=== PATIENT | female | born 1955 | race Caucasian/White ===

== ENCOUNTER → 2017-08-07 | Outpatient (CLI) | payer MEDICARE, SELFPAY | PROVIDERS: Visit Provider Nurse Practitioner Family | DX: J18.9 Pneumonia, unspecified organism (principal) | CPT/HCPCS: 36415; 71020; 80048; 85025; 86738 ==

== ENCOUNTER → 2017-09-15 10:37 | Outpatient (CLI) | payer MEDICARE, SELFPAY ==
--- NOTE | 2017-09-15 10:44 | MM_ITS ---
MM Dig screening mamm BI w/CAD CAD Screening ORDERING PHYSICIAN : Ezra Leyva MD PATIENT AGE: 61 years GENDER: Female COMPARISON: : Previous studies 123 27 August [address] 1-year-old. No hormones no new complaints. Previous aspiration breast. Previous breast reduction. TECHNIQUE: Standard CC and MLO images were obtained. R2 CAD reviewed. Additional MLO and CC nipple profile views bilaterally were performed FINDINGS: Low-density breast bilaterally with no dominant mass nor suspicious calcifications either breast. . no significant interval change in either breast . RIGHT BREAST:Stable right breast. Follow-up in one year. LEFT BREAST:No significant new findings follow up one year IMPRESSION: Stable bilateral mammogram. Low-density breast. No significant new findings. Follow-up one year recommended BI-RADS Category: 1 Negative RECOMMENDED FOLLOW-UP: 1YR - 1 YEAR FOLLOW-UP (A letter has been sent to the patient regarding results of the study.)
== END ==
PROVIDERS: PCP Internal Medicine Adolescent Medicine; Visit Provider Internal Medicine Adolescent Medicine
DX: Z12.31 Encounter for screening mammogram for malignant neoplasm of breast (principal)
CPT/HCPCS: 77067

== ENCOUNTER → 2018-10-02 08:10 | Outpatient (CLI) | payer MEDICARE, SELFPAY ==
--- NOTE | 2018-10-02 08:18 | MM_ITS ---
MM Dig screening mamm BI w/CAD CAD Screening COMPARISON: Digital mammograms with CAD 09/15/2017 and 09/02/2016 INDICATION: There is no personal or family history of breast cancer. The patient had breast reduction surgery 40 years ago TECHNIQUE: Standard CC and MLO images were obtained. R2 CAD reviewed. FINDINGS: The breasts are composed primarily of fat with minimal scattered fibroglandular densities in each breast. There is no new or suspicious lesion in either breast and there are no suspicious microcalcifications. There is no significant post surgical scarring in either breast. IMPRESSION: Fatty type breast parenchyma with no suspicious lesion seen BI-RADS Category: 2 Benign Finding(s) RECOMMENDED FOLLOW-UP: 1YR - 1 YEAR FOLLOW-UP (A letter has been sent to the patient regarding results of the study.)
== END ==
PROVIDERS: PCP Internal Medicine Adolescent Medicine; Visit Provider Internal Medicine Adolescent Medicine
DX: Z12.31 Encounter for screening mammogram for malignant neoplasm of breast (principal)
CPT/HCPCS: 77067

== ENCOUNTER 2018-12-10 16:02 | Observation (INO) ==
[2018-12-10 18:38] LABS: Basophils # 0.1 K/mm3 (0-0.2); Basophils % 0.9 % (0.1-2.0); Eosinophils # 0.5 K/mm3 (0.0-0.4); Eosinophils % 3.9 % (0.1-12.0); Hematocrit 34.4 % (37.0-47.0); Lymphocytes # 3.8 K/mm3 (0.7-4.5); Lymphocytes % 32.9 % (10-50); Mean Corpuscular HGB Conc 29.1 g/dL (31.8-35.4); Mean Corpuscular Hemoglobin 19.2 pg (27.0-31.2); Mean Corpuscular Volume 65.9 fl (81-99); Mean Platelet Volume 7.9 fl (7.4-10.4); Monocytes # 0.5 K/mm3 (0.1-1.0); Monocytes % 4.5 % (1.7-9.3); Neutrophils # 6.7 K/mm3 (1.8-7.8); Neutrophils % 57.8 % (37.0-80.0); Platelet Count 373 K/mm3 (142-424); Red Blood Count 5.21 M/mm3 (4.20-5.40); Red Cell Distribution Width 18.2 % (11.5-17.5); White Blood Count 11.6 K/mm3 (4.8-10.8)
[2018-12-10 19:06] LABS: Albumin Level 3.3 gm/dL (3.4-5.0); Albumin/Globulin Ratio 0.8 (1.1-1.8); Anion Gap 12.7 mEq/L (5-15); Bilirubin,Total 0.4 mg/dL (0.2-1.0); Calcium 9.1 mg/dL (8.5-10.1); Globulin 4.4 gm/dl (1.3-3.2); Potassium 3.7 mmoL/L (3.5-5.1); Total Protein,Serum 7.7 gm/dL (6.4-8.2)
--- NOTE | 2018-12-10 19:42 | History & Physical Report ---
*Admission Date: 12/10/18 *Chief complaint: Hypoxemia, dry cough *History of present illness: Ms. Byrd is a 63-year-old female well-known to our practice with history of reflux, diabetes, hypothyroidism. She additionally has complex medical history with severe thoracic kyphosis. She came to the office today for concern of recurrent pneumonia. Treated within the past 2 to 3 weeks as an outpatient for concern for pneumonia. Finished antibiotics but has had persistent cough. She states her cough is been present for 5 to 6 weeks. Is dry nonproductive. Was found to be hypoxemic in clinic with O2 sat of 86% after walking from the waiting room to the exam room. Additionally patient appeared pale and dyspneic. Sent by private vehicle to [facility] for admission and further assessment. Initial lab work noted to have anemia with severe microcytosis. This is a new finding after review of her outpatient lab work showing normal hemoglobin levels with normal MCV. Strong suspicion the patient has worsening restrictive lung disease due to her body habitus. Denies fevers, nausea vomiting, chest pain. Does report intermittent black stools that self resolved and of gone on for many months. [facility] History I have reviewed the patient's past medical history: Yes Medical History: Reports:: Diabetes Mellitus Type 2, Gastroesophageal Reflux Disease(GERD), Hyperlipidemia, Hypertension Denies:: Asthma, Chronic Obstructive Pulmonary Disease (COPD), Diabetes Mellitus Type 1, Myocardial Infarction, Renal Disease, Renal Insufficiency *Have you ever received a pneumonia vaccine?: No *Have you received a flu vaccine this season?: No Other Medical History: Reports: Arthritis, Liver Disease, Thyroid Disease (THYROIDECTOMY) Other Surgeries: Yes: Appendectomy, Cholecystectomy, Colonoscopy, Dilation and Curettage, Hysterectomy-Total, Thyroidectomy Amputation: No Fractures: No - *Social History Educational Level: Attended College Smoking Status: Never smoker Alcohol Intake: never Alcohol Intake Frequency:: other *Occupational Status:: disabled Housing: house Household Members: spouse *Travel in the last 8 weeks: None - Psychiatric History Expresses thoughts of harming self/others: None Suicide Plan Description: No Plan Family Hx:: Cancer, Heart Attack, Diabetes Review of Systems - Review of Systems Review of systems:: pertinent systems reviewed and negative unless documented below Meds Home Medications Medication Instructions Recorded Confirmed Type aspirin 325 mg tablet 2 tab PO ONCE tab 10/23/17 12/10/18 History calcium carbonate-vitamin D3 600 1 cap PO DAILY 10/23/17 12/10/18 History mg calcium-200 unit capsule cyanocobalamin (vit B-12) 1,000 1,000 mcg PO ONCE 10/23/17 12/10/18 History mcg tablet docusate sodium 100 mg capsule 4 tab PO QHS 10/23/17 12/10/18 History gabapentin 300 mg capsule 300 mg PO BID 90 Days cap 10/23/17 12/10/18 History insulin human U-100 NPH-regulr 14 unit SUB-Q QAM 10/23/17 12/10/18 History 70-30 mix 100 unit/mL subcutaneous susp levothyroxine 50 mcg tablet 50 mcg PO DAILY 90 Days tab 10/23/17 12/10/18 History losartan 50 mg tablet 50 mg PO DAILY 90 Days tab 10/23/17 12/10/18 History metformin 500 mg tablet 2 tab PO BID 90 Days tab 10/23/17 12/10/18 History omeprazole 40 mg capsule,delayed 40 mg PO ONCE 10/23/17 12/10/18 History release pyridoxine (vitamin B6) 100 mg 100 mg PO HS 10/23/17 12/10/18 History tablet rosuvastatin 10 mg tablet 10 mg PO HS 90 Days tab 08/20/18 12/10/18 History Insulin Detemir [Levemir 15 unit SQ HS 12/10/18 12/10/18 History 100units/mL 3mL flexpen] Loratadine/Pseudoephedrine 1 each PO HS 12/10/18 12/10/18 History [Claritin-D 24 Hour Tablet] Potassium 99 mg PO HS 12/10/18 12/10/18 History Pumpkin Seed Extract/Soy Germ [Azo 300 mg PO BID 12/10/18 12/10/18 History Bladder Control Capsule] Allergies Allergy/AdvReac Type Severity Reaction Status Date / Time clonazepam Allergy Severe I-HIVES Verified 10/22/18 10:00 diazepam Allergy Severe I-HIVES Verified 10/22/18 10:00 meperidine Allergy Severe HEMORRHAGE\ Verified 10/22/18 10:00 Penicillins Allergy Severe COMA Verified 10/22/18 10:00 tegaserod [From Zelnorm] Allergy Intermediate I-HIVES Verified 10/22/18 10:00 promethazine Allergy Mild HIVES,NAUSE Verified 10/22/18 10:00 A tramadol Allergy Mild I-HIVES Verified 10/22/18 10:00 canagliflozin [From Invokana] Allergy Unknown Verified 10/22/18 10:00 capsaicin [From Capzasin] Allergy Unknown Blister Verified 12/10/18 17:22 duloxetine [From Cymbalta] Allergy Unknown Verified 10/22/18 10:00 menthol [From Capzasin] Allergy Unknown Blister Verified 12/10/18 17:22 metformin [From Janumet] Allergy Unknown Verified 10/22/18 10:00 sitagliptin [From Janumet] Allergy Unknown Verified 10/22/18 10:00 empagliflozin Allergy Hives Verified 12/10/18 17:22 [From Jardiance] lisinopril AdvReac Cough Verified 12/10/18 17:22 CRANBERRIES Allergy Unknown I-HIVES Uncoded 08/20/18 08:51 Exam Vital signs and Labs for Last 24 Hours: Temp Pulse Resp BP Pulse Ox 98.0 F 82 16 155/78 H 98 12/10/18 17:48 12/10/18 17:48 12/10/18 17:48 12/10/18 17:48 12/10/18 17:48 Laboratory Results - last 24 hr 12/10/18 18:21: WBC 11.6 H, RBC 5.21, Hgb 10.0 L, Hct 34.4 L, MCV 65.9 L, MCH 19.2 L, MCHC 29.1 L, RDW 18.2 H, Plt Count 373, MPV 7.9, Neut % (Auto) 57.8, Lymph % (Auto) 32.9, [place] % (Auto) 4.5, Eos % (Auto) 3.9, Baso % (Auto) 0.9, Neut # (Auto) 6.7, Lymph # (Auto) 3.8, [place] # (Auto) 0.5, Eos # (Auto) 0.5 H, Baso # (Auto) 0.1 12/10/18 18:21: Sodium 138, Potassium 3.7, Chloride 103, Carbon Dioxide 26, Anion Gap 12.7, BUN 13, Creatinine 0.67, Estimated Creat Clear 94, Estimated GFR 89, Est GFR ( Amer) 107, Glucose 99, Calcium 9.1, Magnesium 1.7, Total Bilirubin 0.4, AST 42 H, ALT 40, Alkaline Phosphatase 89, Total Protein 7.7, Albumin 3.3 L, Globulin 4.4 H, Albumin/Globulin Ratio 0.8 L I & O for Last 24 hours: Intake & Output 12/07/18 12/08/18 12/09/18 12/10/18 23:59 23:59 23:59 23:59 Weight 104.355 kg - Constitutional mild distress, obese, chronically ill appearing - *Routine HEENT Exam Head: Present: normocephalic, atraumatic Eye: Present: EOMI, PERRL ENT: Present: mucous membranes moist - *Routine Neck Exam Present: supple, full ROM. Absent: JVD - Routine Chest/Breast/Axilla Exam Chest wall: Absent: tenderness - *Routine Respiratory Exam Present: CTA bilaterally, diminished air movement. Absent: wheezes, crackles - *Routine Cardiovascular Exam Present: RRR, Normal S1, Normal S2. Absent: murmur - *Routine Abdominal Exam Present: soft, normoactive bowel sounds. Absent: tenderness - *Routine Rectal Exam Patient deferred: visual exam - *Routine Exam Patient deferred: external exam - *Routine Extremities Exam Present: edema. Absent: cyanosis, clubbing - Routine Back/Spine/Pelvis Exam Back/Spine: Present: paraspinal tenderness (90 degree kyphotic deformity of thoracic spine) - *Routine Skin Exam Present: intact, pallor. Absent: cyanosis, erythema - *Routine Neurological Exam Present: alert, oriented X3. Absent: altered mental status Assessment and Plan (1) Hypothyroidism Current visit: Yes Status: Chronic Qualifiers: Hypothyroidism type: acquired Qualified Code(s): E03.9 - Hypothyroidism, unspecified Category: Medical Code(s): E03.9 - Hypothyroidism, unspecified Continue levothyroxine (2) Acute hypoxemic respiratory failure Current visit: Yes Status: Acute Category: Medical Code(s): J96.01 - Acute respiratory failure with hypoxia Suspect due to patient's kyphoscoliosis and poor air movement. We will trial BiPAP overnight. Oxygen as needed for goal sats greater than 88 while asleep, greater than 92 while awake. Would benefit from pulmonary consult, will pursue in the outpatient setting. Discussed possibility of physical therapy or orthopedics to pursue alternative therapies for kyphoscoliosis, patient declined at this time as she states these have been pursued before and she is nonoperative and has no interest in seeing physical therapy. Wore a brace previously for a year and found it to be excruciatingly uncomfortable and refuses to even consider doing that again. (3) Restrictive lung disease due to kyphoscoliosis Current visit: Yes Status: Chronic Category: Medical Code(s): J98.4 - Other disorders of lung; M41.9 - Scoliosis, unspecified (4) Diabetes mellitus with diabetic polyneuropathy Current visit: No Status: Chronic Qualifiers: Diabetes mellitus type: type 2 Category: Medical Code(s): E11.42 - Type 2 diabetes mellitus with diabetic polyneuropathy Continue home insulin regimen. (5) Microcytic anemia Current visit: Yes Status: Acute Category: Medical Code(s): D50.9 - Iron deficiency anemia, unspecified Review of previous lab work shows normal hemoglobin levels and normal MCV. Change is acute within the past 2-3 months. IN setting of reported occasional melenic stools, initiate Protonix. Occult stool pending. Will pursue surgical consult to discuss EGD/C-scope. Last colonoscopy performed 2005, cologard Jul 2017. No EGD, takes ASA 325 2 tabs twice daily. Previously TID.
[2018-12-11 07:35] LABS: Basophils # 0.1 K/mm3 (0-0.2); Basophils % 0.8 % (0.1-2.0); Eosinophils # 0.4 K/mm3 (0.0-0.4); Eosinophils % 3.8 % (0.1-12.0); Hemoglobin 9.6 g/dL (12.2-16.2); Lymphocytes % 28.3 % (10-50); Mean Corpuscular HGB Conc 29.9 g/dL (31.8-35.4); Mean Corpuscular Hemoglobin 19.7 pg (27.0-31.2); Mean Corpuscular Volume 65.9 fl (81-99); Mean Platelet Volume 7.8 fl (7.4-10.4); Monocytes # 0.5 K/mm3 (0.1-1.0); Monocytes % 5.1 % (1.7-9.3); Neutrophils # 6.6 K/mm3 (1.8-7.8); Platelet Count 335 K/mm3 (142-424); Red Blood Count 4.85 M/mm3 (4.20-5.40); Red Cell Distribution Width 18.2 % (11.5-17.5); White Blood Count 10.6 K/mm3 (4.8-10.8)
--- NOTE | 2018-12-11 07:38 | Pharmacy Consult Notes ---
[facility] Pharmacy VTE Monitoring - Patient Demographics Admission date: 12/11/18 Report Date: 12/11/18 Time: 07:26 Allergies/Adverse Reactions: Patient Allergies clonazepam Allergy (Severe, Verified 10/22/18 10:00) I-HIVES diazepam Allergy (Severe, Verified 10/22/18 10:00) I-HIVES meperidine Allergy (Severe, Verified 10/22/18 10:00) HEMORRHAGE\ Penicillins Allergy (Severe, Verified 10/22/18 10:00) COMA tegaserod [From Zelnorm] Allergy (Intermediate, Verified 10/22/18 10:00) I-HIVES promethazine Allergy (Mild, Verified 10/22/18 10:00) HIVES,NAUSEA tramadol Allergy (Mild, Verified 10/22/18 10:00) I-HIVES canagliflozin [From Invokana] Allergy (Unknown, Verified 10/22/18 10:00) capsaicin [From Capzasin] Allergy (Unknown, Verified 12/10/18 17:22) Blister duloxetine [From Cymbalta] Allergy (Unknown, Verified 10/22/18 10:00) menthol [From Capzasin] Allergy (Unknown, Verified 12/10/18 17:22) Blister metformin [From Janumet] Allergy (Unknown, Verified 10/22/18 10:00) sitagliptin [From Janumet] Allergy (Unknown, Verified 10/22/18 10:00) empagliflozin [From Jardiance] Allergy (Verified 12/10/18 17:22) Hives lisinopril Adverse Reaction (Verified 12/10/18 17:22) Cough CRANBERRIES Allergy (Unknown, Uncoded 08/20/18 08:51) I-HIVES Height: 1.68 m Weight: 103.504 kg Patient Problems: Current Active Problems (Updated 12/10/18 @ 23:09 by Esteban Villeda MD) Hypothyroidism (Chronic) Acute hypoxemic respiratory failure (Acute) Restrictive lung disease due to kyphoscoliosis (Chronic) Microcytic anemia (Acute) - VTE Risk Labs: VTE Related Lab Results Hgb 10.0 g/dL (12.2-16.2) L 12/10/18 18:21 Hct 34.4 % (37.0-47.0) L 12/10/18 18:21 Plt Count 373 K/mm3 (142-424) 12/10/18 18:21 BUN 13 mg/dL (7-18) 12/10/18 18:21 Creatinine 0.67 mg/dL (0.55-1.02) 12/10/18 18:21 Estimated Creat Clear 94 mL/min (50-200) 12/10/18 18:21 Was VTE Risk Assessment Performed: Yes VTE Score: 7 VTE Risk Level: Moderate Risk Clinical Trial Participant: No - Prophylaxis Types of VTE Prophylaxis: TEDS Knee High
[2018-12-11 07:45] LABS: Anion Gap 12.1 mEq/L (5-15); Calcium 8.8 mg/dL (8.5-10.1); Potassium 4.1 mmoL/L (3.5-5.1)
--- NOTE | 2018-12-11 08:25 | Consult Report ---
*Admission Date: 12/11/18 *Chief complaint: Cough, Shortness of Air *History of present illness: Patient is a 63-year-old white female with chronic lung disease and significant kyphosis with resultant chronic pain for which she has been taking aspirin 325 mg 3 times a day. She has recently been treated for pneumonia as an outpatient. She presented to her primary care provider's office yesterday with concerns for recurrent pneumonia due to cough and shortness of air. She was admitted and found to have microcytic anemia. Patient does admit to some self-limited melanic stools. Surgical consultation was obtained for possible endoscopy. Review of Systems - Review of Systems Review of systems:: pertinent systems reviewed and negative unless documented below [facility] History Medical History: Reports:: Diabetes Mellitus Type 2, Gastroesophageal Reflux Disease(GERD), Hyperlipidemia, Hypertension Denies:: Asthma, Chronic Obstructive Pulmonary Disease (COPD), Diabetes Mellitus Type 1, Myocardial Infarction, Renal Disease, Renal Insufficiency *Have you ever received a pneumonia vaccine?: No *Have you received a flu vaccine this season?: No Other Medical History: Reports: Arthritis, Liver Disease, Thyroid Disease (THYROIDECTOMY) Other Surgeries: Yes: Appendectomy, Cholecystectomy, Colonoscopy, Dilation and Curettage, Hysterectomy-Total, Thyroidectomy Amputation: No Fractures: No - *Social History Educational Level: Attended College Smoking Status: Never smoker Alcohol Intake: never Alcohol Intake Frequency:: other *Occupational Status:: disabled Housing: house Household Members: spouse *Travel in the last 8 weeks: None - Psychiatric History Expresses thoughts of harming self/others: None Suicide Plan Description: No Plan Family Hx:: Cancer, Heart Attack, Diabetes Meds Home Medications Medication Instructions Recorded Confirmed Type aspirin 325 mg tablet 2 tab PO ONCE tab 10/23/17 12/10/18 History calcium carbonate-vitamin D3 600 1 cap PO DAILY 10/23/17 12/10/18 History mg calcium-200 unit capsule cyanocobalamin (vit B-12) 1,000 1,000 mcg PO ONCE 10/23/17 12/10/18 History mcg tablet docusate sodium 100 mg capsule 4 tab PO QHS 10/23/17 12/10/18 History gabapentin 300 mg capsule 300 mg PO BID 90 Days cap 10/23/17 12/10/18 History insulin human U-100 NPH-regulr 14 unit SUB-Q QAM 10/23/17 12/10/18 History 70-30 mix 100 unit/mL subcutaneous susp levothyroxine 50 mcg tablet 50 mcg PO DAILY 90 Days tab 10/23/17 12/10/18 History losartan 50 mg tablet 50 mg PO DAILY 90 Days tab 10/23/17 12/10/18 History metformin 500 mg tablet 2 tab PO BID 90 Days tab 10/23/17 12/10/18 History omeprazole 40 mg capsule,delayed 40 mg PO ONCE 10/23/17 12/10/18 History release pyridoxine (vitamin B6) 100 mg 100 mg PO HS 10/23/17 12/10/18 History tablet rosuvastatin 10 mg tablet 10 mg PO HS 90 Days tab 08/20/18 12/10/18 History Insulin Detemir [Levemir 15 unit SQ HS 12/10/18 12/10/18 History 100units/mL 3mL flexpen] Loratadine/Pseudoephedrine 1 each PO HS 12/10/18 12/10/18 History [Claritin-D 24 Hour Tablet] Potassium 99 mg PO HS 12/10/18 12/10/18 History Pumpkin Seed Extract/Soy Germ [Azo 300 mg PO BID 12/10/18 12/10/18 History Bladder Control Capsule] Allergies Allergy/AdvReac Type Severity Reaction Status Date / Time clonazepam Allergy Severe I-HIVES Verified 10/22/18 10:00 diazepam Allergy Severe I-HIVES Verified 10/22/18 10:00 meperidine Allergy Severe HEMORRHAGE\ Verified 10/22/18 10:00 Penicillins Allergy Severe COMA Verified 10/22/18 10:00 tegaserod [From Zelnorm] Allergy Intermediate I-HIVES Verified 10/22/18 10:00 promethazine Allergy Mild HIVES,NAUSE Verified 10/22/18 10:00 A tramadol Allergy Mild I-HIVES Verified 10/22/18 10:00 canagliflozin [From Invokana] Allergy Unknown Verified 10/22/18 10:00 capsaicin [From Capzasin] Allergy Unknown Blister Verified 12/10/18 17:22 duloxetine [From Cymbalta] Allergy Unknown Verified 10/22/18 10:00 menthol [From Capzasin] Allergy Unknown Blister Verified 12/10/18 17:22 metformin [From Janumet] Allergy Unknown Verified 10/22/18 10:00 sitagliptin [From Janumet] Allergy Unknown Verified 10/22/18 10:00 empagliflozin Allergy Hives Verified 12/10/18 17:22 [From Jardiance] lisinopril AdvReac Cough Verified 12/10/18 17:22 CRANBERRIES Allergy Unknown I-HIVES Uncoded 08/20/18 08:51 Exam Vital signs and Labs for Last 24 Hours: Temp Pulse Resp BP Pulse Ox 98.1 F 77 16 149/61 H 97 12/11/18 04:00 12/11/18 04:00 12/11/18 04:00 12/11/18 04:00 12/11/18 04:00 Laboratory Results - last 24 hr 12/10/18 18:21: WBC 11.6 H, RBC 5.21, Hgb 10.0 L, Hct 34.4 L, MCV 65.9 L, MCH 19.2 L, MCHC 29.1 L, RDW 18.2 H, Plt Count 373, MPV 7.9, Neut % (Auto) 57.8, Lymph % (Auto) 32.9, [place] % (Auto) 4.5, Eos % (Auto) 3.9, Baso % (Auto) 0.9, Neut # (Auto) 6.7, Lymph # (Auto) 3.8, [place] # (Auto) 0.5, Eos # (Auto) 0.5 H, Baso # (Auto) 0.1 12/10/18 18:21: Sodium 138, Potassium 3.7, Chloride 103, Carbon Dioxide 26, Anion Gap 12.7, BUN 13, Creatinine 0.67, Estimated Creat Clear 94, Estimated GFR 89, Est GFR ( Amer) 107, Glucose 99, Calcium 9.1, Magnesium 1.7, Total Bilirubin 0.4, AST 42 H, ALT 40, Alkaline Phosphatase 89, Total Protein 7.7, Al bumin 3.3 L, Globulin 4.4 H, Albumin/Globulin Ratio 0.8 L 12/10/18 18:25: Hemoglobin A1c 8.6 H 12/10/18 18:25: Ferritin 4 L 12/10/18 21:53: POC Glucose 201 H 12/11/18 07:25: WBC 10.6, RBC 4.85, Hgb 9.6 L, Hct 32.0 L, MCV 65.9 L, MCH 19.7 L, MCHC 29.9 L, RDW 18.2 H, Plt Count 335, MPV 7.8, Neut % (Auto) 62.0, Lymph % (Auto) 28.3, [place] % (Auto) 5.1, Eos % (Auto) 3.8, Baso % (Auto) 0.8, Neut # (Auto) 6.6, Lymph # (Auto) 3.0, [place] # (Auto) 0.5, Eos # (Auto) 0.4, Baso # (Auto) 0.1 12/11/18 07:25: Sodium 139, Potassium 4.1, Chloride 104, Carbon Dioxide 27, Anion Gap 12.1, BUN 11, Creatinine 0.72, Estimated Creat Clear 93, Estimated GFR 82, Est GFR ( Amer) 99, Glucose 163 H D, Calcium 8.8 I & O for Last 24 hours: Intake & Output 12/08/18 12/09/18 12/10/18 12/11/18 11:59 11:59 11:59 11:59 Intake Total 753 / 753 Balance 753 / 753 Weight 228 lb 3 oz - *Routine HEENT Exam Head: Present: normocephalic Eye: Present: EOMI, PERRL ENT: Present: mucous membranes moist - *Routine Neck Exam Present: supple. Absent: lymphadenopathy - *Routine Respiratory Exam Present: decreased breath sounds, CTA bilaterally - *Routine Cardiovascular Exam Present: RRR - *Routine Abdominal Exam Present: soft. Absent: tenderness - *Routine Extremities Exam Absent: cyanosis, clubbing, edema - *Routine Skin Exam Present: pallor. Absent: rash - *Routine Neurological Exam Present: alert, oriented X3 - Detailed Eye Exam Eyelids: Left normal inspection Results - Labs 12/11/18 07:25 12/11/18 07:25 Laboratory Results - last 24 hr 12/10/18 18:21: WBC 11.6 H, RBC 5.21, Hgb 10.0 L, Hct 34.4 L, MCV 65.9 L, MCH 19.2 L, MCHC 29.1 L, RDW 18.2 H, Plt Count 373, MPV 7.9, Neut % (Auto) 57.8, Lymph % (Auto) 32.9, [place] % (Auto) 4.5, Eos % (Auto) 3.9, Baso % (Auto) 0.9, Neut # (Auto) 6.7, Lymph # (Auto) 3.8, [place] # (Auto) 0.5, Eos # (Auto) 0.5 H, Baso # (Auto) 0.1 12/10/18 18:21: Sodium 138, Potassium 3.7, Chloride 103, Carbon Dioxide 26, Anion Gap 12.7, BUN 13, Creatinine 0.67, Estimated Creat Clear 94, Estimated GFR 89, Est GFR ( Amer) 107, Glucose 99, Calcium 9.1, Magnesium 1.7, Total Bilirubin 0.4, AST 42 H, ALT 40, Alkaline Phosphatase 89, Total Protein 7.7, Albumin 3.3 L, Globulin 4.4 H, Albumin/Globulin Ratio 0.8 L 12/10/18 18:25: Hemoglobin A1c 8.6 H 12/10/18 18:25: Ferritin 4 L 12/10/18 21:53: POC Glucose 201 H 12/11/18 07:25: WBC 10.6, RBC 4.85, Hgb 9.6 L, Hct 32.0 L, MCV 65.9 L, MCH 19.7 L, MCHC 29.9 L, RDW 18.2 H, Plt Count 335, MPV 7.8, Neut % (Auto) 62.0, Lymph % (Auto) 28.3, [place] % (Auto) 5.1, Eos % (Auto) 3.8, Baso % (Auto) 0.8, Neut # (Auto) 6.6, Lymph # (Auto) 3.0, [place] # (Auto) 0.5, Eos # (Auto) 0.4, Baso # (Auto) 0.1 12/11/18 07:25: Sodium 139, Potassium 4.1, Chloride 104, Carbon Dioxide 27, Anion Gap 12.1, BUN 11, Creatinine 0.72, Estimated Creat Clear 93, Estimated GFR 82, Est GFR ( Amer) 99, Glucose 163 H D, Calcium 8.8 Assessment and Plan (1) Hypothyroidism Current visit: Yes Status: Chronic Qualifiers: Hypothyroidism type: acquired Qualified Code(s): E03.9 - Hypothyroidism, unspecified Category: Medical Code(s): E03.9 - Hypothyroidism, unspecified (2) Acute hypoxemic respiratory failure Current visit: Yes Status: Acute Category: Medical Code(s): J96.01 - Acute respiratory failure with hypoxia (3) Restrictive lung disease due to kyphoscoliosis Current visit: Yes Status: Chronic Category: Medical Code(s): J98.4 - Other disorders of lung; M41.9 - Scoliosis, unspecified (4) Diabetes mellitus with diabetic polyneuropathy Current visit: No Status: Chronic Qualifiers: Diabetes mellitus type: type 2 Category: Medical Code(s): E11.42 - Type 2 diabetes mellitus with diabetic polyneuropathy (5) Microcytic anemia Current visit: Yes Status: Acute Category: Medical Code(s): D50.9 - Iron deficiency anemia, unspecified Due to her iron deficiency microcytic anemia plan for upper endoscopy to evaluate for significant gastritis versus ulcer disease.
--- NOTE | 2018-12-11 11:18 | Discharge Summary ---
General - General Admission date:: 12/10/18 Discharge date: 12/11/18 HPI HPI: Ms. Byrd is a 63-year-old female well-known to our practice with history of reflux, diabetes, hypothyroidism. She additionally has complex medical history with severe thoracic kyphosis. She came to the office today for concern of recurrent pneumonia. Treated within the past 2 to 3 weeks as an outpatient for concern for pneumonia. Finished antibiotics but has had persistent cough. She states her cough is been present for 5 to 6 weeks. Is dry nonproductive. Was found to be hypoxemic in clinic with O2 sat of 86% after walking from the waiting room to the exam room. Additionally patient appeared pale and dyspneic. Sent by private vehicle to [facility] for admission and further assessment. Initial lab work noted to have anemia with severe microcytosis. This is a new finding after review of her outpatient lab work showing normal hemoglobin levels with normal MCV. Strong suspicion the patient has worsening restrictive lung disease due to her body habitus. Denies fevers, nausea vomiting, chest pain. Does report intermittent black stools that self resolved and of gone on for many months. Hospital Course Hospital Course: Ms. Byrd is a 63-year-old female with severe kyphoscoliosis who was admitted from clinic due to hypoxemic respiratory failure. Symptoms improved during hospitalization and with treatment. Attempted BiPAP overnight to assist with oxygenation and ventilation given patient's body habitus and poor expansion of her lungs, she was intolerant of this however due to claustrophobia. Recommended continued oxygen use at time of discharge. Additionally patient was noted to have severe microcytic anemia of unknown etiology that has been a new finding in just the past 3 months. Was taken for endoscopy and found to not have any active source of bleeding. Surgery will follow up with patient in the outpatient setting to pursue possible colonoscopy. Recommended oral iron supplementation at time of discharge. Medically stable on baseline oxygen requirement. Denies chest pain, shortness of breath, nausea vomiting, melenic stools. Discharged home for further outpatient management of her conditions. Objective Vital signs: Temp Pulse Resp BP Pulse Ox 98.1 F 77 18 151/61 H 95 12/11/18 08:00 12/11/18 08:00 12/11/18 08:00 12/11/18 08:00 12/11/18 08:00 Narrative: - Constitutional mild distress, obese, chronically ill appearing - *Routine HEENT Exam Head: Present: normocephalic, atraumatic Eye: Present: EOMI, PERRL ENT: Present: mucous membranes moist - *Routine Neck Exam Present: supple, full ROM. Absent: JVD - Routine Chest/Breast/Axilla Exam Chest wall: Absent: tenderness - *Routine Respiratory Exam Present: CTA bilaterally, diminished air movement. Absent: wheezes, crackles - *Routine Cardiovascular Exam Present: RRR, Normal S1, Normal S2. Absent: murmur - *Routine Abdominal Exam Present: soft, normoactive bowel sounds. Absent: tenderness - *Routine Extremities Exam Present: edema. Absent: cyanosis, clubbing - Routine Back/Spine/Pelvis Exam Back/Spine: Present: paraspinal tenderness (90 degree kyphotic deformity of thoracic spine) - *Routine Skin Exam Present: intact, pallor. Absent: cyanosis, erythema - *Routine Neurological Exam Present: alert, oriented X3. Absent: altered mental status Results Labs on day of discharge: Labs from last 24 hours 12/11/18 12/11/18 12/10/18 07:25 07:25 21:53 WBC 10.6 RBC 4.85 Hgb 9.6 L Hct 32.0 L MCV 65.9 L MCH 19.7 L MCHC 29.9 L RDW 18.2 H Plt Count 335 MPV 7.8 Neut % (Auto) 62.0 Lymph % (Auto) 28.3 [place] % (Auto) 5.1 Eos % (Auto) 3.8 Baso % (Auto) 0.8 Neut # (Auto) 6.6 Lymph # (Auto) 3.0 [place] # (Auto) 0.5 Eos # (Auto) 0.4 Baso # (Auto) 0.1 Sodium 139 Potassium 4.1 Chloride 104 Carbon Dioxide 27 Anion Gap 12.1 BUN 11 Creatinine 0.72 Estimated Creat Clear 93 Estimated GFR 82 Est GFR ( Amer) 99 Glucose 163 H D POC Glucose 201 H Hemoglobin A1c Calcium 8.8 Magnesium Ferritin Total Bilirubin AST ALT Alkaline Phosphatase Total Protein Albumin Globulin Albumin/Globulin Ratio 12/10/18 12/10/18 12/10/18 18:25 18:25 18:21 WBC RBC Hgb Hct MCV MCH MCHC RDW Plt Count MPV Neut % (Auto) Lymph % (Auto) [place] % (Auto) Eos % (Auto) Baso % (Auto) Neut # (Auto) Lymph # (Auto) [place] # (Auto) Eos # (Auto) Baso # (Auto) Sodium 138 Potassium 3.7 Chloride 103 Carbon Dioxide 26 Anion Gap 12.7 BUN 13 Creatinine 0.67 Estimated Creat Clear 94 Estimated GFR 89 Est GFR ( Amer) 107 Glucose 99 POC Glucose Hemoglobin A1c 8.6 H Calcium 9.1 Magnesium 1.7 Ferritin 4 L Total Bilirubin 0.4 AST 42 H ALT 40 Alkaline Phosphatase 89 Total Protein 7.7 Albumin 3.3 L Globulin 4.4 H Albumin/Globulin Ratio 0.8 L 12/10/18 18:21 WBC 11.6 H RBC 5.21 Hgb 10.0 L Hct 34.4 L MCV 65.9 L MCH 19.2 L MCHC 29.1 L RDW 18.2 H Plt Count 373 MPV 7.9 Neut % (Auto) 57.8 Lymph % (Auto) 32.9 [place] % (Auto) 4.5 Eos % (Auto) 3.9 Baso % (Auto) 0.9 Neut # (Auto) 6.7 Lymph # (Auto) 3.8 [place] # (Auto) 0.5 Eos # (Auto) 0.5 H Baso # (Auto) 0.1 Sodium Potassium Chloride Carbon Dioxide Anion Gap BUN Creatinine Estimated Creat Clear Estimated GFR Est GFR ( Amer) Glucose POC Glucose Hemoglobin A1c Calcium Magnesium Ferritin Total Bilirubin AST ALT Alkaline Phosphatase Total Protein Albumin Globulin Albumin/Globulin Ratio DS: Diagnosis - Discharge Diagnosis (1) Hypothyroidism Status: Chronic (2) Acute hypoxemic respiratory failure Status: Acute (3) Restrictive lung disease due to kyphoscoliosis Status: Chronic (4) Diabetes mellitus with diabetic polyneuropathy Status: Chronic (5) Microcytic anemia Status: Acute Discharge Plan - Patient Discharge Instructions ACTIVITY: Continue current activity DIET: low fat, low cholesterol Patient Instructions: DI for Respiratory Failure, DI for Hypoxia - Follow up Plan Follow up with: Jake Enrique MD [Staff Physician] - 1 week (needs Out patient C-scope as well.) Ezra Leyva MD [Staff Physician] - 1 week (May follow with Ronal or Aut[facility].) Disposition: Home, Self-[facility] Medications: Home Medications Medication Instructions Recorded Confirmed Type calcium carbonate-vitamin D3 600 1 cap PO DAILY 10/23/17 12/18/18 History mg calcium-200 unit capsule cyanocobalamin (vit B-12) 1,000 1,000 mcg PO DAILY 10/23/17 12/18/18 History mcg tablet docusate sodium 100 mg capsule 300 mg PO QHS 10/23/17 12/18/18 History gabapentin 300 mg capsule 300 mg PO BID 90 Days cap 10/23/17 12/18/18 History insulin human U-100 NPH-regulr 14 unit SUB-Q QAM 10/23/17 12/18/18 History 70-30 mix 100 unit/mL subcutaneous susp levothyroxine 50 mcg tablet 50 mcg PO DAILY 90 Days tab 10/23/17 12/18/18 History losartan 50 mg tablet 50 mg PO DAILY 90 Days tab 10/23/17 12/18/18 History metformin 500 mg tablet 1,000 mg PO BID 90 Days tab 10/23/17 12/18/18 History pyridoxine (vitamin B6) 100 mg 100 mg PO HS 10/23/17 12/18/18 History tablet rosuvastatin 10 mg tablet 10 mg PO HS 90 Days tab 08/20/18 12/18/18 History Insulin Detemir [Levemir 15 unit SQ HS 12/10/18 12/18/18 History 100units/mL 3mL flexpen] Loratadine/Pseudoephedrine 1 each PO HS 12/10/18 12/18/18 History [Claritin-D 24 Hour Tablet] Potassium 99 mg PO HS 12/10/18 12/18/18 History Pumpkin Seed Extract/Soy Germ [Azo 300 mg PO BID 12/10/18 12/18/18 History Bladder Control Capsule] Ferrous Sulfate [Ferrous Sulfate 325 mg PO DAILY 30 Days #30 tab 12/11/18 12/18/18 Rx 325mg Tablet] Pantoprazole Sodium [Protonix 40mg 40 mg PO BID 30 Days #60 tablet. 12/11/18 12/18/18 Rx tablet] Prescriptions/Medication Reconciliation: New Pantoprazole Sodium [Protonix 40mg tablet] 40 mg PO BID 30 Days #60 tablet. Ferrous Sulfate [Ferrous Sulfate 325mg Tablet] 325 mg PO DAILY 30 Days #30 tab Continued levothyroxine 50 mcg tablet 50 mcg PO DAILY 90 Days tab metformin 500 mg tablet 1,000 mg PO BID 90 Days tab losartan 50 mg tablet 50 mg PO DAILY 90 Days tab insulin human U-100 NPH-regulr 70-30 mix 100 unit/mL subcutaneous susp 14 unit SUB-Q QAM gabapentin 300 mg capsule 300 mg PO BID 90 Days cap calcium carbonate-vitamin D3 600 mg calcium-200 unit capsule 1 cap PO DAILY pyridoxine (vitamin B6) 100 mg tablet 100 mg PO HS cyanocobalamin (vit B-12) 1,000 mcg tablet 1,000 mcg PO DAILY docusate sodium 100 mg capsule 300 mg PO QHS rosuvastatin 10 mg tablet 10 mg PO HS 90 Days tab Potassium 99 mg PO HS Loratadine/Pseudoephedrine [Claritin-D 24 Hour Tablet] 1 each PO HS Insulin Detemir [Levemir 100units/mL 3mL flexpen] 15 unit SQ HS Pumpkin Seed Extract/Soy Germ [Azo Bladder Control Capsule] 300 mg PO BID Discontinued omeprazole 40 mg capsule,delayed release 40 mg PO DAILY aspirin 325 mg tablet 2 tab PO ONCE tab
--- NOTE | 2018-12-11 12:12 | Progress Note ---
[facility] Anesthesia Checklist - Structural Data Admitted From: Inpatient Planned Operative Procedure/s: egd Consent for Planned Operative Procedure(s) Verified: Yes - Airway Assessment C-Spine Mobility Assessed: Yes TMJ Mobility Assessed: Yes Dentition: Good Dentition - Neurological Assessment Level of Consciousness: Awake, Alert, Appropriate - Anesthesia Plan Anesthesia Risk discussed: Yes Anesthesia Plan: Verified ASA Class: II Anesthesia Type: MAC [facility] History I have reviewed the patient's past medical history: Yes Medical History: Reports:: Diabetes Mellitus Type 2, Gastroesophageal Reflux Disease(GERD), Hyperlipidemia, Hypertension Denies:: Asthma, Chronic Obstructive Pulmonary Disease (COPD), Diabetes Mellitus Type 1, Myocardial Infarction, Renal Disease, Renal Insufficiency *Have you ever received a pneumonia vaccine?: No *Have you received a flu vaccine this season?: No Other Medical History: Reports: Arthritis, Liver Disease, Thyroid Disease (THYROIDECTOMY) Other Surgeries: Yes: Appendectomy, Cholecystectomy, Colonoscopy, Dilation and Curettage, Hysterectomy-Total, Thyroidectomy Amputation: No Fractures: No - *Social History Educational Level: Attended College Smoking Status: Never smoker Alcohol Intake: never Alcohol Intake Frequency:: other *Occupational Status:: disabled Housing: house Household Members: spouse *Travel in the last 8 weeks: None - Psychiatric History Expresses thoughts of harming self/others: None Suicide Plan Description: No Plan Family Hx:: Cancer, Heart Attack, Diabetes
--- NOTE | 2018-12-11 12:58 | Procedure Note ---
- Procedure: Date: 12/11/18 Procedure Performed:: Esophagogastroduodenoscopy Indications:: Patient is a 63-year-old white female with chronic respiratory issues and significant kyphosis with chronic pain for which she has been taking 3-6 aspirin daily until recently. She had presented to her primary care provider's office yesterday with concerns for pneumonia due to shortness of air and cough. She was found to have mild microcytic anemia and was admitted for inpatient management and surgical consultation to evaluate for possible GI blood loss source. Performing Provider:: Jake Enrique MD Referring Provider:: Esteban Villeda MD Sedation:: Propofol Procedure:: Consent was obtained and patient was taken to endoscopy procedure room. Adequate intravenous sedation was achieved. Olympus endoscope was inserted via the oropharynx and advanced through the esophagus. Esophagus overall appeared normal. The gastroesophageal junction was encountered approximately 37 cm from the incisors. Stomach was cannulated and insufflated. Retroflexion revealed a very small hiatal hernia. There were 1 or 2 small fundic gland polyps. In the antrum there was some linear nonerosive gastritis. Pylorus was traversed. Duodenal bulb and duodenal sweep appeared unremarkable. The endoscope was advanced generous distance into the duodenum with careful surveillance. There is no evidence of any ulcers or stigmata of recent bleeding. The stomach was desufflated and the endoscope was withdrawn. Findings:: Small hiatal hernia Recommendations:: No source of active or recent bleeding on upper endoscopy. It may be reasonable to pursue a colonoscopy which could be done as an outpatient. Her anemia may also be secondary to non-GI blood loss etiology. Complications:: None Estimated blood obtained (mL): 0
== END 2018-12-11 03:30 | disposition home or self-care (01) ==
LOC: 2ND
PROVIDERS: ADMIT Internal Medicine Adolescent Medicine; ATTEND Internal Medicine Adolescent Medicine
CPT/HCPCS: 36415; 71020; 71046; 80048; 80053; 82272; 82728; 82962; 83036; 83540; 83550; 83735; 85025; 94761; G0328; G0378

== ENCOUNTER → 2018-12-21 11:28 | Outpatient (CLI) | payer MEDICARE, SELFPAY ==
[2018-12-21 11:39] LABS: Basophils # 0.1 K/mm3 (0-0.2); Basophils % 0.7 % (0.1-2.0); Eosinophils # 0.4 K/mm3 (0.0-0.4); Eosinophils % 2.9 % (0.1-12.0); Hematocrit 36.9 % (37.0-47.0); Hemoglobin 10.5 g/dL (12.2-16.2); Lymphocytes # 3.3 K/mm3 (0.7-4.5); Lymphocytes % 25.7 % (10-50); Mean Corpuscular HGB Conc 28.3 g/dL (31.8-35.4); Mean Corpuscular Hemoglobin 19.7 pg (27.0-31.2); Mean Corpuscular Volume 69.4 fl (81-99); Mean Platelet Volume 7.2 fl (7.4-10.4); Monocytes # 0.6 K/mm3 (0.1-1.0); Monocytes % 4.8 % (1.7-9.3); Neutrophils # 8.4 K/mm3 (1.8-7.8); Platelet Count 358 K/mm3 (142-424); Red Blood Count 5.31 M/mm3 (4.20-5.40); Red Cell Distribution Width 20.6 % (11.5-17.5); White Blood Count 12.7 K/mm3 (4.8-10.8)
[2018-12-21 13:21] LABS: Alanine Aminotransferase 48 U/L (12-78); Albumin Level 3.4 gm/dL (3.4-5.0); Albumin/Globulin Ratio 0.8 (1.1-1.8); Alkaline Phosphatase 107 U/L (46-116); Anion Gap 14.4 mEq/L (5-15); Aspartate Amino Transferase 49 U/L (15-37); Bilirubin,Total 0.5 mg/dL (0.2-1.0); Blood Urea Nitrogen 13 mg/dL (7-18); Calcium 9.1 mg/dL (8.5-10.1); Carbon Dioxide 27 mmol/L (21.0-32.0); Chloride 101 mmol/L (98-107); Creatinine,Serum 0.83 mg/dL (0.55-1.02); Estimated Glomerular Filt Rate 69 ml/min (>60); Ferritin 6 ng/mL (8-388); GFR (African American) 84 ML/MIN (>60); Globulin 4.1 gm/dl (1.3-3.2); Glucose 258 mg/dL (74-106); Iron 21 ug/dl (28-170); Potassium 4.4 mmoL/L (3.5-5.1); Sodium 138 mmol/L (136-145); Total Protein,Serum 7.5 gm/dL (6.4-8.2)
== END ==
PROVIDERS: Visit Provider Internal Medicine Adolescent Medicine
DX: D50.9 Iron deficiency anemia, unspecified (principal); I10 Essential (primary) hypertension
CPT/HCPCS: 36415; 80053; 82728; 83540; 85025

== ENCOUNTER → 2019-09-06 14:53 | Outpatient (CLI) | payer MEDICARE, SELFPAY ==
--- NOTE | 2019-09-06 14:59 | XR_ITS ---
PROCEDURE: XR CHEST 2V CLINICAL HISTORY: ANKYLOSING SPONDYLITIS , FATIGUE COMPARISON: CXR CHEST(2 VIEWS-NOT PORTABLE) from 08/07/2017 CXR2V XR chest 2V from 12/10/2018 FINDINGS: The cardiomediastinal silhouette and pulmonary vascularity are within normal limits. There is a 1 cm nodule in the right upper lobe unchanged There is kyphosis of the thoracic spine with ankylosis not significantly changed. No acute fracture. IMPRESSION: No change no acute finding. Ankylosis of the thoracic spine. Dictated by: Dennys Maldonado MD 09/06/2019 16:04 Electronically signed by Dennys Maldonado MD in [place] 09/06/2019 16:04
== END ==
PROVIDERS: PCP Internal Medicine Adolescent Medicine; Visit Provider Internal Medicine
DX: M45.9 Ankylosing spondylitis of unspecified sites in spine (principal); R53.83 Other fatigue
CPT/HCPCS: 71046

== ENCOUNTER → 2019-10-13 16:44 | Outpatient (CLI) | payer MEDICARE, SELFPAY ==
--- NOTE | 2019-10-13 16:50 | MM_ITS ---
PROCEDURE: MM DIG SCREENING MAMM BI W/CAD Digital Breast Tomosynthesis Included CLINICAL INDICATION: SCREENING There is no personal or family history of breast cancer. COMPARISON: [facility] DIG MAMM-SCREEN MARIA A W/CAD from 09/02/2016 [facility] MM Dig screening mamm BI w/CAD from 09/15/2017 [facility] MM Dig screening mamm BI w/CAD from 10/02/2018 TECHNIQUE: Standard CC and MLO images and 3D Tomosynthesis was obtained. R2 CAD reviewed. FINDINGS: The breasts are composed almost entirely of fat with very minimal scattered fibroglandular densities noted. Atif images were reviewed. There is no suspicious lesion in either breast and no suspicious microcalcifications. IMPRESSION: Fatty type breast parenchyma with no suspicious lesions seen BI-RAD Category: 1 Negative FOLLOW-UP: 1YR 1 Year Follow-up (A letter has been sent to the patient regarding results of the study.) Dictated by: Dr. Caio Mata MD 10/15/2019 11:[address] Caio Mata MD in [place] 10/15/2019 11:21
== END ==
PROVIDERS: PCP Internal Medicine Adolescent Medicine; Visit Provider Internal Medicine Adolescent Medicine
DX: Z12.31 Encounter for screening mammogram for malignant neoplasm of breast (principal)
CPT/HCPCS: 77063; 77067

== ENCOUNTER → 2020-10-25 09:16 | Outpatient (CLI) | payer MEDICARE, SELFPAY ==
--- NOTE | 2020-10-25 09:19 | MM_ITS ---
PROCEDURE: MM DIG SCREENING MAMM BI W/CAD Digital Breast Tomosynthesis Included CLINICAL INDICATION: SCREENING There is no personal or family history of breast cancer. There have been previous cyst aspirations on each breast with benign findings. COMPARISON: MG [facility] MM Dig screening mamm BI w/CAD from 09/15/2017 MG [facility] MM Dig screening mamm BI w/CAD from 10/02/2018 MG MM DIG SCREENING MAMM BI W/CAD from 10/13/2019 TECHNIQUE: Standard CC and MLO images and 3D Tomosynthesis was obtained. R2 CAD reviewed. FINDINGS: The breasts are composed almost entirely of fat with very minimal scattered fibroglandular densities in each breast. There is a small nodular density right breast which has been seen previously but may have shown a slight interval increase in size from previous studies. Recommend the patient return for spot compression views and ultrasound for additional evaluation. There are no suspicious microcalcifications. IMPRESSION: Fatty type breast parenchyma with possible change in density right breast BI-RAD Category: 0 Need Additional Imaging Evaluation FOLLOW-UP: IMM Immediate Follow-up Recommended (A letter has been sent to the patient regarding results of the study.) Dictated by: Dr. Caio Mata MD 10/29/2020 09:36 Dr. Caio Mata MD in [place] 10/29/2020 09:36
== END ==
PROVIDERS: PCP Internal Medicine Adolescent Medicine; Visit Provider Internal Medicine Adolescent Medicine
DX: Z12.31 Encounter for screening mammogram for malignant neoplasm of breast (principal)
CPT/HCPCS: 77063; 77067

== ENCOUNTER → 2020-11-17 13:42 | Outpatient (CLI) | payer MEDICARE, SELFPAY ==
--- NOTE | 2020-11-17 13:53 | US_ITS ---
PROCEDURE: MM DIG MAMM DX UNILAT RT CAD Digital Breast Tomosynthesis Included CLINICAL INDICATION: ABN MAMM COMPARISON: MG [facility] DIG MAMM-SCREEN MARIA A from 08/30/2015 MG [facility] MM Dig screening mamm BI w/CAD from 09/15/2017 MG [facility] MM Dig screening mamm BI w/CAD from 10/02/2018 MG MM DIG SCREENING MAMM BI W/CAD from 10/13/2019 MG MM DIG SCREENING MAMM BI W/CAD from 10/25/2020 US US BREAST RT COMPLETE from 11/17/2020 TECHNIQUE: Spot compression views and rolled views of the right breast along with right breast ultrasound FINDINGS: There is an asymmetric nodular density involving the medial aspect of the right breast in the subcutaneous area on the medial rolled view. There is some minimal calcification noted within the nodule on mL view. This has been present dating back to 09/15/2017. The nodule measures approximately 7 by 7 mm probably benign. Due to the minimal calcification and slight increased prominence from the previous study would recommend six-month follow-up. Right breast ultrasound: No sonographic abnormalities are apparent. Specifically, no nodular lesions located within the medial aspect of the right breast. IMPRESSION: Probably benign nodule medial right breast. Recommend six-month mammographic follow-up BI-RAD Category: 3 Probably Benign Finding Short Term Follow-up FOLLOW-UP: 6M 6Month Follow-up (A letter has been sent to the patient regarding results of the study.) Dictated by: Dennys Maldonado MD 11/24/2020 12:43 Dennys Maldonado MD in [place] 11/24/2020 12:43
== END ==
PROVIDERS: PCP Internal Medicine Adolescent Medicine; Visit Provider Internal Medicine Adolescent Medicine
DX: R92.8 Other abnormal and inconclusive findings on diagnostic imaging of breast (principal)
CPT/HCPCS: 76641; 77061; 77065; G0279

== ENCOUNTER → 2021-05-15 13:23 | Outpatient (CLI) | payer MEDICARE, SELFPAY ==
--- NOTE | 2021-05-15 13:27 | MM_ITS ---
PROCEDURE: MM DIG MAMM DX UNILAT RT CAD Digital Breast Tomosynthesis Included U/S minute CLINICAL INDICATION: 6 MONTH FOLLOW UP COMPARISON: MG [facility] MM Dig screening mamm BI w/CAD from 09/15/2017 MG MM DIG SCREENING MAMM BI W/CAD from 10/13/2019 MG MM DIG SCREENING MAMM BI W/CAD from 10/25/2020 MG MM DIG MAMM DX UNILAT RT CAD from 11/17/2020 US US BREAST RT COMPLETE from 11/17/2020 US US BREAST RT COMPLETE from 05/15/2021 TECHNIQUE: Standard CC and MLO images and 3D Tomosynthesis was obtained. R2 CAD reviewed. FINDINGS: The breasts are almost entirely fatty. There is a persistent asymmetric density in the medial aspect of the right breast which may actually represent a skin lesion or subcutaneous lesion. This is not significantly changed. There is scattered small fibroglandular elements noted. An additional nodule is now noted in the lower outer aspect of the right breast at the 8 o'clock region containing a few microcalcifications. This nodule measures approximately 5 by 4 mm and is ill-defined. Stereotactic biopsy suggested. This nodule is approximately 5 cm deep and 3 cm lateral to the nipple at the 8 o'clock region. Right breast ultrasound: 3 mm cyst at 3 o'clock. Small lipoma at 2 o'clock at 9 by 4 mm. IMPRESSION: Suspicious ill-defined nodule at 8 o'clock at 5 x 4 mm containing microcalcifications. Stereotactic biopsy suggested. The medial nodule is unchanged and felt to be benign. BI-RAD Category: 4 Suspicious Abnormality-Biopsy Considered FOLLOW-UP: BIO Biopsy Recommended (A letter has been sent to the patient regarding results of the study.) Dictated by: Dennys Maldonado MD 05/21/2021 10:13 Dennys Maldonado MD in [place] 05/21/2021 10:13
== END ==
PROVIDERS: PCP Internal Medicine Adolescent Medicine; Visit Provider Internal Medicine Adolescent Medicine
DX: R92.8 Other abnormal and inconclusive findings on diagnostic imaging of breast (principal)
CPT/HCPCS: 76641; 77061; 77065; G0279

== ENCOUNTER → 2021-05-22 12:09 | Outpatient (CLI) | payer MEDICARE, SELFPAY ==
[2021-05-22 12:33] LABS: Basophils # 0.1 K/mm3 (0-0.2); Basophils % 1.2 % (0.1-2.0); Eosinophils # 0.7 K/mm3 (0.0-0.4); Eosinophils % 5.9 % (0.1-12.0); Hematocrit 47.8 % (37.0-47.0); Hemoglobin 15.7 g/dL (12.2-16.2); Lymphocytes # 4.2 K/mm3 (0.7-4.5); Lymphocytes % 36.5 % (10-50); Mean Corpuscular HGB Conc 32.8 g/dL (31.8-35.4); Mean Corpuscular Hemoglobin 30.2 pg (27.0-31.2); Mean Corpuscular Volume 91.9 fl (81-99); Monocytes # 0.5 K/mm3 (0.1-1.0); Neutrophils % 52.4 % (37.0-80.0); Platelet Count 283 K/mm3 (142-424); Red Blood Count 5.21 M/mm3 (4.20-5.40); Red Cell Distribution Width 14.6 % (11.5-17.5); White Blood Count 11.4 K/mm3 (4.8-10.8)
[2021-05-22 14:25] LABS: Alanine Aminotransferase 43 U/L (12-78); Albumin Level 4.1 g/dl (3.5-5.0); Albumin/Globulin Ratio 1.2 (1.1-1.8); Alkaline Phosphatase 113 U/L (38-126); Anion Gap 12.8 mEq/L (5-15); Aspartate Amino Transferase 55 U/L (14-36); Bilirubin,Total 0.7 mg/dl (0.2-1.3); Blood Urea Nitrogen 10 mg/dl (7-17); Calcium 9.7 mg/dl (8.4-10.2); Carbon Dioxide 26 mmol/L (22.0-30.0); Chloride 103 mmol/L (98-107); Chol/HDL Ratio 2.9 (1-3.5); Cholesterol 112 mg/dl (140-200); Estimated Glomerular Filt Rate 123 ml/min (>60); GFR (African American) 149 ML/MIN (>60); Globulin 3.4 g/dL (1.3-3.2); Glucose 289 mg/dl (74-100); HDL Cholesterol 39 mg/dl (40-60); Potassium 4.8 mmoL/L (3.5-5.1); Sodium 137 mmol/L (136-145); Total Protein,Serum 7.5 g/dl (6.3-8.2); Triglycerides 111 mg/dl (30-150); VLDL Cholesterol 22 mg/dL (0-40)
[2021-05-22 14:36] LABS: Direct LDL Cholesterol 53.46 mg/dL (100-129)
[2021-05-22 14:59] LABS: Thyroid Stimulating Hormone 2.28 uIU/mL (0.465-4.68)
[2021-05-22 22:09] LABS: Hemoglobin A1C 11.2 % (4.0-6.0)
== END ==
PROVIDERS: Visit Provider Internal Medicine Adolescent Medicine
DX: E11.9 Type 2 diabetes mellitus without complications (principal); E03.9 Hypothyroidism, unspecified; Z79.4 Long term (current) use of insulin
CPT/HCPCS: 36415; 80053; 80061; 83036; 84443; 85025

== ENCOUNTER → 2021-06-12 09:26 | Outpatient (CLI) | payer MEDICARE, SELFPAY ==
--- NOTE | 2021-06-12 09:29 | MM_ITS ---
PROCEDURE: MM STEREOTACTIC LOC RT Mm clip placement Mm surgical specimen CLINICAL INDICATION: BREAST LUMP OR MASS Suspicious nodule at 8 o'clock. TECHNIQUE: Time-out procedure was performed and informed consent obtained The patient was given 1 mg of Xanax, Lortab 5 mg, and analgesia and minor sedation. The patient was placed on the stereotactic table and the abnormality was localized in the most appropriate projection. The breast was prepped in the routine manner, with sterile prep and the overlying skin anesthetized. A 3 to 4 mm skin incision was performed and the 9 gauge sorus vacuum-assisted core biopsy needle was advanced to the region of the calcification. Pre- and post fire images were obtained. After adequate positioning relative to the calcifications was ensured, multiple biopsies were obtained in the region of the calcifications specifically. The nodule of concern contains at least 2 small calcifications which were targeted for the biopsy. The core biopsies obtained were sent for specimen mammography. After the calcifications were indeed identified on the specimen mammogram, the procedure was terminated. A tiny titanium nonferromagnetic MicroMark was positioned through the mammotome needle into the biopsy site. PATHOLOGY: Proliferative fibrocystic change including florid epithelial hyperplasia, sclerosing adenosis, apron metaplasia, benign sclerosing lesion. Microcalcifications. Negative for DCIS and malignancy IMPRESSION: 1. Successful stereotactic vacuum-assisted core biopsy of the breast calcifications showing benign findings. 2. Successful placement of a titanium metal MicroMark. 3. No noted complications. SPECIMEN RADIOGRAPH: The mammographically evident calcifications from the prior study are currently evident within the Magda dish and within the specimens obtained during mammotome procedure. This is considered an adequate specimen and the procedure was terminated. IMPRESSION: Successful removal of described breast calcifications. BREAST MAMMOGRAM: Compared to the prior study, the previously noted calcification have been removed. A small MicroMark clip was inserted into the region of the calcifications at 8 o'clock region the. The clip may be slightly more medial than the nodule location.. There is evidence of soft tissue changes in the region of the biopsy was soft tissue gas and edema. 4. The clip may be slightly more medial than the original nodule however this is difficult to ascertain due to slight breast rotation. The calcifications and nodule appear to been removed. 5. Postbiopsy changes within the breast. 6. Recommend right mammogram in 6 months per routine protocol Dictated by: Dennys Maldonado MD 06/21/2021 18:15 Dennys Maldonado MD in [place] 06/21/2021 18:15
== END ==
PROVIDERS: PCP Internal Medicine Adolescent Medicine; Visit Provider Internal Medicine Adolescent Medicine
DX: R92.8 Other abnormal and inconclusive findings on diagnostic imaging of breast (principal); N63.10 Unspecified lump in the right breast, unspecified quadrant
CPT/HCPCS: 19081; 76098; 77065; 88305

== ENCOUNTER 2021-07-12 09:04 | Outpatient (CLI) | payer MEDICARE, SELFPAY ==
[2021-07-12] VITALS (7 sets, daily range): BP systolic 108–143; BP diastolic 54–70; PULSE 73–76; RESP 16; TEMP 36.8–37; O2SAT 95–98
--- NOTE | 2021-07-12 11:29 | PC.NURSE ---
Dr. Leyva requested this patient be done prophylactically.
== END 2021-07-12 11:35 | disposition home or self-care (01) ==
PROVIDERS: PCP Internal Medicine Adolescent Medicine; Visit Provider Internal Medicine Adolescent Medicine
DX: U07.1 COVID-19 (principal); Z23 Encounter for immunization
CPT/HCPCS: 96365

== ENCOUNTER → 2021-07-25 09:23 | Outpatient (CLI) | payer MEDICARE, SELFPAY ==
[2021-07-25 10:21] LABS: Basophils # 0.1 K/mm3 (0-0.2); Eosinophils # 0.6 K/mm3 (0.0-0.4); Eosinophils % 6.1 % (0.1-12.0); Hematocrit 44.1 % (37.0-47.0); Hemoglobin 14.9 g/dL (12.2-16.2); Lymphocytes # 3.4 K/mm3 (0.7-4.5); Lymphocytes % 35.7 % (10-50); Mean Corpuscular HGB Conc 33.9 g/dL (31.8-35.4); Mean Corpuscular Hemoglobin 29.5 pg (27.0-31.2); Mean Corpuscular Volume 87.3 fl (81-99); Mean Platelet Volume 8.8 fl (7.4-10.4); Monocytes # 0.5 K/mm3 (0.1-1.0); Monocytes % 5.5 % (1.7-9.3); Neutrophils # 4.9 K/mm3 (1.8-7.8); Neutrophils % 51.6 % (37.0-80.0); Platelet Count 384 K/mm3 (142-424); Red Blood Count 5.05 M/mm3 (4.20-5.40); Red Cell Distribution Width 15.3 % (11.5-17.5); White Blood Count 9.4 K/mm3 (4.8-10.8)
[2021-07-25 10:46] LABS: Chloride 105 mmol/L (98-107); Potassium 4.6 mmoL/L (3.5-5.1); Sodium 141 mmol/L (136-145)
[2021-07-25 10:48] LABS: Alanine Aminotransferase 42 U/L (12-78); Alkaline Phosphatase 92 U/L (38-126); Anion Gap 14.6 mEq/L (5-15); Aspartate Amino Transferase 54 U/L (14-36); Bilirubin,Total 0.8 mg/dl (0.2-1.3); Blood Urea Nitrogen 12 mg/dl (7-17); Carbon Dioxide 26 mmol/L (22.0-30.0); Estimated Glomerular Filt Rate 100 ml/min (>60); GFR (African American) 121 ML/MIN (>60)
[2021-07-25 10:49] LABS: Albumin/Globulin Ratio 1.3 (1.1-1.8); Calcium 9.4 mg/dl (8.4-10.2); Globulin 3.1 g/dL (1.3-3.2); Glucose 208 mg/dl (74-100); Total Protein,Serum 7.1 g/dl (6.3-8.2)
[2021-07-25 13:24] LABS: Erythrocyte Sedimentation Rate 32 mm/hr (0-30)
== END ==
PROVIDERS: Visit Provider Internal Medicine
DX: D89.9 Disorder involving the immune mechanism, unspecified (principal); M15.9 Polyosteoarthritis, unspecified; M45.9 Ankylosing spondylitis of unspecified sites in spine; M79.7 Fibromyalgia
CPT/HCPCS: 36415; 80053; 85025; 85651; 86140

== ENCOUNTER → 2021-10-31 11:22 | Outpatient (CLI) | payer MEDICARE, SELFPAY ==
--- NOTE | 2021-10-31 11:29 | XR_ITS ---
FINAL REPORT CLINICAL HISTORY: ULCER OF LT FOOT FINDINGS: 3 views of the right foot were obtained. There is no acute fracture or dislocation. The joint spaces are intact. There is a moderate plantar spur. There is an os perineum. The soft tissues are unremarkable. IMPRESSION: No acute process. Reviewed, Interpreted and Dictated by Carlos Craven MD Transcribed by Josse Diallo Authenticated by Carlos Craven MD on 10/31/2021 02:03:56 PM [facility]
== END ==
PROVIDERS: PCP Internal Medicine Adolescent Medicine; Visit Provider Internal Medicine Adolescent Medicine
DX: L97.522 Non-pressure chronic ulcer of other part of left foot with fat layer exposed (principal); L97.512 Non-pressure chronic ulcer of other part of right foot with fat layer exposed
CPT/HCPCS: 73630

== ENCOUNTER → 2021-11-05 09:26 | Outpatient (CLI) | payer MEDICARE, SELFPAY ==
[2021-11-05 09:55] LABS: Basophils # 0.1 K/mm3 (0-0.2); Basophils % 1.5 % (0.1-2.0); Eosinophils % 10.1 % (0.1-12.0); Hematocrit 44.2 % (37.0-47.0); Hemoglobin 14.4 g/dL (12.2-16.2); Lymphocytes # 3.1 K/mm3 (0.7-4.5); Lymphocytes % 32.8 % (10-50); Mean Corpuscular HGB Conc 32.7 g/dL (31.8-35.4); Mean Corpuscular Hemoglobin 30.2 pg (27.0-31.2); Mean Corpuscular Volume 92.3 fl (81-99); Monocytes # 0.4 K/mm3 (0.1-1.0); Monocytes % 4.3 % (1.7-9.3); Neutrophils # 4.9 K/mm3 (1.8-7.8); Neutrophils % 51.3 % (37.0-80.0); Platelet Count 274 K/mm3 (142-424); Red Blood Count 4.79 M/mm3 (4.20-5.40); Red Cell Distribution Width 15.2 % (11.5-17.5); White Blood Count 9.5 K/mm3 (4.8-10.8)
[2021-11-05 10:20] LABS: Erythrocyte Sedimentation Rate 25 mm/hr (0-30)
[2021-11-05 21:51] LABS: Chloride 106 mmol/L (98-107); Potassium 4.5 mmoL/L (3.5-5.1); Sodium 137 mmol/L (136-145)
[2021-11-05 21:54] LABS: Alanine Aminotransferase 40 U/L (12-78); Albumin Level 3.8 g/dl (3.5-5.0); Albumin/Globulin Ratio 1.3 (1.1-1.8); Alkaline Phosphatase 85 U/L (38-126); Anion Gap 11.5 mEq/L (5-15); Aspartate Amino Transferase 54 U/L (14-36); Bilirubin,Total 0.6 mg/dl (0.2-1.3); Blood Urea Nitrogen 12 mg/dl (7-17); Calcium 8.6 mg/dl (8.4-10.2); Carbon Dioxide 24 mmol/L (22.0-30.0); Estimated Glomerular Filt Rate 100 ml/min (>60); GFR (African American) 121 ML/MIN (>60); Glucose 245 mg/dl (74-100); Total Protein,Serum 6.8 g/dl (6.3-8.2)
[2021-11-05 22:00] LABS: C-Reactive Protein 4.1 mg/L (0-4)
== END ==
PROVIDERS: Visit Provider Nurse Practitioner Family
DX: E03.9 Hypothyroidism, unspecified (principal); Z51.89 Encounter for other specified aftercare
CPT/HCPCS: 80053; 85025; 85651; 86140

== ENCOUNTER → 2021-12-06 15:02 | Outpatient (CLI) | payer MEDICARE, SELFPAY ==
--- NOTE | 2021-12-06 15:05 | MM_ITS ---
PROCEDURE INFORMATION: Exam: MG Bilateral Screening 3D Mammography Exam date and time: 12/06/2021 3:07 PM Age: 66 years old Clinical indication: Screening examination TECHNIQUE: Imaging protocol: Bilateral Screening tomosynthesis and 2D mammography including computer-aided detection (CAD) when performed. COMPARISON: 1. MG MM CLIP PLACEMENT RT 06/12/2021 11:36 AM 2. MG MM SURGICAL SPECIMEN RT 06/12/2021 11:09 AM FINDINGS: MAMMOGRAPHY: Breast composition: There are scattered areas of fibroglandular density. Mass: None. Architectural distortion: None. Calcifications: No suspicious calcifications. Asymmetric density: None. Skin thickening: None. Axillary adenopathy: None. IMPRESSION: No mammographic evidence of malignancy. Annual screening is recommended unless otherwise clinically indicated. ASSESSMENT: BI-RADS Category 1: Negative
== END ==
PROVIDERS: PCP Internal Medicine Adolescent Medicine; Visit Provider Internal Medicine Adolescent Medicine
DX: Z12.31 Encounter for screening mammogram for malignant neoplasm of breast (principal)
CPT/HCPCS: 77063; 77067

== ENCOUNTER → 2021-12-18 12:58 | Outpatient (CLI) | payer MEDICARE, SELFPAY ==
[2021-12-18 14:19] LABS: Basophils # 0.1 K/mm3 (0-0.2); Basophils % 1.5 % (0.1-2.0); Eosinophils # 0.8 K/mm3 (0.0-0.4); Eosinophils % 9.2 % (0.1-12.0); Hemoglobin 14.4 g/dL (12.2-16.2); Lymphocytes # 3.2 K/mm3 (0.7-4.5); Lymphocytes % 38.3 % (10-50); Mean Corpuscular HGB Conc 33.5 g/dL (31.8-35.4); Mean Corpuscular Hemoglobin 30.9 pg (27.0-31.2); Mean Corpuscular Volume 92.3 fl (81-99); Mean Platelet Volume 8.6 fl (7.4-10.4); Monocytes # 0.4 K/mm3 (0.1-1.0); Monocytes % 4.9 % (1.7-9.3); Neutrophils # 3.9 K/mm3 (1.8-7.8); Platelet Count 243 K/mm3 (142-424); Red Blood Count 4.65 M/mm3 (4.20-5.40); Red Cell Distribution Width 15.4 % (11.5-17.5); White Blood Count 8.4 K/mm3 (4.8-10.8)
[2021-12-18 14:22] LABS: Chloride 104 mmol/L (98-107); Potassium 4.4 mmoL/L (3.5-5.1); Sodium 138 mmol/L (136-145)
[2021-12-18 14:25] LABS: Albumin Level 3.5 g/dl (3.5-5.0); Albumin/Globulin Ratio 1.2 (1.1-1.8); Globulin 2.9 g/dL (1.3-3.2); Total Protein,Serum 6.4 g/dl (6.3-8.2)
[2021-12-18 14:28] LABS: Alanine Aminotransferase 41 U/L (12-78); Alkaline Phosphatase 97 U/L (38-126); Anion Gap 11.4 mEq/L (5-15); Aspartate Amino Transferase 51 U/L (14-36); Bilirubin,Total 0.9 mg/dl (0.2-1.3); Blood Urea Nitrogen 10 mg/dl (7-17); Calcium 9.4 mg/dl (8.4-10.2); Carbon Dioxide 27 mmol/L (22.0-30.0); Estimated Glomerular Filt Rate 123 ml/min (>60); GFR (African American) 149 ML/MIN (>60); Glucose 201 mg/dl (74-100)
[2021-12-18 14:31] LABS: C-Reactive Protein 3.6 mg/L (0-4)
[2021-12-18 15:37] LABS: Erythrocyte Sedimentation Rate 22 mm/hr (0-30)
[2021-12-20 20:10] LABS: QuantiFERON-TB Gold Plus Negative (Negative)
[2022-01-05 17:45] LABS: Hep A Ab, IgM NEGATIVE; Hepatitis B Core Antibody IgM NEGATIVE; Hepatitis B Surface Antigen NEGATIVE; Hepatitis C Antibody 0.1
== END ==
PROVIDERS: Nurse Practitioner Family; PCP Internal Medicine Adolescent Medicine; Visit Provider Internal Medicine
DX: D89.9 Disorder involving the immune mechanism, unspecified (principal); M45.9 Ankylosing spondylitis of unspecified sites in spine; R53.83 Other fatigue
CPT/HCPCS: 36415; 80053; 80074; 85025; 85651; 86140; 86480

== ENCOUNTER → 2022-02-13 09:53 | Outpatient (CLI) | payer MEDICARE, SELFPAY ==
[2022-02-13 10:27] LABS: Basophils # 0.3 K/mm3 (0-0.2); Basophils % 2.4 % (0.1-2.0); Eosinophils # 0.7 K/mm3 (0.0-0.4); Eosinophils % 6.6 % (0.1-12.0); Hematocrit 44.9 % (37.0-47.0); Hemoglobin 13.8 g/dL (12.2-16.2); Lymphocytes # 2.9 K/mm3 (0.7-4.5); Lymphocytes % 29.4 % (10-50); Mean Corpuscular HGB Conc 30.7 g/dL (31.8-35.4); Mean Corpuscular Hemoglobin 28.9 pg (27.0-31.2); Mean Corpuscular Volume 94.2 fl (81-99); Mean Platelet Volume 8.8 fl (7.4-10.4); Monocytes # 0.6 K/mm3 (0.1-1.0); Monocytes % 6.3 % (1.7-9.3); Neutrophils # 5.5 K/mm3 (1.8-7.8); Neutrophils % 55.3 % (37.0-80.0); Platelet Count 263 K/mm3 (142-424); Red Blood Count 4.76 M/mm3 (4.20-5.40); Red Cell Distribution Width 15.3 % (11.5-17.5)
[2022-02-13 11:04] LABS: Alanine Aminotransferase 40 U/L (12-78); Albumin Level 3.8 g/dl (3.5-5.0); Albumin/Globulin Ratio 1.2 (1.1-1.8); Alkaline Phosphatase 92 U/L (38-126); Anion Gap 10.5 mEq/L (5-15); Aspartate Amino Transferase 56 U/L (14-36); Bilirubin,Total 0.5 mg/dl (0.2-1.3); Blood Urea Nitrogen 14 mg/dl (7-17); Calcium 9.4 mg/dl (8.4-10.2); Carbon Dioxide 29 mmol/L (22.0-30.0); Chloride 103 mmol/L (98-107); Estimated Glomerular Filt Rate 83 ml/min (>60); GFR (African American) 101 ML/MIN (>60); Globulin 3.1 g/dL (1.3-3.2); Glucose 235 mg/dl (74-100); Potassium 4.5 mmoL/L (3.5-5.1); Sodium 138 mmol/L (136-145); Total Protein,Serum 6.9 g/dl (6.3-8.2)
[2022-02-13 11:32] LABS: Thyroid Stimulating Hormone 2.05 uIU/mL (0.465-4.68)
[2022-02-13 12:08] LABS: Hemoglobin A1C 7.8 % (4.0-6.0)
== END ==
PROVIDERS: PCP Internal Medicine Adolescent Medicine; Visit Provider Nurse Practitioner Family
DX: E11.42 Type 2 diabetes mellitus with diabetic polyneuropathy (principal); R21 Rash and other nonspecific skin eruption; E03.9 Hypothyroidism, unspecified; Z79.4 Long term (current) use of insulin
CPT/HCPCS: 36415; 80053; 83036; 84443; 85025

== ENCOUNTER → 2022-05-30 13:53 | Outpatient (CLI) | payer MEDICARE, SELFPAY ==
[2022-05-30 15:50] LABS: Basophils # 0.1 K/mm3 (0-0.2); Basophils % 1.3 % (0.1-2.0); Eosinophils # 0.5 K/mm3 (0.0-0.4); Eosinophils % 5.7 % (0.1-12.0); Hematocrit 42.6 % (37.0-47.0); Hemoglobin 13.6 g/dL (12.2-16.2); Lymphocytes # 3.3 K/mm3 (0.7-4.5); Lymphocytes % 35.7 % (10-50); Mean Corpuscular HGB Conc 31.9 g/dL (31.8-35.4); Mean Corpuscular Hemoglobin 29.2 pg (27.0-31.2); Mean Corpuscular Volume 91.7 fl (81-99); Mean Platelet Volume 9.8 fl (7.4-10.4); Monocytes # 0.5 K/mm3 (0.1-1.0); Monocytes % 5.4 % (1.7-9.3); Neutrophils # 4.8 K/mm3 (1.8-7.8); Platelet Count 286 K/mm3 (142-424); Red Blood Count 4.65 M/mm3 (4.20-5.40); Red Cell Distribution Width 15.1 % (11.5-17.5); White Blood Count 9.3 K/mm3 (4.8-10.8)
[2022-05-30 16:16] LABS: Hemoglobin A1C 7.3 % (4.0-6.0)
[2022-05-30 16:59] LABS: Alanine Aminotransferase 45 U/L (12-78); Albumin Level 3.8 g/dl (3.5-5.0); Albumin/Globulin Ratio 1.3 (1.1-1.8); Alkaline Phosphatase 113 U/L (38-126); Anion Gap 18.6 mEq/L (5-15); Aspartate Amino Transferase 68 U/L (14-36); Bilirubin,Total 0.7 mg/dl (0.2-1.3); Blood Urea Nitrogen 14 mg/dl (7-17); Calcium 8.9 mg/dl (8.4-10.2); Carbon Dioxide 26 mmol/L (22.0-30.0); Chloride 101 mmol/L (98-107); Cholesterol 90 mg/dl (140-200); Estimated Glomerular Filt Rate 100 ml/min (>60); GFR (African American) 121 ML/MIN (>60); Glucose 199 mg/dl (74-100); HDL Cholesterol 30 mg/dl (40-60); Potassium 4.6 mmoL/L (3.5-5.1); Sodium 141 mmol/L (136-145); Total Protein,Serum 6.8 g/dl (6.3-8.2); Triglycerides 90 mg/dl (30-150); VLDL Cholesterol 18 mg/dL (0-40)
[2022-05-30 17:11] LABS: Direct LDL Cholesterol 44.82 mg/dL (100-129)
[2022-05-30 17:17] LABS: 25-OH Vitamin D, Total 47.1 ng/mL (30-100)
[2022-05-30 17:30] LABS: Thyroid Stimulating Hormone 1.37 uIU/mL (0.465-4.68)
[2022-05-30 18:07] LABS: Vitamin B12 > 1000 pg/mL (239-931)
== END ==
PROVIDERS: PCP Internal Medicine Adolescent Medicine; Visit Provider Internal Medicine Adolescent Medicine
DX: E11.42 Type 2 diabetes mellitus with diabetic polyneuropathy (principal); E03.9 Hypothyroidism, unspecified; M85.88 Other specified disorders of bone density and structure, other site
CPT/HCPCS: 36415; 80053; 80061; 82306; 82607; 83036; 84443; 85025

== ENCOUNTER → 2022-06-14 13:18 | Outpatient (CLI) | payer MEDICARE, SELFPAY ==
[2022-06-14 15:03] LABS: Basophils # 0.1 K/mm3 (0-0.2); Eosinophils # 0.4 K/mm3 (0.0-0.4); Eosinophils % 5.1 % (0.1-12.0); Hematocrit 46.3 % (37.0-47.0); Hemoglobin 14.5 g/dL (12.2-16.2); Lymphocytes # 2.8 K/mm3 (0.7-4.5); Lymphocytes % 34.8 % (10-50); Mean Corpuscular HGB Conc 31.2 g/dL (31.8-35.4); Mean Corpuscular Hemoglobin 29.5 pg (27.0-31.2); Mean Corpuscular Volume 94.4 fl (81-99); Mean Platelet Volume 9.6 fl (7.4-10.4); Monocytes # 0.4 K/mm3 (0.1-1.0); Neutrophils # 4.3 K/mm3 (1.8-7.8); Platelet Count 257 K/mm3 (142-424); Red Blood Count 4.91 M/mm3 (4.20-5.40); Red Cell Distribution Width 15.2 % (11.5-17.5); White Blood Count 7.9 K/mm3 (4.8-10.8)
[2022-06-14 15:26] LABS: Alanine Aminotransferase 35 U/L (12-78); Albumin Level 3.9 g/dl (3.5-5.0); Albumin/Globulin Ratio 1.3 (1.1-1.8); Alkaline Phosphatase 107 U/L (38-126); Anion Gap 15.8 mEq/L (5-15); Aspartate Amino Transferase 45 U/L (14-36); Bilirubin,Total 0.7 mg/dl (0.2-1.3); Blood Urea Nitrogen 10 mg/dl (7-17); Calcium 9.7 mg/dl (8.4-10.2); Carbon Dioxide 31 mmol/L (22.0-30.0); Chloride 99 mmol/L (98-107); Estimated Glomerular Filt Rate 100 ml/min (>60); GFR (African American) 121 ML/MIN (>60); Globulin 2.9 g/dL (1.3-3.2); Glucose 155 mg/dl (74-100); Potassium 4.8 mmoL/L (3.5-5.1); Sodium 141 mmol/L (136-145); Total Protein,Serum 6.8 g/dl (6.3-8.2)
[2022-06-14 15:32] LABS: C-Reactive Protein 7.2 mg/L (0-4)
[2022-06-14 19:19] LABS: Erythrocyte Sedimentation Rate 17 mm/hr (0-30)
== END ==
PROVIDERS: PCP Internal Medicine Adolescent Medicine; Visit Provider Nurse Practitioner Family
DX: D89.9 Disorder involving the immune mechanism, unspecified (principal); M45.9 Ankylosing spondylitis of unspecified sites in spine
CPT/HCPCS: 36415; 80053; 85025; 85651; 86140

== ENCOUNTER 2022-08-16 08:20 | Day surgery (SDC) | payer MEDICARE, SELFPAY ==
[2022-08-09 11:57] VITALS: BMI 45.7
[2022-08-16 09:14] VITALS: BP 159/76; PULSE 87; RESP 18; TEMP 36.8; O2SAT 98
[2022-08-16 09:34] LABS: POC Glucose,Bedside 160 (70-110)
[2022-08-16 10:00] VITALS: O2SAT 98
--- NOTE | 2022-08-16 10:02 | P.PN_ITS ---
[facility] Disclaimer: The information contained in this section may have been updated after the patient was seen, as this information can be updated by other users. Medical History Chronic kidney disease Diabetes mellitus, type 2 Endometriosis Fibromyalgia History of anemia History of COVID-19 History of diverticulitis History of gastroesophageal reflux (GERD) History of stroke Hyperlipidemia Hypertension Hypothyroid Irritable bowel syndrome (IBS) Kidney stone Osteoarthritis Pelvic inflammatory disease (PID) Pneumonia Urinary tract infection Surgical History H/O colonoscopy H/O shoulder surgery H/O thyroidectomy History of cholecystectomy History of hysterectomy History of tonsillectomy Family History Father Throat cancer Family history of abdominal aortic aneurysm Mother Pancreatic cancer Family history of diabetes mellitus type II Family history of stroke Grandfather Family history of myocardial infarction Social History Smoking Status: Never smoker alcohol intake: never substance use type: denies use current occupational status: disabled Travel in the last 8 weeks: None household members: spouse housing: house caffeine: Yes (daily) [facility] Anesthesia Checklist Patient Identification Patient Identification: Verbal (Name & ) Structural Data Admitted From: Home Planned Operative Procedure/s: colonoscopy Consent for Planned Operative Procedure(s) Verified: Yes Additional verifications Anesthesia Reactions: No Airway Assessment C-Spine Mobility Assessed: Yes TMJ Mobility Assessed: Yes Dentition: Good Dentition Neurological Assessment Level of Consciousness: Awake, Alert and Appropriate Anesthesia Plan Anesthesia Risk discussed: Yes Anesthesia Plan: Verified ASA Class: III Anesthesia Type: MAC
[2022-08-16 10:49] VITALS: BP 128/65; PULSE 83; RESP 16; TEMP 36.1; O2SAT 92
--- NOTE | 2022-08-16 10:49 | HMH.SCOPE ---
Procedure: Date: 08/16/22 Patient Date of :: 1955 Procedure Performed:: Total colonoscopy to terminal ileum Indications:: Patient is a 66-year-old female with multiple medical problems, numerous drug allergies whom I had performed upper endoscopy on in December 2018 to evaluate for microcytic anemia. She did have a colonoscopy following that which revealed rare diverticuli and 4 tubular adenomas. Recommendation was for repeat colonoscopy in 3 years. She has had previous colonoscopies by Dr. Edmond in 1996, 2004, and 2005. Performing Provider:: Jake Enrique MD Referring Provider:: Ezra Leyva Sedation:: MAC sedation Procedure:: Patient history was obtained and appropriate physical examination was performed. Patient's medications and allergies were reviewed. Informed consent was obtained after explaining the benefits, alternatives, and risks of the procedure including, but not limited to, bleeding, perforation, missed lesions, and adverse reaction to anesthesia medications. Patient was transported to endoscopy procedure room. Patient was connected to monitoring devices. Throughout the procedure the patient's blood pressure, pulse, and oxygen saturations were monitored continuously. Patient identification and planned procedure were verified by the staff. Patient was positioned in lateral decubitus position. Digital anorectal exam was performed. Variable stiffness Olympus colonoscope was inserted and advanced under direct visualization to the cecum. Adequacy of the colonic preparation was noted. The colonoscope was advanced a short distance into the terminal ileum. The colonoscope was then slowly withdrawn while carefully examining the color, texture, anatomy, and integrity of the mucosoa circumferentially. Within the rectum retroflexion was performed. Colonoscope was then withdrawn. Findings:: Colonic preparation was fair at best. There was thick mucousy stool which was unable to be fully cleared despite thorough irrigation and suctioning. There were no obvious large polyps or masses. Recommendations:: Recommend repeat colonoscopy in 2 to 3 years with multi day maximum prep Complications:: None immediately apparent Estimated blood obtained (mL): 0
[2022-08-16 10:59] VITALS: BP 139/76; PULSE 77; RESP 16; TEMP 36.1; O2SAT 99
[2022-08-16 11:09] VITALS: BP 167/66; PULSE 73; RESP 18; TEMP 36.1; O2SAT 98
[2022-08-16 11:22] VITALS: BP 135/63; PULSE 63; RESP 18; TEMP 36.1; O2SAT 98
== END 2022-08-16 11:22 | disposition home or self-care (01) ==
PROVIDERS: PCP Internal Medicine Adolescent Medicine; Visit Provider Surgery
PROC: 0DJD8ZZ Inspection of Lower Intestinal Tract, Via Natural or Artificial Opening Endoscopic (ICD-10-PCS; principal; 2022-08-16 09:30)
DX: Z12.11 Encounter for screening for malignant neoplasm of colon (principal); Z86.010 Personal history of colon polyps; Z79.899 Other long term (current) drug therapy; E11.9 Type 2 diabetes mellitus without complications
CPT/HCPCS: G0105; 82962

== ENCOUNTER → 2022-12-04 08:53 | Outpatient (CLI) | payer MEDICARE, SELFPAY ==
[2022-12-04 09:30] LABS: Basophils # 0.1 K/mm3 (0-0.2); Basophils % 0.8 % (0.1-2.0); Eosinophils # 0.5 K/mm3 (0.0-0.4); Eosinophils % 5.8 % (0.1-12.0); Hemoglobin 15.1 g/dL (12.2-16.2); Lymphocytes # 3.9 K/mm3 (0.7-4.5); Lymphocytes % 41.5 % (10-50); Mean Corpuscular HGB Conc 32.8 g/dL (31.8-35.4); Mean Corpuscular Hemoglobin 30.3 pg (27.0-31.2); Mean Corpuscular Volume 92.4 fl (81-99); Mean Platelet Volume 9.4 fl (7.4-10.4); Monocytes # 0.5 K/mm3 (0.1-1.0); Monocytes % 5.3 % (1.7-9.3); Neutrophils # 4.4 K/mm3 (1.8-7.8); Neutrophils % 46.6 % (37.0-80.0); Platelet Count 239 K/mm3 (142-424); Red Blood Count 4.98 M/mm3 (4.20-5.40); White Blood Count 9.4 K/mm3 (4.8-10.8)
[2022-12-04 09:39] LABS: Chloride 103 mmol/L (98-107); Potassium 4.1 mmoL/L (3.5-5.1); Sodium 139 mmol/L (136-145)
[2022-12-04 09:41] LABS: Blood Urea Nitrogen 13 mg/dl (7-17); Estimated Glomerular Filt Rate 99 ml/min (>60); GFR (African American) 120 ML/MIN (>60)
[2022-12-04 09:42] LABS: Alanine Aminotransferase 45 U/L (12-78); Albumin Level 3.9 g/dl (3.5-5.0); Albumin/Globulin Ratio 1.3 (1.1-1.8); Alkaline Phosphatase 81 U/L (38-126); Anion Gap 14.1 mEq/L (5-15); Aspartate Amino Transferase 53 U/L (14-36); Bilirubin,Total 0.7 mg/dl (0.2-1.3); Calcium 9.2 mg/dl (8.4-10.2); Carbon Dioxide 26 mmol/L (22.0-30.0); Chol/HDL Ratio 2.9 (1-3.5); Cholesterol 99 mg/dl (140-200); Globulin 3.1 g/dL (1.3-3.2); Glucose 165 mg/dl (74-100); HDL Cholesterol 34 mg/dl (40-60); Triglycerides 100 mg/dl (30-150); VLDL Cholesterol 20 mg/dL (0-40)
[2022-12-04 09:54] LABS: Direct LDL Cholesterol 53.18 mg/dL (100-129)
[2022-12-04 10:16] LABS: Thyroid Stimulating Hormone 2.71 uIU/mL (0.465-4.68)
[2022-12-04 11:34] LABS: Hemoglobin A1C 7.5 % (4.0-6.0)
[2022-12-04 13:20] LABS: 25-OH Vitamin D, Total 48.2 ng/mL (30-100)
[2022-12-04 13:50] LABS: Vitamin B12 712 pg/mL (239-931)
== END ==
PROVIDERS: PCP Internal Medicine Adolescent Medicine; Visit Provider Internal Medicine Adolescent Medicine
DX: E11.42 Type 2 diabetes mellitus with diabetic polyneuropathy (principal); I10 Essential (primary) hypertension; E66.9 Obesity, unspecified; Z68.41 Body mass index [BMI] 40.0-44.9, adult; Z79.4 Long term (current) use of insulin
CPT/HCPCS: 36415; 80053; 80061; 82306; 82607; 83036; 84443; 85025

== ENCOUNTER → 2022-12-10 16:11 | Outpatient (CLI) | payer MEDICARE, SELFPAY ==
--- NOTE | 2022-12-10 16:15 | MM_ITS ---
PROCEDURE INFORMATION: Exam: MG Bilateral Screening 3D Mammography Exam date and time: 12/10/2022 4:08 PM Age: 67 years old Clinical indication: Screening examination TECHNIQUE: Imaging protocol: Bilateral Screening tomosynthesis and 2D mammography including computer-aided detection (CAD) when performed. COMPARISON: 1. MG MM DIG SCREENING MAMM BI W/CAD 12/06/2021 3:07 PM 2. MG MM CLIP PLACEMENT RT 06/12/2021 11:36 AM FINDINGS: MAMMOGRAPHY: Breast composition: There are scattered areas of fibroglandular density. Mass: None. Architectural distortion: None. Calcifications: No suspicious calcifications. Asymmetric density: None. Skin thickening: None. Axillary adenopathy: None. IMPRESSION: No mammographic evidence of malignancy. Annual screening is recommended unless otherwise clinically indicated. ASSESSMENT: BI-RADS Category 1: Negative
== END ==
PROVIDERS: PCP Internal Medicine Adolescent Medicine; Visit Provider Internal Medicine Adolescent Medicine
DX: Z12.31 Encounter for screening mammogram for malignant neoplasm of breast (principal)
CPT/HCPCS: 77063; 77067

== ENCOUNTER → 2022-12-11 12:30 | Outpatient (CLI) | payer MEDICARE, SELFPAY ==
[2022-12-11 14:04] LABS: Chloride 98 mmol/L (98-107); Potassium 4.5 mmoL/L (3.5-5.1); Sodium 138 mmol/L (136-145)
[2022-12-11 14:06] LABS: Blood Urea Nitrogen 15 mg/dl (7-17)
[2022-12-11 14:07] LABS: Alanine Aminotransferase 46 U/L (12-78); Albumin Level 3.8 g/dl (3.5-5.0); Albumin/Globulin Ratio 1.3 (1.1-1.8); Alkaline Phosphatase 81 U/L (38-126); Anion Gap 17.5 mEq/L (5-15); Aspartate Amino Transferase 63 U/L (14-36); Bilirubin,Total 0.7 mg/dl (0.2-1.3); Carbon Dioxide 27 mmol/L (22.0-30.0); Estimated Glomerular Filt Rate 99 ml/min (>60); GFR (African American) 120 ML/MIN (>60); Globulin 2.9 g/dL (1.3-3.2); Glucose 189 mg/dl (74-100); Total Protein,Serum 6.7 g/dl (6.3-8.2)
[2022-12-11 14:13] LABS: C-Reactive Protein 6.5 mg/L (0-4)
[2022-12-11 14:59] LABS: Basophils # 0.1 K/mm3 (0-0.2); Basophils % 0.9 % (0.1-2.0); Eosinophils # 0.4 K/mm3 (0.0-0.4); Eosinophils % 4.8 % (0.1-12.0); Hematocrit 44.5 % (37.0-47.0); Hemoglobin 14.2 g/dL (12.2-16.2); Lymphocytes # 2.8 K/mm3 (0.7-4.5); Lymphocytes % 35.5 % (10-50); Mean Corpuscular HGB Conc 31.9 g/dL (31.8-35.4); Mean Corpuscular Hemoglobin 30.2 pg (27.0-31.2); Mean Corpuscular Volume 94.5 fl (81-99); Mean Platelet Volume 8.9 fl (7.4-10.4); Monocytes # 0.5 K/mm3 (0.1-1.0); Monocytes % 6.1 % (1.7-9.3); Neutrophils # 4.2 K/mm3 (1.8-7.8); Neutrophils % 52.7 % (37.0-80.0); Platelet Count 240 K/mm3 (142-424); Red Blood Count 4.71 M/mm3 (4.20-5.40); Red Cell Distribution Width 14.6 % (11.5-17.5); White Blood Count 7.9 K/mm3 (4.8-10.8)
[2022-12-11 15:38] LABS: Erythrocyte Sedimentation Rate 15 mm/hr (0-30)
== END ==
PROVIDERS: PCP Internal Medicine Adolescent Medicine; Visit Provider Internal Medicine
DX: D89.9 Disorder involving the immune mechanism, unspecified (principal); M15.9 Polyosteoarthritis, unspecified; M45.9 Ankylosing spondylitis of unspecified sites in spine; M79.7 Fibromyalgia
CPT/HCPCS: 36415; 80053; 85025; 85651; 86140

== ENCOUNTER → 2023-03-14 08:49 | Outpatient (CLI) | payer MEDICARE, SELFPAY ==
[2023-03-14 10:11] LABS: Chloride 105 mmol/L (98-107); Sodium 141 mmol/L (136-145)
[2023-03-14 10:14] LABS: Blood Urea Nitrogen 9 mg/dl (7-17); Estimated Glomerular Filt Rate 123 ml/min (>60); GFR (African American) 148 ML/MIN (>60)
[2023-03-14 10:15] LABS: Calcium 9.2 mg/dl (8.4-10.2); Carbon Dioxide 26 mmol/L (22.0-30.0); Glucose 206 mg/dl (74-100)
== END ==
PROVIDERS: PCP Internal Medicine Adolescent Medicine; Visit Provider Internal Medicine Adolescent Medicine
DX: E11.9 Type 2 diabetes mellitus without complications (principal); Z79.4 Long term (current) use of insulin
CPT/HCPCS: 36415; 80048; 83036

== ENCOUNTER → 2023-06-17 09:50 | Outpatient (CLI) | payer MEDICARE, SELFPAY ==
[2023-06-17 10:57] LABS: Basophils # 0.1 K/mm3 (0-0.2); Eosinophils # 0.6 K/mm3 (0.0-0.4); Eosinophils % 5.7 % (0.1-12.0); Hematocrit 43.6 % (37.0-47.0); Hemoglobin 14.7 g/dL (12.2-16.2); Lymphocytes # 2.8 K/mm3 (0.7-4.5); Lymphocytes % 26.9 % (10-50); Mean Corpuscular HGB Conc 33.7 g/dL (31.8-35.4); Mean Corpuscular Hemoglobin 32.3 pg (27.0-31.2); Mean Corpuscular Volume 95.8 fl (81-99); Mean Platelet Volume 9.2 fl (7.4-10.4); Monocytes # 0.5 K/mm3 (0.1-1.0); Monocytes % 5.3 % (1.7-9.3); Neutrophils # 6.3 K/mm3 (1.8-7.8); Neutrophils % 61.1 % (37.0-80.0); Platelet Count 201 K/mm3 (142-424); Red Blood Count 4.55 M/mm3 (4.20-5.40); Red Cell Distribution Width 14.8 % (11.5-17.5); White Blood Count 10.3 K/mm3 (4.8-10.8)
[2023-06-17 11:16] LABS: Erythrocyte Sedimentation Rate 19 mm/hr (0-30)
[2023-06-17 12:04] LABS: Alanine Aminotransferase 50 U/L (12-78); Albumin/Globulin Ratio 1.3 (1.1-1.8); Alkaline Phosphatase 102 U/L (38-126); Anion Gap 18.6 mEq/L (5-15); Aspartate Amino Transferase 68 U/L (14-36); Bilirubin,Total 0.8 mg/dl (0.2-1.3); Blood Urea Nitrogen 13 mg/dl (7-17); Calcium 9.4 mg/dl (8.4-10.2); Carbon Dioxide 21 mmol/L (22.0-30.0); Chloride 104 mmol/L (98-107); Chol/HDL Ratio 3.2 (1-3.5); Cholesterol 108 mg/dl (140-200); Estimated Glomerular Filt Rate 99 ml/min (>60); GFR (African American) 120 ML/MIN (>60); Glucose 240 mg/dl (74-100); HDL Cholesterol 34 mg/dl (40-60); Potassium 4.6 mmoL/L (3.5-5.1); Sodium 139 mmol/L (136-145); Triglycerides 99 mg/dl (30-150); VLDL Cholesterol 20 mg/dL (0-40)
[2023-06-17 12:12] LABS: C-Reactive Protein 2.1 mg/L (0-4)
[2023-06-17 12:15] LABS: Direct LDL Cholesterol 63.65 mg/dL (100-129)
[2023-06-17 12:17] LABS: 25-OH Vitamin D, Total 50.9 ng/mL (30-100)
[2023-06-17 12:34] LABS: Thyroid Stimulating Hormone 1.84 uIU/mL (0.465-4.68)
[2023-06-17 12:52] LABS: Vitamin B12 839 pg/mL (239-931)
[2023-06-17 13:00] LABS: Hemoglobin A1C 7.6 % (4.0-6.0)
== END ==
PROVIDERS: PCP Internal Medicine Adolescent Medicine; Visit Provider Nurse Practitioner Family
DX: E11.42 Type 2 diabetes mellitus with diabetic polyneuropathy (principal); I10 Essential (primary) hypertension; E78.5 Hyperlipidemia, unspecified; D50.9 Iron deficiency anemia, unspecified; D84.821 Immunodeficiency due to drugs; M15.9 Polyosteoarthritis, unspecified; M45.9 Ankylosing spondylitis of unspecified sites in spine; M79.7 Fibromyalgia; R53.83 Other fatigue; E66.9 Obesity, unspecified; Z68.41 Body mass index [BMI] 40.0-44.9, adult; Z79.4 Long term (current) use of insulin; Z79.899 Other long term (current) drug therapy
CPT/HCPCS: 36415; 80053; 80061; 82306; 82607; 83036; 84443; 85025; 85651; 86140; 86480

== ENCOUNTER 2023-10-22 13:11 | Emergency (ER) | payer MEDICARE, SELFPAY ==
[2023-10-22 13:12] VITALS: BP 132/50; PULSE 76; RESP 20; TEMP 36.7; O2SAT 98; BMI 37.1
--- NOTE | 2023-10-22 14:04 | ED_ITS ---
Discharge Plan Disposition Patient Disposition: Home, Self-Care Condition: Fair Prescriptions Prescriptions: New hydrocodone-acetaminophen 5-325 mg tablet 1 tab PO Q6H PRN (Reason: pain) 3 Days Qty: 12 0RF No Action levothyroxine 50 mcg tablet 50 mcg PO DAILY 90 Days Patient Comments: metformin 500 mg tablet 1,000 mg PO BID 90 Days Patient Comments: Rx Instructions: 1000 mg 2 tablets losartan 50 mg tablet 50 mg PO DAILY 90 Days Patient Comments: insulin NPH and regular human [Novolin 70/30 U-100 Insulin] 100 unit/mL (70- 30) suspension 14 unit SUB-Q QAM gabapentin 300 mg capsule 300 mg PO BID 90 Days Patient Comments: calcium carbonate-vitamin D3 [Calcium 600 + D(3)] 600 mg calcium- 200 unit capsule 1 cap PO DAILY pyridoxine (vitamin B6) [Vitamin B-6] 100 mg tablet 100 mg PO HS cyanocobalamin (vitamin B-12) [Vitamin B-12] 1,000 mcg tablet 1,000 mcg PO DAILY docusate sodium [Dulcolax Stool Softener (dss)] 100 mg capsule 300 mg PO QHS rosuvastatin 10 mg tablet 10 mg PO HS 90 Days mupirocin 2 % ointment 1 ea TOPICAL DAILY pantoprazole 40 MG tablet,delayed release (DR/EC) 40 mg PO BID ferrous sulfate 325 MG tablet 325 mg PO DAILY loratadine-pseudoephedrine 1 EACH tablet extended release 24 hr 1 each PO HS insulin detemir U-100 100 UNIT/ML insulin pen 15 unit SQ HS potassium 99 MG tablet 99 mg PO HS multivitamin Tablet 1 tab PO DAILY albuterol sulfate 2.5 mg /3 mL (0.083 %) Solution For Nebulization 2.5 mg INHALATION QID PRN (Reason: asthma) clobetasol 0.05 % Cream 1 applic TOPICAL HS baclofen 10 mg Tablet 10 mg PO DAILY Azo Bladder Control 300 mg Capsule 1 cap PO DAILY Rybelsus 7 mg Tablet 7 mg PO DAILY Cognitive Health 500 mg Capsule 1 mg PO DAILY aspirin 325 mg Capsule 325 mg PO DAILY peg 3350-electrolytes [Golytely] 236-22.74-6.74 -5.86 gram recon soln 240 ml PO Q10M Rx Instructions: until fecal effluent is clear Referrals Follow up/Referrals: Franco Kelley DO [Staff Physician] - See instructions Ezra Leyva MD [Primary Care Provider] - See instructions Activity Restrictions/Add. Instructions Additional Instructions/Restrictions: Please wear sling and swath. Please call in the morning to make an appointment with Dr. Kelley of orthopedics. We have sent in a prescription for pain medicine to your pharmacy. Return to the ER or your PCP for any change in symptoms signs or condition. Clinical Impressions Clinical Impression: Fracture, humerus closed Qualifiers: Encounter type: initial encounter Humerus Location: proximal Fracture morphology: unspecified fracture morphology Laterality: left Qualified Code(s): S42.202A - Unspecified fracture of upper end of left humerus, initial encounter for closed fracture Fall Qualifiers: Encounter type: initial encounter Qualified Code(s): W19.XXXA - Unspecified fall, initial encounter Discharge ED Provider: Olayinka Mata General Adult HPI <FUENTES Young - Last Filed: 10/22/23 17:55> General Chief complaint: Fall Stated complaint: AO Pain on entire L side of body Time Seen by Provider: 10/22/23 13:30 History of Present Illness HPI narrative: Patient had an accidental fall in her home landing left shoulder first. Patient did not suffer loss of loss of consciousness however patient was unable to arise from a seated position and required significant amount of help due to the pain in her left shoulder. Patient also reports pain in her left hip but was able to bear weight and walk on it once she was upright. She denies cardiac chest pain shortness of breath fever chills hemoptysis hematochezia melena nausea diarrhea. Related Data Home Medications Medication Instructions Recorded Confirmed calcium carbonate 600 mg-vitamin 1 cap PO DAILY Supplement 10/23/17 08/16/22 D3 5 mcg (200 unit) capsule (Calcium 600 + D(3)) cyanocobalamin (vitamin B-12) 1,000 mcg PO DAILY Supplement 10/23/17 08/16/22 1,000 mcg tablet (Vitamin B-12) docusate sodium 100 mg capsule 300 mg PO QHS constipation 10/23/17 08/16/22 (Dulcolax Stool Softener (docusate)) gabapentin 300 mg capsule 300 mg PO BID Pain 90 days 10/23/17 08/16/22 insulin human U-100 NPH-regulr 14 unit SUB-Q QAM dm 10/23/17 08/16/22 70-30 mix 100 unit/mL subcutaneous susp (Novolin 70/30 U-100 Insulin) levothyroxine 50 mcg tablet 50 mcg PO DAILY thyroid 90 days 10/23/17 08/16/22 losartan 50 mg tablet 50 mg PO DAILY bp 90 days 10/23/17 08/16/22 metformin 500 mg tablet 1,000 mg PO BID Diabetes 90 days 10/23/17 08/16/22 pyridoxine (vitamin B6) 100 mg 100 mg PO HS Supplement 10/23/17 08/16/22 tablet (Vitamin B-6) rosuvastatin 10 mg tablet 10 mg PO HS Cholesterol 90 days 08/20/18 08/16/22 insulin detemir U-100 100 unit/mL 15 unit SQ HS dm 12/10/18 08/16/22 (3 mL) subcutaneous pen loratadine-pseudoephedrine ER 10 1 each PO HS allergies 12/10/18 08/16/22 mg-240 mg tablet,extended [id number] potassium 99 mg tablet 99 mg PO HS Supplement 12/10/18 08/16/22 ferrous sulfate 325 mg (65 mg 325 mg PO DAILY Supplement 01/25/19 08/16/22 iron) tablet pantoprazole 40 mg tablet,delayed 40 mg PO BID GERD 01/25/19 08/16/22 release mupirocin 2 % topical ointment 1 ea topical DAILY . 11/05/21 08/16/22 albuterol sulfate 2.5 mg/3 mL 2.5 mg inhalation QID PRN asthma 08/16/22 08/16/22 (0.083 %) solution for nebulization aspirin 325 mg capsule 325 mg PO DAILY Blood thinner 08/16/22 08/16/22 baclofen 10 mg tablet 10 mg PO DAILY Pain 08/16/22 08/16/22 citicoline 500 mg capsule 1 mg PO DAILY . 08/16/22 08/16/22 (Cognitive Health) clobetasol 0.05 % topical cream 1 applic topical HS . 08/16/22 08/16/22 multivitamin 1 tab PO DAILY Supplement 08/16/22 08/16/22 peg 3350-electrolytes 236 240 ml PO Q10M prep 08/16/22 08/16/22 gram-22.74 gram-6.74 gram-5.86 gram solution (Golytely) pumpkin seed extract-soy germ 300 1 cap PO DAILY Supplement 08/16/22 08/16/22 mg capsule (Azo Bladder Control) semaglutide 7 mg tablet (Rybelsus) 7 mg PO DAILY . 08/16/22 08/16/22 Previous Rx's Medication Instructions Recorded hydrocodone 5 mg-acetaminophen 325 1 tab PO Q6H PRN pain 3 days #12 10/22/23 mg tablet tabs Allergies Allergy/AdvReac Type Severity Reaction Status Date / Time clonazepam Allergy Severe I-HIVES Verified 01/24/22 14:27 diazepam Allergy Severe I-HIVES Verified 01/24/22 14:27 meperidine Allergy Severe HEMORRHAGE\ Verified 01/24/22 14:27 Penicillins Allergy Severe COMA Verified 01/24/22 14:27 tegaserod [From Zelnorm] Allergy Intermediate I-HIVES Verified 01/24/22 14:27 promethazine Allergy Mild HIVES,NAUSE Verified 01/24/22 14:27 A tramadol Allergy Mild I-HIVES Verified 01/24/22 14:27 canagliflozin [From Invokana] Allergy Unknown Verified 01/24/22 14:27 capsaicin [From Capzasin] Allergy Unknown Blister Verified 01/24/22 14:27 duloxetine [From Cymbalta] Allergy Unknown Verified 01/24/22 14:27 menthol [From Capzasin] Allergy Unknown Blister Verified 01/24/22 14:27 metformin [From Janumet] Allergy Unknown Verified 01/24/22 14:27 sitagliptin [From Janumet] Allergy Unknown Verified 01/24/22 14:27 empagliflozin Allergy Hives Verified 01/24/22 14:27 [From Jardiance] lisinopril AdvReac Cough Verified 01/24/22 14:27 CRANBERRIES Allergy Unknown I-HIVES Uncoded 11/19/21 09:17 [facility] <FUENTES Young - Last Filed: 10/22/23 17:55> [facility] Disclaimer: The information contained in this section may have been updated after the patient was seen, as this information can be updated by other users. Medical History (Updated 10/22/23 @ 16:23 by FUENTES Young) Kidney stone Chronic kidney disease Urinary tract infection Pneumonia History of COVID-19 Endometriosis Pelvic inflammatory disease (PID) History of stroke Osteoarthritis Fibromyalgia History of diverticulitis Irritable bowel syndrome (IBS) History of gastroesophageal reflux (GERD) Hypothyroid Diabetes mellitus, type 2 Hyperlipidemia Hypertension History of anemia Surgical History H/O thyroidectomy H/O colonoscopy H/O shoulder surgery History of hysterectomy History of tonsillectomy History of cholecystectomy Family History Father Throat cancer Family history of abdominal aortic aneurysm Mother Pancreatic cancer Family history of diabetes mellitus type II Family history of stroke Grandfather Family history of myocardial infarction Social History (Updated 08/16/22 @ 10:03 by Javier Andrews CRNA) Smoking Status: Never smoker alcohol intake: never substance use type: denies use current occupational status: disabled Travel in the last 8 weeks: None household members: spouse housing: house caffeine: Yes (daily) <FUENTES Young - Last Filed: 10/22/23 17:55> ROS Obtained: Yes Systems reviewed as appropriate & no additional complaints except as documented Physical Exam <FUENTES Young - Last Filed: 10/22/23 17:55> General General appearance: alert, in no apparent distress and in distress (From pain in the left shoulder) Head Head exam: atraumatic and normal inspection Eye Eye exam: Present normal appearance, PERRL and EOMI ENT ENT exam: Present normal exam, normal oropharynx and mucous membranes moist Neck Neck exam: Present normal inspection, full ROM and trachea midline; Absent tenderness or lymphadenopathy Chest Chest inspection: Present normal inspection and symmetric chest wall rise; Absent tenderness (Of the chest wall or ribs) Respiratory Respiratory exam: Present normal lung sounds bilaterally; Absent respiratory distress, wheezes or accessory muscle use Cardiovascular Cardiovascular exam: Present regular rate, normal rhythm, normal heart sounds, +S1 and +S2 Abdominal Exam Abdominal exam: Present soft (Obese) and normal bowel sounds; Absent tenderness, guarding or rebound Back Exam Back exam: Present normal inspection and full ROM; Absent tenderness Neurological Exam Neurological exam: Present alert, oriented X3 and CN II-XII intact Psychiatric Psychiatric exam: Present normal affect and normal mood Skin Skin exam: Present warm, dry and normal color Other Other exam information: The right-sided extremities are intact grossly to exam with full range of motion no tenderness to palpation no deformity. Left upper extremity appears to be deformed at the shoulder and is exquisitely tender to palpation. Clavicle is intact to palpation. Patient has strong radial and ulnar pulses good cap [id number] . However patient has paresthesia and feels sensation as burning and tingling. Patient describes her own sensation is that her hand is numb . There is some ecchymosis in the axillary crease. Pelvic compression causes pain in the left hip however the left lower extremity is grossly intact to palpation and neurovascular intact distally. Medical Decision Making <FUENTES Young - Last Filed: 10/22/23 17:55> Medical Records Medical records reviewed: Yes I reviewed the patient's medical records. Manjit Inquiry Pt receiving controlled substance: No Vital Signs: 10/22/23 13:12 10/22/23 14:44 10/22/23 15:01 Temperature 98.0 F Temperature Source Oral Pulse Rate 72 73 Pulse Rate [Radial] 76 Respiratory Rate 20 Blood Pressure 146/76 H 142/48 H Blood Pressure [Right Arm] 132/50 L Blood Pressure Mean 99 79 Blood Pressure Mean [Right Arm] 77 Blood Pressure Source Blood Pressure Source [Right Arm] Automatic Cuff Blood Pressure Position Blood Pressure Position [Right Arm] Sitting 02 Sat by Pulse Oximetry 98 99 97 Oxygen Delivery Method Room Air 10/22/23 16:58 Temperature 98.1 F Temperature Source Oral Pulse Rate 71 Pulse Rate [Radial] Respiratory Rate 14 Blood Pressure 137/54 L Blood Pressure [Right Arm] Blood Pressure Mean Blood Pressure Mean [Right Arm] Blood Pressure Source Automatic Cuff Blood Pressure Source [Right Arm] Blood Pressure Position Sitting Blood Pressure Position [Right Arm] 02 Sat by Pulse Oximetry Oxygen Delivery Method Room Air Lab Data Lab results reviewed: Yes I reviewed the patient's lab results. Lab Results 10/22/23 14:37: WBC 18.9 H, RBC 4.74, Hgb 15.0, Hct 45.5, MCV 95.9, MCH 31.6 H, MCHC 33.0, RDW 14.5, Plt Count 304, MPV 9.7, Neut % (Auto) 85.4 H, Lymph % (Auto) 10.2, [place] % (Auto) 3.0, Eos % (Auto) 0.8, Baso % (Auto) 0.6, Neut # (Auto) 16.1 H, Lymph # (Auto) 1.9, [place] # (Auto) 0.6, Eos # (Auto) 0.2, Baso # (Auto) 0.1, Total Counted 100, Neutrophils % (Manual) 73, Band Neutrophils % 4.0, Lymphocytes % (Manual) 17, Monocytes % (Manual) 4, Eosinophils % (Manual) 2, Platelet Estimate Normal, Hypochromasia 1+, Macrocytosis 1+, PT 11.5, INR 1.07, Sodium 139, Potassium 4.0, Chloride 105, Carbon Dioxide 26, Anion Gap 12.0, BUN 15, Creatinine 0.80, Estimated Creat Clear 87, Estimated GFR 71, Est GFR ( Amer) 86, Glucose 133 H, Calcium 9.3 10/22/23 14:37 10/22/23 14:37 Orders (Tests/Meds): ED MEDICATIONS Discontinued Medications Generic Name Dose Route Start Last Admin Trade Name Freq PRN Reason Stop Dose Admin Acetaminophen 1,000 mg 10/22/23 14:11 10/22/23 14:39 Acetaminophen 1,000mg/100ml Vial IV 10/22/23 14:12 1,000 mg ONCE ONE Administration Ketorolac Tromethamine 15 mg 10/22/23 14:11 10/22/23 14:38 Ketorolac 30mg/Ml Vial IV 10/22/23 14:12 15 mg ONCE ONE Administration Sodium Chloride 10 ml 10/22/23 14:44 Sodium Chloride 0.9% 10ml Flush Syringe IV 11/21/23 14:43 NEEDED PRN Maintain IV Site ORDERS Category Date Time Status CT shoulder LT wo con Stat Cat Scan 10/22/23 15:27 Completed Shoulder XR left minimum 2 views [XR shoulder LT min 2V Exams 10/22/23 14:11 Completed ] Stat XR hip LT 2-3V w/pelvis Stat Exams 10/22/23 14:11 Completed BMP [Basic Metabolic Panel] Stat Lab 10/22/23 14:37 Completed CBC w/Auto Diff [Complete Blood Count Auto Diff] Stat Lab 10/22/23 14:37 Completed INR [Prothrombin Time INR] Stat Lab 10/22/23 14:37 Completed Medical Decision Narrative: In summary patient is a 68-year-old female who presents to the emergency department for evaluation of of a fall with left hip pain and left shoulder pain. Patient is hemodynamically stable upon arrival, afebrile. Physical exam is remarkable for deformity at the left shoulder and tenderness to palpation at the left hip with paresthesias on exam however left upper extremity is vascularly intact as well as the left lower extremity. Differential diagnosis includes fractures humerus fracture humerus dislocation pelvic fracture femur fracture contusions etc. Initial workup will be conducted with hematologic labs plain film x-ray and CT scan left shoulder. Initial interventions include Toradol Tylenol. Initial workup reviewed by me shows via my informal interpretation a comminuted humeral head fracture and the remainder of her studies show no acute fractures or processes.. Upon repeat evaluation patient has had modest improvement in her pain. Given this I discussed with Dr. Kelley patient management. Per our discussion patient will place in a sling and swath with a follow-up with Dr. Kelley in his office. Patient has a prescription for opiates sent to her pharmacy for severe pain. Patient instructed to take Tylenol Motrin alternating every 4 hours as needed as well. <Olayinka Mata MD - Last Filed: 10/23/23 09:01> Vital Signs: 10/22/23 13:12 10/22/23 14:44 10/22/23 15:01 Temperature 98.0 F Temperature Source Oral Pulse Rate 72 73 Pulse Rate [Radial] 76 Respiratory Rate 20 Blood Pressure 146/76 H 142/48 H Blood Pressure [Right Arm] 132/50 L Blood Pressure Mean 99 79 Blood Pressure Mean [Right Arm] 77 Blood Pressure Source Blood Pressure Source [Right Arm] Automatic Cuff Blood Pressure Position Blood Pressure Position [Right Arm] Sitting 02 Sat by Pulse Oximetry 98 99 97 Oxygen Delivery Method Room Air 10/22/23 16:58 Temperature 98.1 F Temperature Source Oral Pulse Rate 71 Pulse Rate [Radial] Respiratory Rate 14 Blood Pressure 137/54 L Blood Pressure [Right Arm] Blood Pressure Mean Blood Pressure Mean [Right Arm] Blood Pressure Source Automatic Cuff Blood Pressure Source [Right Arm] Blood Pressure Position Sitting Blood Pressure Position [Right Arm] 02 Sat by Pulse Oximetry Oxygen Delivery Method Room Air Lab Data Lab Results 10/22/23 14:37: WBC 18.9 H, RBC 4.74, Hgb 15.0, Hct 45.5, MCV 95.9, MCH 31.6 H, MCHC 33.0, RDW 14.5, Plt Count 304, MPV 9.7, Neut % (Auto) 85.4 H, Lymph % (Auto) 10.2, [place] % (Auto) 3.0, Eos % (Auto) 0.8, Baso % (Auto) 0.6, Neut # (Auto) 16.1 H, Lymph # (Auto) 1.9, [place] # (Auto) 0.6, Eos # (Auto) 0.2, Baso # (Auto) 0.1, Total Counted 100, Neutrophils % (Manual) 73, Band Neutrophils % 4.0, Lymphocytes % (Manual) 17, Monocytes % (Manual) 4, Eosinophils % (Manual) 2, Platelet Estimate Normal, Hypochromasia 1+, Macrocytosis 1+, PT 11.5, INR 1.07, Sodium 139, Potassium 4.0, Chloride 105, Carbon Dioxide 26, Anion Gap 12.0, BUN 15, Creatinine 0.80, Estimated Creat Clear 87, Estimated GFR 71, Est GFR ( Amer) 86, Glucose 133 H, Calcium 9.3 Orders (Tests/Meds): ED MEDICATIONS Discontinued Medications Generic Name Dose Route Start Last Admin Trade Name Krissy PRN Reason Stop Dose Admin Acetaminophen 1,000 mg 10/22/23 14:11 10/22/23 14:39 Acetaminophen 1,000mg/100ml Vial IV 10/22/23 14:12 1,000 mg ONCE ONE Administration Ketorolac Tromethamine 15 mg 10/22/23 14:11 10/22/23 14:38 Ketorolac 30mg/Ml Vial IV 10/22/23 14:12 15 mg ONCE ONE Administration Sodium Chloride 10 ml 10/22/23 14:44 Sodium Chloride 0.9% 10ml Flush Syringe IV 11/21/23 14:43 NEEDED PRN Maintain IV Site ORDERS Category Date Time Status CT shoulder LT wo con Stat Cat Scan 10/22/23 15:27 Completed Shoulder XR left minimum 2 views [XR shoulder LT min 2V Exams 10/22/23 14:11 Completed ] Stat XR hip LT 2-3V w/pelvis Stat Exams 10/22/23 14:11 Completed BMP [Basic Metabolic Panel] Stat Lab 10/22/23 14:37 Completed CBC w/Auto Diff [Complete Blood Count Auto Diff] Stat Lab 10/22/23 14:37 Completed INR [Prothrombin Time INR] Stat Lab 10/22/23 14:37 Completed Medical Decision Narrative: In summary patient is a 68-year-old female who presents to the emergency department for evaluation of of a fall with left hip pain and left shoulder pain. Patient is hemodynamically stable upon arrival, afebrile. Physical exam is remarkable for deformity at the left shoulder and tenderness to palpation at the left hip with paresthesias on exam however left upper extremity is vascularly intact as well as the left lower extremity. Differential diagnosis includes fractures humerus fracture humerus dislocation pelvic fracture femur fracture contusions etc. Initial workup will be conducted with hematologic labs plain film x-ray and CT scan left shoulder. Initial interventions include Toradol Tylenol. Initial workup reviewed by me shows via my informal interpretation a comminuted humeral head fracture and the remainder of her studies show no acute fractures or processes.. Upon repeat evaluation patient has had modest improvement in her pain. Given this I discussed with Dr. Kelley patient management. Per our discussion patient will place in a sling and swath with a follow-up with Dr. Kelley in his office. Patient has a prescription for opiates sent to her pharmacy for severe pain. Patient instructed to take Tylenol Motrin alternating every 4 hours as needed as well. I was consulted by the JESUSITA, and we discussed the complexity of the problems being addressed. I approved the treatment and management plan for this patient?s care in the Emergency Department, thus performing a substantive portion of the medical decision making. Olayinka Mata MD Critical Care <FUENTES Young - Last Filed: 10/22/23 17:55> Critical Care Time Critical Care Time: No
--- NOTE | 2023-10-22 14:11 | XR_ITS ---
FINAL REPORT CLINICAL HISTORY: fall, left hip pain COMPARISON: None FINDINGS: LEFT HIP: 3 views of the left hip including an AP view of the pelvis demonstrate no acute fracture or dislocation. There is moderate degenerative change. The visualized bony structures are well aligned. No soft tissue abnormality is seen. IMPRESSION: No acute bony abnormality. Reviewed, Interpreted and Dictated by Jake Mcgregor III, MD Transcribed by Conchita Rivas Authenticated and [facility]
--- NOTE | 2023-10-22 14:11 | XR_ITS ---
FINAL REPORT CLINICAL HISTORY: fall, left shoulder pain FINDINGS: LEFT SHOULDER 4 views were obtained. There is suboptimal positioning. There are multiple views of the humerus in internal rotation and the Y view is suboptimal. There is deformity of the humeral head and neck of uncertain age. There are degenerative changes. Acute injury cannot be excluded. No soft tissue abnormality is seen. IMPRESSION: Acute injury cannot be excluded on the suboptimal exam. CT could further evaluate. Reviewed, Interpreted and Dictated by Jake Mcgregor III, MD Transcribed by Conchita Rivas Authenticated and [facility]
[2023-10-22] MEDS: KETOROLAC 30MG/ML VIAL 15 MG IV (14:38)
[2023-10-22] MEDS: ACETAMINOPHEN 1,000MG/100ML VIAL 1000 MG IV (14:39)
[2023-10-22 14:44] VITALS: BP 146/76; PULSE 72; O2SAT 99
[2023-10-22 14:57] LABS: Chloride 105 mmol/L (98-107); Sodium 139 mmol/L (136-145)
[2023-10-22 14:58] LABS: Basophils # 0.1 K/mm3 (0-0.2); Basophils % 0.6 % (0.1-2.0); Eosinophils # 0.2 K/mm3 (0.0-0.4); Eosinophils % 0.8 % (0.1-12.0); Hematocrit 45.5 % (37.0-47.0); Lymphocytes # 1.9 K/mm3 (0.7-4.5); Lymphocytes % 10.2 % (10-50); Mean Corpuscular Hemoglobin 31.6 pg (27.0-31.2); Mean Corpuscular Volume 95.9 fl (81-99); Mean Platelet Volume 9.7 fl (7.4-10.4); Monocytes # 0.6 K/mm3 (0.1-1.0); Neutrophils # 16.1 K/mm3 (1.8-7.8); Neutrophils % 85.4 % (37.0-80.0); Platelet Count 304 K/mm3 (142-424); Red Blood Count 4.74 M/mm3 (4.20-5.40); Red Cell Distribution Width 14.5 % (11.5-17.5); White Blood Count 18.9 K/mm3 (4.8-10.8)
[2023-10-22 15:00] LABS: Blood Urea Nitrogen 15 mg/dl (7-17); Creatinine Clearance Estimated 87 mL/min (50-200); Estimated Glomerular Filt Rate 71 ml/min (>60); GFR (African American) 86 ML/MIN (>60)
[2023-10-22 15:01] VITALS: BP 142/48; PULSE 73; O2SAT 97
[2023-10-22 15:01] LABS: Calcium 9.3 mg/dl (8.4-10.2); Carbon Dioxide 26 mmol/L (22.0-30.0); Glucose 133 mg/dl (74-100)
[2023-10-22 15:03] LABS: INR 1.07 (0.9-1.1); Prothrombin Time 11.5 seconds (10.1-12.5)
[2023-10-22 15:22] LABS: MANUAL DIFFERENTIAL MANUAL DIFFERENTIAL (MANUAL DIFF)
--- NOTE | 2023-10-22 15:27 | CT_ITS ---
TECHNIQUE: Axial images through the upper extremity was performed by computed tomography. Sagittal and coronal reformatted images were obtained and reviewed. This study was performed with techniques to keep radiation doses as low as reasonably achievable (ALARA). Individualized dose reduction techniques using automated exposure control or adjustment of mA and/or kV according to the patient's size were employed. CLINICAL HISTORY: Fall, trauma FINDINGS: There is a comminuted fracture of the humeral head and surgical neck. There is 13 mm of medial subluxation of the distal fracture fragment and 19 mm of anterior displacement of the distal fracture fragment. There is posterior rotation of the humeral head. No dislocation is identified. There is mild AC joint degenerative change. Note is made of deformity of the medial clavicle with fusion to the anterior left 1st rib, may be posttraumatic or possibly congenital. IMPRESSION: Comminuted fracture as above. Reviewed, Interpreted and Dictated by Balbir MCKNIGHT MD, Charles M., Transcribed by Jaja Sierra Signed by Balbir MCKNIGHT MD, Charles M. on 10/23/2023 8:38:43 AM, Eastern Time [facility]
--- NOTE | 2023-10-22 16:16 | PC.NURSE ---
Erwin Montalvo PA-C s/w Dr. Kelley
[2023-10-22 16:46] LABS: Eosinophils % 2 % (0-3); Lymphocytes % 17 % (10-50); Monocytes % 4 % (2-9); Neutrophils % 73 % (42-76); Total Cells Counted 100
--- NOTE | 2023-10-22 16:56 | PC.NURSE ---
TRN placed a swing and swath on pt left arm. Patient tolerated procedure well.
[2023-10-22 16:58] VITALS: BP 137/54; PULSE 71; RESP 14; TEMP 36.7; O2SAT 97
[2023-10-22 17:04] LABS: Hypochromasia 1+; Macrocytosis 1+; Platelet Estimate Normal
== END 2023-10-22 17:02 | disposition home or self-care (01) ==
PROVIDERS: Physician Assistant; Emergency Provider Emergency Medicine; PCP Internal Medicine Adolescent Medicine
DX: S42.202A Unspecified fracture of upper end of left humerus, initial encounter for closed fracture (principal); M25.552 Pain in left hip; W19.XXXA Unspecified fall, initial encounter; I12.9 Hypertensive chronic kidney disease with stage 1 through stage 4 chronic kidney disease, or unspecified chronic kidney disease; N18.9 Chronic kidney disease, unspecified; E11.22 Type 2 diabetes mellitus with diabetic chronic kidney disease; Z86.73 Personal history of transient ischemic attack (TIA), and cerebral infarction without residual deficits; E78.5 Hyperlipidemia, unspecified; E03.9 Hypothyroidism, unspecified
CPT/HCPCS: 73030; 73200; 73502; 80048; 85007; 85025; 85610; 96374; 96375; 99285; J0131

== ENCOUNTER 2023-11-06 10:17 | Outpatient (CLI) | payer MEDICARE, SELFPAY ==
--- NOTE | 2023-11-06 10:23 | XR_ITS ---
FINAL REPORT CLINICAL HISTORY: Lt Shoulder pain COMPARISON: 10/22/2023 FINDINGS: Left shoulder Three views were obtained. There is a displaced fracture through the surgical neck of the humerus. Fracture fragments appear more displaced than previous approximately 1/3 shaft width medial displacement of the fracture fragment. IMPRESSION: Progressive displacement of fracture through the surgical neck of the humerus. Reviewed, Interpreted and Dictated by Carlos Craven MD Transcribed by Jaja Sierra Authenticated and [facility]
== END 2023-11-06 23:59 ==
PROVIDERS: PCP Internal Medicine Adolescent Medicine; Visit Provider Orthopaedic Surgery
DX: S42.202A Unspecified fracture of upper end of left humerus, initial encounter for closed fracture (principal)
CPT/HCPCS: 73030

== ENCOUNTER 2023-12-04 12:06 | Outpatient (CLI) | payer MEDICARE, SELFPAY ==
--- OUTSIDE RECORDS SUMMARY | 2023-12-04 12:10 | XMS_ITS | Continuity of Care Document ---
Author Name Unknown Organization [facility] Address [address] [address] Phone Care Team Providers Care Garnetter Name Role Phone Alvin Li DO Unavailable Unavailable Allergies, Adverse Reactions, Alerts Substance Reaction Status Criticality DULOXETINE HCL Active No Informatio n SITAGLIPTIN PHOSPHATE Active No Inf ormation METFORMIN HCL Active No Information diazepam Active No Information canagliflozin Active No Information cranberry Active No Information empagliflozin Active No Information DULOXETINE HCL Active No Informatio n menthol Active No Information capsaicin Active No Information PROMETHAZINE HCL Active No Informat ion lisinopril Active No Information clonazepam Active No Information tramadol Active No Information Penicillins Active No Information PRESERVATIVE FREE Active No Informa tion MEPERIDINE HCL Active No Informatio n Medications Medication Instructions Dosage Effective Dates (start - stop) Status Comments Humira(CF) Pen 40 mg/0.4 mL subcutaneous kit inject 0.4 milliliter by subcutaneous route every 2 weeks in the abdomen or thigh (rotate sites) 40 MG - Active PA approved thru 08/10/2022 - Gets thru [employer] - approved thru 08/10/2022 baclofen 10 mg tablet take 1 tablet by oral route 3 times every day PRN - Active ropinirole 0.25 mg tablet take 1 tablet by oral route 2 times every day 0.25 MG - Active gabapentin 300 mg capsule take 1 capsule by oral route 4 times every day 300 MG - Active Millie-Strang Heartburn 1,650 mg-1,000 mg effervescent tablet - Active levothyroxine 50 mcg capsule take 1 capsule by oral route every day 50 MCG - Active Calcium 600 + D(3) 600 mg-5 mcg (200 unit) capsule - Active Neuriva Original 100 mg-100 mg capsule - Active Collagen Skin Renewal 30 mg-833.3 mg tablet once daily - Active clobetasol 0.05 % topical cream apply by topical route 2 times every day a thin layer to the affected area(s) 0.00 - Active Rybelsus 7 mg tablet take 1 tablet by oral route every day in the morning 30 min before any food, drink or medication with no more than 4 oz plain water 7 MG - Active Vitamin B-6 100 mg tablet once daily - Active Vitamin B-12 1,000 mcg tablet take 1 tablet by oral route every day 1 tablet - Active Vitamin D3 25 mcg (1,000 unit) capsule take 1 capsule by oral route every day 1 capsule - Active APPLE CIDER VINEGAR (unknown strength) one daily Not Available - Active albuterol sulfate concentrate 5 mg/mL(0.5 %) solution for nebulization inhale 0.5 milliliter by inhalation route 3- 4 times every day via nebulizer as needed 2.5 MG - Active losartan 50 mg tablet take 1 tablet by oral route every day 50 MG - Active Tirosint 50 mcg capsule take 1 capsule by oral route every day 50 MCG - Active rosuvastatin 10 mg tablet take 1 tablet by oral route every day 10 MG - Active metformin 500 mg tablet take 2 tablet by oral route 2 times every day with morning and evening meals 1000 MG - Active Levemir U-100 Insulin 100 unit/mL subcutaneous solution inject 20 units once daily by subcutaneous route per prescriber's instructions. Insulin dosing requires individualization . - Active ferrous sulfate 325 mg (65 mg iron) tablet take 1 tablet by oral route every day 325 MG - Active Dulcolax Stool Softener (docusate) 100 mg capsule take 3 capsule by oral route every day at bedtime as needed 300 MG - Active Claritin-D 24 Hour 10 mg-240 mg tablet,extended release take 1 tablet by oral route every day 1.00 tablet - Active Azo Bladder Control 300 mg capsule 1 in the am and 1 in the pm - Active aspirin 325 mg tablet take 2 tablet by oral route every day 650 MG - Active pantoprazole 40 mg tablet,delayed release take 1 tablet by oral route every day 40 MG - Active Relion Confirm kit Injects 14 units once daily - Active NATROL 5-HTP (unknown strength) Takes Cognium Brain Supplement BID Not Available - Active Procedures Procedure Date Office Visit Level IV Office Visit Level IV Office Visit Level IV Office Visit Level IV Office Visit Level II Office Visit Level IV Office Visit Level IV Office Visit Level IV Office Visit Level III Office Visit Level I New Office Visit Level IV Advance Directives Directive Yes / No Effective Date File Name No Information Encounters Encounter Description Practice Location Reason(s) For Visit Diagnoses Date Provider Providers Copied on Encounter [facility] [address] [place] [address], [id number], tel:[phone] [facility] No Information 3 [facility]. [address] [place] [address], [address]. tel:[phone] [facility] [address] [place] [address], [id number], tel:[phone] [facility] 0 3 [facility]. [address] [place] [address], [address]. tel:[phone] Office Visit Level IV [facility] [address] [place] [address] [employer], [id number], tel:[phone] [facility] Follow Up of Ankylosing Spondylitis (chief complaint)Ost eoarthritis (chief complaint)Fib romyalgia Syndrome (chief complaint) Immunodefici ency due to drugsGeneral ized osteoarthrit isAnkylosing SpondylitisF ibromyalgiaF atigueBody mass index (BMI) 40.0-44.9, adult 3 [facility]. [address] [facility], [facility] [address], [address]. tel:[phone] Referring Provider: Ezra Leyva [address] [place] [address]. [address], [address]. tel:[phone] Office Visit Level IV [facility], [address] [place] [address], [id number], tel:[phone] [facility] Follow Up of Ankylosing Spondylitis (chief complaint)Ost eoarthritis (chief complaint)Fib romyalgia Syndrome (chief complaint) Generalized osteoarthrit isAnkylosing SpondylitisF ibromyalgiaB deyvi mass index (BMI) 40.0-44.9, adultFatigue Immunodefici ency due to drugs 3 Dennys Evva. [address] [place] [address], [id number]. tel:[phone] Referring Provider: Ezra Leyva [address] [place] [address]. [address], [address]. tel:[phone] Office Visit Level IV [facility], [address] [place] [address], [id number], tel:[phone] [facility] Follow Up of Ankylosing Spondylitis (chief complaint)Ost eoarthritis (chief complaint)Fib romyalgia Syndrome (chief complaint) Immunosuppre ssionGeneral ized osteoarthrit isAnkylosing SpondylitisF ibromyalgia 2 [facility]. [address] [facility], [address], [address]. tel:[phone] Referring Provider: Ezra Leyva [address] [place] [address]. [address], [address]. tel:[phone] Office Visit Level IV [facility] [address] [place] [address], [id number], tel:[phone] [facility] Follow Up of Ankylosing Spondylitis (chief complaint)Ost eoarthritis (chief complaint)Fib romyalgia Syndrome (chief complaint) Immunosuppre ssionGeneral ized osteoarthrit isAnkylosing SpondylitisF ibromyalgiaB deyvi mass index (BMI) 40.0-44.9, adultFatigue 2 [facility] [employer] [facility]. [address] [place] [address], [id number], . tel:[phone] Referring Provider: Ezra Leyva [address] [place] [address], [id number]. tel:[phone] Office Visit Level II [facility] [address] [place] [address], [id number], tel:[phone] [facility] Follow Up of Ankylosing Spondylitis (chief complaint)Ost eoarthritis (chief complaint)Fib romyalgia Syndrome (chief complaint) Immunosuppre ssionGeneral ized osteoarthrit isAnkylosing SpondylitisF ibromyalgiaB deyvi mass index (BMI) 40.0-44.9, adult 1 [facility]. [address] [place] [address], [address]. tel:[phone] Referring Provider: Ezra Leyva [address] [place] [address], [address]. tel:[phone] Office Visit Level IV [facility], [address] [place] [address], [id number], tel:[phone] [facility] Follow Up of Ankylosing Spondylitis (chief complaint)Ost eoarthritis (chief complaint)Fib romyalgia Syndrome (chief complaint) Immunosuppre ssionGeneral ized osteoarthrit isAnkylosing SpondylitisF ibromyalgia 1 [facility]. [address] [place] [address] [facility] [address], [place], [address]. tel:[phone] Referring Provider: [facility]. [address], [address]. tel:[phone] Office Visit Level IV [facility] [address] [place] [address], [id number], tel:[phone] [facility] Follow Up of Ankylosing Spondylitis (chief complaint)Ost eoarthritis (chief complaint)Fib romyalgia Syndrome (chief complaint) Immunosuppre ssionGeneral ized osteoarthrit isAnkylosing SpondylitisF ibromyalgiaF atigueBody mass index (BMI) 40.0-44.9, adult Solo-0 1 [facility]. [address] [place] [address], [address], [address]. tel:[phone] Referring Provider: Ezra Leyva [address] [place] [address]. [address], [address]. tel:[phone] Office Visit Level IV [facility], [address] [place] [address], [id number], [place] tel:[phone] [facility] Follow Up of Ankylosing Spondylitis (chief complaint)Ost eoarthritis (chief complaint)Fib romyalgia Syndrome (chief complaint) Immunosuppre ssionGeneral ized osteoarthrit isAnkylosing SpondylitisF ibromyalgiaB 12 DeficiencyFa tigue Sep-0 0 [facility]. [address], [id number]. tel:[phone] Referring Provider: Ezra Leyva [address] [place] [address]. [address], [address]. tel:[phone] Office Visit Level III [facility], [address] [place] [address], [id number], [place] tel:[phone] [facility] Follow Up of Ankylosing Spondylitis (chief complaint)Ost eoarthritis (chief complaint)Fib romyalgia Syndrome (chief complaint) Generalized osteoarthrit isFibromyalg iaAnkylosing SpondylitisI mmunosuppres zane 0 [place] [facility]. [address], [place] [address], [place], [address]. tel:[phone] Referring Provider: Ezra Leyva [address] [place] [address], [address]. tel:[phone] Office Visit Level I [facility], [address] [place] [address], [id number], tel:[phone] [facility] Polyosteoart hritis, unspecified 0 [facility]. [address] [place] [address], [place] [address], [place], [address]. tel:[phone] Referring Provider: zEra Leyva [address] [place] [address], [address]. tel:[phone] New Office Visit Level IV [facility], [address] [place] [address], [id number], [place] tel:[phone] [facility]. Musculoskelet al Pain (chief complaint)Ost eoarthritis (chief complaint) ArthralgiaFa tigueGeneral ized osteoarthrit isBody mass index (BMI) 40.0-44.9, adultFH: Rheumatoid [facility]ritisFib romyalgia 0 [facility]. [address], [place] [address], [place], [address]. tel:[phone] Referring Provider: [facility] [address], [address]. tel:[phone] Family History Family Member Type Diagnosis Age At Onset Daughter Problem (finding) hypertension Mother Problem (finding) dementia Son Problem (finding) Gout Mother Problem (finding) Parkinson's disease (Ca use Of ) 84 Father Problem (finding) Tremors Father Problem (finding) Aneurism in Aorta (Caus e Of ) 70 Mother Problem (finding) malignant neoplasm of p ancreas Father Problem (finding) malignant neoplasm of p harynx Mother Problem (finding) Arthritis Daughter Problem (finding) rheumatoid arthritis Payers Payer name Insurance type Covered constitution party ID Matty harrison(s) Medicare [id number] Social History Type Description Quantity Date Captured Comments Alcohol Use Details Unknown Caffeine Use Details Unknown Tobacco Use Status No Information Smoking Status No Information Sex Female Chief Complaint And Reason For Visit No Information Reason For Referral Reason For Referral No Information Plan Of Treatment Date Type Action Status Goal Lifestyle education regardin g diet completed Goal Lifestyle education regardin g diet completed Goal Lifestyle education regardin g diet completed Goal Lifestyle education regardin g diet completed Goal Lifestyle education regardin g diet completed Goal Lifestyle education regardin g diet completed Goal Lifestyle education regardin g diet completed Goal Lifestyle education regardin g diet completed Appointment Rosi Byrd BOOKED Patient Education Thumb Arthritis: Exerci ses completed Patient Education Hand Arthritis: Exercis es completed Patient Education Foot Arthritis: Exercis es completed Patient Education Arthritis: Care Instruc tions completed Patient Education Ankylosing Spondylitis: Exercises completed Patient Education Ankylosing Spondylitis: Exercises completed Future Order: Lab Order Acute He patitis Panel ([id number]), Sent on: Sent Future Order: Lab Order CBC With Differential/Platelet ([id number]), Sent on: Sent Future Order: Lab Order Comp. Me tabolic Panel (14) ([id number]), Sent on: Sent Future Order: Lab Order C-Reacti ve Protein, Quant ([id number]), Sent on: Sent Future Order: Lab Order Sediment ation Rate-Westergren ([id number]), Sent on: Sent Future Order: Lab Order QuantiFE JAMAL TB Gold Plus(in Tube) ([id number]), Sent on: Sent Future Order: Lab Order CBC With Differential/Platelet ([id number]), Ordered on: Ordered Future Order: Lab Order Comp. Pa tabolic Panel (14) ([id number]), Ordered on: Ordered Future Order: Lab Order C-Reacti ve Protein, Quant ([id number]), Ordered on: Ordered Future Order: Lab Order Sediment ation Rate-Westergren ([id number]), Ordered on: Ordered Future Order: Lab Order QuantiFE JAMAL TB Gold Plus(in Tube) ([id number]), Ordered on: Ordered Future Order: Lab Order Acute He patitis Panel ([id number]), Ordered on: Ordered Future Order: Lab Order CBC With Differential/Platelet ([id number]), Ordered on: Ordered Future Order: Lab Order Comp. Me tabolic Panel (14) ([id number]), Ordered on: Ordered Future Order: Lab Order C-Reacti ve Protein, Quant ([id number]), Ordered on: Ordered Future Order: Lab Order Sediment ation Rate-Westergren (513897), Ordered on: Ordered Future Order: Lab Order CBC With Differential/Platelet ([id number]), Ordered on: Ordered Future Order: Lab Order Comp. Me tabolic Panel (14) ([id number]), Ordered on: Ordered Future Order: Lab Order C-Reacti ve Protein, Quant ([id number]), Ordered on: Ordered Future Order: Lab Order Sediment ation Rate-Westergren (255357), Ordered on: Ordered Future Order: Lab Order CBC With Differential/Platelet ([id number]), Ordered on: Ordered Future Order: Lab Order C-Reacti ve Protein, Quant ([id number]), Ordered on: Ordered Future Order: Lab Order Comp. Pa tabolic Panel (14) ([id number]), Ordered on: Ordered Future Order: Lab Order Hepatiti s Panel (4) ([id number]), Ordered on: Ordered Future Order: Lab Order Sediment ation Rate-Westergren (142965), Ordered on: Ordered Future Order: Lab Order QuantiFE JAMAL TB Gold Plus(in Tube) ([id number]), Ordered on: Ordered Future Order: Lab Order CBC With Differential/Platelet ([id number]), Sent on: Sent Future Order: Lab Order Comp. Pa tabolic Panel (14) ([id number]), Sent on: Sent Future Order: Lab Order C-Reacti ve Protein, Quant ([id number]), Sent on: Sent Future Order: Lab Order Sediment ation Rate-Westergren (101505), Sent on: Sent Future Order: Lab Order CBC With Differential/Platelet ([id number]), Ordered on: Ordered Future Order: Lab Order Comp. Pa tabolic Panel (14) ([id number]), Ordered on: Ordered Future Order: Lab Order C-Reacti ve Protein, Quant ([id number]), Ordered on: Ordered Future Order: Lab Order Sediment ation Rate-Westergren (322651), Ordered on: Ordered Future Order: Lab Order CBC With Differential/Platelet ([id number]), Ordered on: Ordered Future Order: Lab Order Comp. Me tabolic Panel (14) ([id number]), Ordered on: Ordered Future Order: Lab Order C-Reacti ve Protein, Quant ([id number]), Ordered on: Ordered Future Order: Lab Order Sediment ation Rate-Westergren (774137), Ordered on: Ordered Future Order: Lab Order Hepatiti s Panel (4) (094303), Ordered on: Ordered Future Order: Lab Order Quanti FERON - TB Gold IT Plus (Theratest) (TBGP), Ordered on: Ordered Future Order: Lab Order CBC With Differential/Platelet ([id number]), Ordered on: Ordered Future Order: Lab Order Comp. Pa tabolic Panel (14) ([id number]), Ordered on: Ordered Future Order: Lab Order C-Reacti ve Protein, Quant ([id number]), Ordered on: Ordered Future Order: Lab Order Sediment ation Rate-Westergren (903875), Ordered on: Ordered Future Order: Lab Order Vitamin B12 and Folate (666650), Ordered on: Ordered Future Order: Lab Order Vitamin D, 25-Hydroxy (884773), Ordered on: Ordered Future Order: Lab Order CBC With Differential/Platelet (596844), Ordered on: Ordered Future Order: Lab Order Comp. Me tabolic Panel (14) ([id number]), Ordered on: Ordered Future Order: Lab Order C-Reacti ve Protein, Quant ([id number]), Ordered on: Ordered Future Order: Lab Order Sediment ation Rate-Westergren (628483), Ordered on: Ordered Future Order: Lab Order CBC With Differential/Platelet ([id number]), Ordered on: Ordered Future Order: Lab Order C4+C3 ([id number]), O rdered on: Ordered Future Order: Lab Order Antinucl ear Antibodies, AUTUMN, IFA ([id number]), Ordered on: Ordered Future Order: Lab Order Anti-Becka- 1 ([id number]), Ordered on: Ordered Future Order: Lab Order Aldolase ([id number]), Ordered on: Ordered Future Order: Lab Order Comp. Me tabolic Panel (14) ([id number]), Ordered on: Ordered Future Order: Lab Order C-Reacti ve Protein, Quant ([id number]), Ordered on: Ordered Future Order: Lab Order Creatine Kinase,Total,Serum ([id number]), Ordered on: Ordered Future Order: Lab Order Hepatiti s Panel (4) ([id number]), Ordered on: Ordered Future Order: Lab Order HLA B 27 Disease Association ([id number]), Ordered on: Ordered Future Order: Lab Order Lupus An ticoagulant Panel ([id number]), Ordered on: Ordered Future Order: Lab Order TSH+Free T4 ([id number]), Ordered on: Ordered Future Order: Lab Order Uric Aci d, Serum (860554), Ordered on: Ordered Future Order: Lab Order Sediment atcarmel Rate-Rosaren (859389), Ordered on: Ordered Future Order: Lab Order Urinalys is, Routine ([id number]), Ordered on: Ordered Future Order: Lab Order Cyclic Citrullinated Peptide-4P (Theratest) (CCP4P), Ordered on: Ordered Future Order: Lab Order EL-AUTUMN 9C TONYA Method, IgG (Theratest) (ANA9C), Ordered on: Ordered Future Order: Lab Order Quanti FERON - TB Gold IT Plus (Theratest) (TBGP), Ordered on: Ordered Future Order: Lab Order Anti-T hyroglobulin (Theratest) (THYG), Ordered on: Ordered Future Order: Lab Order Anti T hyroperoxidase (Theratest) (TPO), Ordered on: Ordered Future Order: Lab Order 25-Hyd adamaris Vitamin D (Theratest) (VITADEI), Ordered on: Ordered Future Order: Lab Order Rheuma toid Factor/3 IgM, IgG, IgA (Theratest) (RF3), Ordered on: Ordered History Of Present Illness Encounter Date Complaint History Of Prese nt Illness Follow Up of Ankylosing Spondyli tis Osteoarthritis Fibromyalgia Syndrome Follow Up of Ankylosing Spondyli tis Osteoarthritis Fibromyalgia Syndrome Follow Up of Ankylosing Spondyli tis Osteoarthritis Fibromyalgia Syndrome Follow Up of Ankylosing Spondyli tis Osteoarthritis Fibromyalgia Syndrome Follow Up of Ankylosing Spondyli tis Osteoarthritis Fibromyalgia Syndrome Osteoarthritis Fibromyalgia Syndrome Follow Up of Ankylosing Spondyli tis Follow Up of Ankylosing Spondyli tis Osteoarthritis Fibromyalgia Syndrome Follow Up of Ankylosing Spondyli tis Osteoarthritis Fibromyalgia Syndrome Follow Up of Ankylosing Spondyli tis Fibromyalgia Syndrome Osteoarthritis Musculoskeletal Pain Osteoarthritis Functional Status Date Functional Assessmen t No Information Instructions Date Instruction Additional Infor mation 1. Hold if the patie nt develops infection. 2. Avoid live vaccines while on this medication. 3. No recent serious infections4. No injection site reactions. 5. 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 Continue Humira. Refill today 2. Labs ordered today3. Follow up in 4-6 months. 4. She has seen a chiropractor PRN. 5. She takes aspirin PRN.6. Tylenol PRN is ok as directed. 7. She is intolerant/allergic to Tramadol. 8. She takes Baclofen PRN for muscle pain/spasms. Refill today 9. We gave her a handout on thumb arthritis to take home and [id number]. She avoids/limits oral NSAIDs due to GI issues 11. Her prognosis is guarded. She has chronic pain Related to Ankylosing Spondylitis 1. Tylenol PRN is fi ne as directed. 2. She lists that she is allergic/intolerant of Tramadol. 3. Weight loss would be helpful. 4. She has seen a chiropractor. 5. She takes aspirin PRN6. She has taken gabapentin for neuropathic pain 7. She limits/avoids oral NSAIDS due to GI issues Related to Generalized osteoarthritis 1. H & P consistent with this diagnosis. 2. Encourage aerobic activity and sleep hygiene.3. If she has not had a sleep study/consultation consider getting this done. 4. She does not take NSAIDs regularly due to history of stomach ulcers. 5. She will follow up with us in 4-6 months.6. Weight loss would be helpful. 8. She has seen a chiropractor 9. She takes gabapentin per her PCP10. She lists that she is allergic to [id number]. She lists that she is allergic to Tramadol. 12. Continue Baclofen PRN. Refill today Related to Fibromyalgia Lifestyle education regarding di et Related to Body mass index [BMI] 40.0-44.9, adult Update QTB and hepatitis panel t hilary Related to Fatigue 1. Hold if the patie nt develops infection. 2. Avoid live vaccines while on this medication. 3. No recent serious infections4. No injection site reactions. 5. 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 Continue Humira. 2. Labs ordered today3. Follow up in 4-6 months. 4. She has seen a chiropractor PRN. 5. She takes aspirin PRN.6. Tylenol PRN is ok as directed. 7. She is intolerant/allergic to Tramadol. 8. She takes baclofen PRN Related to Ankylosing Spondylitis 1. H & P consistent with this diagnosis. 2. Encourage aerobic activity and sleep hygiene.3. If she has not had a sleep study/consultation consider getting this done. 4. She does not take NSAIDs regularly due to history of stomach ulcers. 5. She will follow up with us in 4-6 months.6. Weight loss would be helpful. 8. She has seen a chiropractor 9. She takes gabapentin per her PCP10. She lists that she is allergic to [id number]. She lists that she is allergic to Tramadol. 12. Continue Baclofen PRN. Refill today Related to Fibromyalgia 1. Tylenol PRN is fi ne as directed. 2. She lists that she is allergic/intolerant of Tramadol. 3. Weight loss would be helpful. 4. She has seen a chiropractor. 5. She takes aspirin PRN Related to Generalized osteoarthritis Lifestyle education regarding di et Related to Body mass index [BMI] 40.0-44.9, adult 1. H & P consistent with this diagnosis. 2. Encourage aerobic activity and sleep hygiene.3. If she has not had a sleep study/consultation consider getting this done. 4. She does not take NSAIDs regularly due to history of stomach ulcers. 5. She will follow up with us in 4-6 months.6. Weight loss would be helpful. 8. She has seen a chiropractor 9. She has taken/tried . She lists that she is allergic to [id number]. She lists that she is allergic to Tramadol. 12. She has tried muscle relaxers like Baclofen PRN. Refill today Related to Fibromyalgia 1. Hold if the patie nt develops infection. 2. Avoid live vaccines while on this medication. 3. No recent serious infections4. No injection site reactions. 5. Also hold this medication perioperatively if the patient is going to have a surgical procedure Related to Immunosuppression 1. Tylenol PRN is fi ne as directed. 2. She lists that she is allergic/intolerant of Tramadol. 3. Weight loss would be helpful. 4. She has seen a chiropractor. 5. She does not take NSAIDs regularly due to history of stomach ulcers Related to Generalized osteoarthritis 1. Continue Humira. 2. Labs ordered today3. Follow up in 4-6 months. 4. She has seen a chiropractor PRN. 5. She avoids NSAIDS. 6. Tylenol PRN is ok as directed. 7. She is intolerant/allergic to Tramadol. 8. She has tried taking muscle relaxers PRN9. We gave her an educational handout on hand arthritis to take home and review Related to Ankylosing Spondylitis Lifestyle education regarding di et Related to Body mass index [BMI] 40.0-44.9, adult Update hepatitis and QuantiFERON TB. Related to Fatigue 1. Tylenol PRN is fi ne as directed. 2. She lists that she is allergic/intolerant of Tramadol. 3. Weight loss would be helpful. 4. She has seen a chiropractor. 5. She does not take NSAIDs regularly due to history of stomach ulcers6. She has more left shoulder pain and limited ROM in both surgeries. Related to Generalized osteoarthritis 1. Continue Humira. 2. Labs ordered today. I will give her a lab order.3. Follow up in 4-6 months. 4. She has seen a chiropractor PRN. 5. She avoids NSAIDS. 6. Tylenol PRN is ok as directed. 7. She is intolerant/allergic to Tramadol. 8. She has tried taking muscle relaxers PRN9. I will mail her an educational handout. Related to Ankylosing Spondylitis 1. H & P consistent with this diagnosis. 2. Encourage aerobic activity and sleep hygiene.3. If she has not had a sleep study/consultation consider getting this done. 4. She does not take NSAIDs regularly due to history of stomach ulcers. 5. She will follow up with us in 4-6 months.6. Weight loss would be helpful. 8. She has seen a chiropractor 9. She has taken/tried [id number]. She lists that she is allergic to [id number]. She lists that she is allergic to Tramadol. 12. She has tried muscle relaxers like Baclofen PRN. Refill today Related to Fibromyalgia 1. Hold if the patie nt develops infection. 2. Avoid live vaccines while on this medication. 3. No recent serious infections4. No injection site reactions. 5. Also hold this medication perioperatively if the patient is going to have a surgical procedure Related to Immunosuppression Lifestyle education regarding di et Related to Body mass index [BMI] 40.0-44.9, adult 1. Hold if the patie nt develops infection. 2. Avoid live vaccines while on this medication. 3. No recent serious infections4. No injection site reactions. 5. Also hold this medication perioperatively if the patient is going to have a surgical procedure Related to Immunosuppression 1. Tylenol PRN is fi ne as directed. 2. She lists that she is allergic/intolerant of Tramadol. 3. Weight loss would be helpful. 4. She has seen a chiropractor. 5. She does not take NSAIDs regularly due to history of stomach ulcers Related to Generalized osteoarthritis 1. Continue Humira. 2. Labs ordered today3. Follow up in 4-6 months. 4. She has seen a chiropractor PRN. 5. She avoids NSAIDS. 6. Tylenol PRN is ok as directed. 7. She is intolerant/allergic to Tramadol. 8. She has tried taking muscle relaxers PRN9. We will mail her a lab order and educational handout 10. This visit today was conducted on the telephone per the patient's request. We spent approximately 22-23 minutes today talking/working with them Related to Ankylosing Spondylitis 1. H & P consistent with this diagnosis. 2. Encourage aerobic activity and sleep hygiene.3. If she has not had a sleep study/consultation consider getting this done. 4. She does not take NSAIDs regularly due to history of stomach ulcers. 5. She will follow up with us in 4-6 months.6. Weight loss would be helpful. 8. She has seen a chiropractor 9. She has taken/tried [id number]. She lists that she is allergic to [id number]. She lists that she is allergic to Tramadol. 12. She has tried muscle relaxers like Baclofen PRN. Refill today Related to Fibromyalgia Lifestyle education regarding di et Related to Body mass index [BMI] 40.0-44.9, adult 1. Hold if the patie nt develops infection. 2. Avoid live vaccines while on this medication. 3. No recent serious infections4. No injection site reactions. 5. Also hold this medication perioperatively if the patient is going to have a surgical procedure Related to Immunosuppression 1. Tylenol PRN is fi ne as directed. 2. She lists that she is allergic/intolerant of Tramadol. 3. Weight loss would be helpful. 4. She has seen a chiropractor. 5. She does not take NSAIDs regularly due to history of stomach ulcers Related to Generalized osteoarthritis 1. Continue Humira. 2. Labs ordered today3. Follow up in 4-6 months. 4. She has seen a chiropractor PRN. 5. She avoids NSAIDS. 6. Tylenol PRN is ok as directed. 7. She is intolerant/allergic to Tramadol. 8. She has tried taking muscle relaxers PRN Related to Ankylosing Spondylitis 1. H & P consistent with this diagnosis. 2. Encourage aerobic activity and sleep hygiene.3. If she has not had a sleep study/consultation consider getting this done. 4. She does not take NSAIDs regularly due to history of stomach ulcers. 5. She will follow up with us in 4-6 months.6. Weight loss would be helpful. 8. She has seen a chiropractor 9. She is on [id number]. She lists that she is allergic to [id number]. She lists that she is allergic to Tramadol. 12. She has tried muscle relaxers like Baclofen PRN. Refill today Related to Fibromyalgia Lifestyle education regarding di et Related to Body mass index [BMI]40.0-44.9, adult 1. H & P consistent with this diagnosis. 2. Encourage aerobic activity and sleep hygiene.3. If she has not had a sleep study/consultation consider getting this done. 4. She does not take NSAIDs regularly due to history of stomach ulcers. 5. She will follow up with us in 4-6 months.6. Weight loss would be helpful. 8. She has seen a chiropractor 9. She is on . She lists that she is allergic to [id number]. She lists that she is allergic to Tramadol. 12. She has tried muscle relaxers like Baclofen PRN. Refill today Related to Fibromyalgia With next lab draw w e will recheck/update the patient's TB and hepatitis status Related to Fatigue 1. Hold if the patie nt develops infection. 2. Avoid live vaccines while on this medication. 3. No recent serious infections4. No injection site reactions. 5. Also hold this medication perioperatively if the patient is going to have a surgical procedure Related to Immunosuppression 1. Tylenol PRN is fi ne as directed. 2. She lists that she is allergic/intolerant of Tramadol. 3. Weight loss would be helpful. 4. She has seen a chiropractor. 5. She does not take NSAIDs regularly due to history of stomach ulcers Related to Generalized osteoarthritis 1. Continue Humira. 2. Labs ordered today3. Follow up in 4-6 months. 4. She has seen a chiropractor PRN. 5. She avoids NSAIDS. 6. Tylenol PRN is ok as directed. 7. She is intolerant/allergic to Tramadol. 8. She has tried taking muscle relaxers PRN Related to Ankylosing Spondylitis Lifestyle education regarding di et Related to Body mass index [BMI]40.0-44.9, adult Most recent B-12 was 200's Advised her to restart oral B-12 Related to B12 Deficiency see above. Also most recent vitamin D was low normal (39). Advised her to take 2000 IU vitamin D3 OTC daily. Related to Fatigue 1. Hold if the patie nt develops infection. 2. Avoid live vaccines while on this medication. 3. No recent serious infections4. No injection site reactions. 5. Also hold this medication perioperatively if the patient is going to have a surgical procedure. Related to Immunosuppression 1. Tylenol PRN is fi ne as directed. 2. She lists that she is allergic/intolerant of Tramadol. 3. Weight loss would be helpful. 4. She has seen a chiropractor. 5. She does not take NSAIDs regularly due to history of stomach ulcers. Related to Generalized osteoarthritis 1. Continue Humira. We will give this more time. She says her pain has improved. 2. Labs ordered today3. Follow up in 4-6 months. 4.She sees a chiropractor PRN. 5. She avoids NSAIDS. 6. Tylenol PRN is ok as directed. 7. She is intolerant/allergic to Tramadol. Related to Ankylosing Spondylitis 1. H & P consistent with this diagnosis. 2. Encourage aerobic activity and sleep hygiene.3. If she has not had a sleep study/consultation consider getting this done. 4. She does not take NSAIDs regularly due to history of stomach ulcers. 5. She will follow up with us in 4-6 months.6. Weight loss would be helpful. 8. She has seen a chiropractor regularly. 9. She is on gabapentin 3000 mg TID. PCP now writing this . 10. She lists that she is allergic to [id number]. She lists that she is allergic to Tramadol. 12. Try baclofen for muscle spasms Related to Fibromyalgia 1. Tylenol PRN is fi ne as directed. 2. She lists that she is allergic/intolerant of Tramadol. 3. Weight loss would be helpful. 4. She has seen a chiropractor. 5. She does not take NSAIDs regularly due to history of stomach ulcers. Related to Generalized osteoarthritis 1. H & P consistent with this diagnosis. 2. Encourage aerobic activity and sleep hygiene.3. If she has not had a sleep study/consultation consider getting this done. 4. She does not take NSAIDs regularly due to history of stomach ulcers. 5. She will follow up with us in 4-6 months.6. Weight loss would be helpful. 8. She has seen a chiropractor regularly. 9. She is on gabapentin 3000 mg TID. . 10. She lists that she is allergic to [id number]. She lists that she is allergic to Tramadol. 12. She says that she is disabled. 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 I do not do any type of functional assessment/evaluation. I have no idea how long she can or cannot sit, stand, walk, etc. I do not know how much she can lift, pull, push, etc. We do not do these kinds of tests. I encourage patients with fibromyalgia to be active. Activity is thought to improve myofascial pain. Related to Fibromyalgia 1. Continue Humira. We will give this more time. She says her pain has improved. 2. We will mail her a lab order and educational handout. 3. Follow up in 4-6 months. 4. Time spent on this encounter was 25 minutes. 5. She avoids NSAIDS. 6. Tylenol PRN is ok as directed. 7. She is intolerant/allergic to Tramadol. 8. She sees a chiropractor PRN. Related to Ankylosing Spondylitis 1. Hold if the patie nt develops infection. 2. Avoid live vaccines while on this medication. 3. No recent serious infections4. No injection site reactions. 5. Also hold this medication perioperatively if the patient is going to have a surgical procedure. Related to Immunosuppression 1. H & P consistent with this diagnosis. 2. Encourage aerobic activity and sleep hygiene.3. If she has not had a sleep study/consultation consider getting this done. 4. Handout on fibromyalgia given to her to take home and review. 5. She will follow up with us in 3-4 months.6. Weight loss would be helpful. 8. She has seen a chiropractor regularly. 9. She is on gabapentin 300 mg BID. I am going to try increasing her dose to 300 mg TID. Risks and benefits reviewed. 10. She lists that she is allergic to [id number]. She lists that she is allergic to Tramadol. 12. She says that she is disabled. 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 I do not do any type of functional assessment/evaluation. I have no idea how long she can or cannot sit, stand, walk, etc. I do not know how much she can lift, pull, push, etc. We do not do these kinds of tests. I encourage patients with fibromyalgia to be active. Activity is thought to improve myofascial pain.13. She does not take NSAIDs regularly due to history of stomach ulcers. Related to Fibromyalgia We will evaluate her for autoimmune disease/inflammatory arthritis. Related to FH: Rheumatoid Arthritis 1. We will evaluate for autoimmune conditions. 2. I suspect she has osteoarthritis and fibromyalgia. 3. Her pain is long standing. Related to Arthralgia Labs and x-rays to e valuate for autoimmune conditions. We usually contact patients with these results within 10-14 business days. Related to Fatigue 1. Tylenol PRN is fi ne as directed. 2. She lists that she is allergic/intolerant of Tramadol. 3. Weight loss would be helpful. 4. She sees a chiropractor. 5. I gave her a handout on osteoarthritis to take home and review. 6. She does not take NSAIDs regularly due to history of stomach ulcers. Related to Generalized osteoarthritis Lifestyle education regarding di et Related to Body mass index (BMI) 40.0-44.9, adult Assessments Type Assessment Date No Information Patient Care Teams Name Effective Dates (start - stop) Status Members No Information
--- NOTE | 2023-12-04 12:12 | XR_ITS ---
FINAL REPORT CLINICAL HISTORY: Lt Shoulder Pain. follow up fx COMPARISON: 11/06/2023 FINDINGS: LEFT SHOULDER 3 views of the left shoulder were obtained. There is a mildly displaced transverse fracture through the humeral surgical neck, there may be callus formation along the margins. There is widening of the subacromial space measuring 2.3 cm. There is mild superior subluxation of the humeral head. There is a defect in the bony glenoid probably sequela from subacute fracture. IMPRESSION: Surgical neck and bony glenoid fractures as above. Reviewed, Interpreted and Dictated by Carlos Craven MD Transcribed by FUENTES Larose Authenticated and . [facility]
== END 2023-12-04 23:59 | disposition home or self-care (01) ==
LOC: RAD 12:08
PROVIDERS: PCP Internal Medicine Adolescent Medicine; Visit Provider Orthopaedic Surgery
DX: M25.512 Pain in left shoulder (principal); S42.202A Unspecified fracture of upper end of left humerus, initial encounter for closed fracture
CPT/HCPCS: 73030

== ENCOUNTER 2024-01-22 12:19 | Outpatient (CLI) | payer MEDICARE, SELFPAY ==
--- NOTE | 2024-01-22 12:24 | XR_ITS ---
FINAL REPORT CLINICAL HISTORY: left shoulder fx COMPARISON: 12/04/2023 FINDINGS: LEFT SHOULDER 4 views demonstrate no acute fracture or dislocation. There is a subacute to chronic fracture of the left humeral head and neck which is not significantly changed since the prior exam of November 2023. This may represent a delayed union or a nonunion. Mild to moderate degenerative changes present. The visualized bony structures are well aligned. No soft tissue abnormality is seen. IMPRESSION: Subacute to chronic fracture of the left humeral head and neck, not significantly changed since November 2023. This may represent a delayed union or a nonunion. Reviewed, Interpreted and Dictated by Jake Mcgregor III, MD Transcribed by Rosaura Beckford Authenticated and . [facility]
== END 2024-01-22 23:59 | disposition home or self-care (01) ==
LOC: RAD 12:21
PROVIDERS: PCP Internal Medicine Adolescent Medicine; Visit Provider Orthopaedic Surgery
DX: M25.512 Pain in left shoulder; S42.202D Unspecified fracture of upper end of left humerus, subsequent encounter for fracture with routine healing
CPT/HCPCS: 73030

== ENCOUNTER 2024-01-28 11:32 | Outpatient (CLI) | payer MEDICARE, SELFPAY ==
[2024-01-28 12:26] LABS: Basophils # 0.1 K/mm3 (0-0.2); Basophils % 0.7 % (0.1-2.0); Eosinophils # 0.6 K/mm3 (0.0-0.4); Eosinophils % 5.5 % (0.1-12.0); Hemoglobin 14.4 g/dL (12.2-16.2); Lymphocytes # 2.2 K/mm3 (0.7-4.5); Lymphocytes % 20.9 % (10-50); Mean Corpuscular HGB Conc 32.6 g/dL (31.8-35.4); Mean Corpuscular Hemoglobin 30.4 pg (27.0-31.2); Mean Corpuscular Volume 93.1 fl (81-99); Monocytes # 0.4 K/mm3 (0.1-1.0); Monocytes % 3.9 % (1.7-9.3); Neutrophils # 7.3 K/mm3 (1.8-7.8); Neutrophils % 68.9 % (37.0-80.0); Platelet Count 262 K/mm3 (142-424); Red Blood Count 4.72 M/mm3 (4.20-5.40); Red Cell Distribution Width 15.8 % (11.5-17.5); White Blood Count 10.5 K/mm3 (4.8-10.8)
[2024-01-28 13:06] LABS: Hemoglobin A1C 5.7 % (4.0-6.0)
[2024-01-28 13:14] LABS: Alanine Aminotransferase 31 U/L (12-78); Albumin Level 3.8 g/dl (3.5-5.0); Albumin/Globulin Ratio 1.1 (1.1-1.8); Alkaline Phosphatase 89 U/L (38-126); Anion Gap 13.2 mEq/L (5-15); Aspartate Amino Transferase 40 U/L (14-36); Bilirubin,Total 0.7 mg/dl (0.2-1.3); Blood Urea Nitrogen 11 mg/dl (7-17); Calcium 9.8 mg/dl (8.4-10.2); Carbon Dioxide 28 mmol/L (22.0-30.0); Chloride 104 mmol/L (98-107); Erythrocyte Sedimentation Rate 41 mm/hr (0-30); Estimated Glomerular Filt Rate 71 ml/min (>60); GFR (African American) 86 ML/MIN (>60); Globulin 3.4 g/dL (1.3-3.2); Glucose 128 mg/dl (74-100); Potassium 4.2 mmoL/L (3.5-5.1); Sodium 141 mmol/L (136-145); Total Protein,Serum 7.2 g/dl (6.3-8.2)
[2024-01-28 13:16] LABS: Chol/HDL Ratio 3.1 (1-3.5); Cholesterol 133 mg/dl (140-200); HDL Cholesterol 43 mg/dl (40-60); Triglycerides 141 mg/dl (30-150); VLDL Cholesterol 28 mg/dL (0-40)
[2024-01-28 13:19] LABS: C-Reactive Protein 4.8 mg/L (0-4)
[2024-01-28 13:31] LABS: 25-OH Vitamin D, Total 48.2 ng/mL (30-100)
[2024-01-28 13:47] LABS: Thyroid Stimulating Hormone 0.06 uIU/mL (0.465-4.68)
[2024-01-28 14:06] LABS: Vitamin B12 839 pg/mL (239-931)
[2024-01-29 10:41] LABS: HBsAg Screen Negative (Negative); HCV Ab Non Reactive (Non Reactive); Hep A Ab, IGM Negative (Negative); Hep B Core Ab, IgM Negative (Negative)
[2024-01-30 17:34] LABS: QuantiFERON-TB Gold Plus Negative (Negative)
== END 2024-01-28 23:59 | disposition home or self-care (01) ==
LOC: LAB 11:33
PROVIDERS: Internal Medicine; PCP Internal Medicine Adolescent Medicine; Visit Provider Internal Medicine Adolescent Medicine
DX: D84.821 Immunodeficiency due to drugs (principal); M15.9 Polyosteoarthritis, unspecified; M45.9 Ankylosing spondylitis of unspecified sites in spine; M79.7 Fibromyalgia; R53.83 Other fatigue; E11.42 Type 2 diabetes mellitus with diabetic polyneuropathy; E03.9 Hypothyroidism, unspecified; Z79.4 Long term (current) use of insulin; Z79.84 Long term (current) use of oral hypoglycemic drugs; E66.9 Obesity, unspecified; Z68.37 Body mass index [BMI] 37.0-37.9, adult
CPT/HCPCS: 36415; 80053; 80061; 80074; 82306; 82607; 83036; 84443; 85025; 85651; 86140; 86480

== ENCOUNTER 2024-02-19 12:29 | Outpatient (CLI) | payer MEDICARE, SELFPAY ==
--- NOTE | 2024-02-19 12:41 | XR_ITS ---
FINAL REPORT CLINICAL HISTORY: lt shoulder pain COMPARISON: 01/22/2024 FINDINGS: LEFT SHOULDER Two views demonstrate a subacute to chronic fracture of the humeral head and neck, with delayed union or nonunion. The joint spaces appear normal. The alignment of the fracture fragments is stable when compared to the prior exam. Mild degenerative change is noted in the left shoulder. No soft tissue abnormality is seen. IMPRESSION: Subacute to chronic fracture of the humeral neck and head, with delayed union or nonunion. Reviewed, Interpreted and Dictated by Jake Mcgregor III, MD Transcribed by Rosaura Beckford Authenticated and [facility]
== END 2024-02-19 23:59 | disposition home or self-care (01) ==
LOC: RAD 12:30
PROVIDERS: PCP Internal Medicine Adolescent Medicine; Visit Provider Orthopaedic Surgery
DX: S42.202A Unspecified fracture of upper end of left humerus, initial encounter for closed fracture (principal); M25.512 Pain in left shoulder
CPT/HCPCS: 73030

== ENCOUNTER 2024-03-02 07:29 | Outpatient (CLI) | payer MEDICARE, SELFPAY ==
--- NOTE | 2024-03-02 07:31 | MR_ITS ---
FINAL REPORT TECHNIQUE: Multiplanar MR without contrast CLINICAL HISTORY: LOW BACK PAIN. RIGHT LEG PAIN, NUMBNESS AND TINGLING FINDINGS: Sagittal images show normal vertebral height. Alignment is normal. Marrow signal pattern is unremarkable. T12-L1: Unremarkable. L1-2: Mild annular disc bulge. L2-3: Mild annular disc bulge. L3-4: Unremarkable. L4-5: Moderate annular disc bulge and mild facet arthropathy. L5-S1: Mild annular disc bulge and mild facet arthropathy. IMPRESSION: Multilevel degenerative disc disease as above. Reviewed, Interpreted and Dictated by Brianna Eubanks MD Transcribed by Rosario Waters Authenticated and . [facility]
--- NOTE | 2024-03-02 08:35 | CT_ITS ---
FINAL REPORT TECHNIQUE: Oral and IV contrast enhanced exam. This study was performed with techniques to keep radiation doses as low as reasonably achievable (ALARA). Individualized dose reduction techniques using automated exposure control or adjustment of mA and/or kV according to the patient's size were employed. CLINICAL HISTORY: Generalized abdominal pain FINDINGS: Abdomen: No acute density is seen within the lung bases. The gallbladder is surgically absent. There is a lower pole right renal cyst. Remaining solid abdominal organs are unremarkable. No bowel obstruction is present. There is no free air. No fluid collection is seen. There is no adenopathy. Pelvis: The appendix is not visualized and was possibly removed at the time of hysterectomy. No bowel wall thickening is present. There is no free fluid. No pelvic mass is seen. IMPRESSION: No acute process. Reviewed, Interpreted and Dictated by Brianna Eubanks MD Transcribed by Rosario Waters Authenticated and [facility]
[2024-03-02 09:17] LABS: Blood Urea Nitrogen 17 mg/dl (7-17); Estimated Glomerular Filt Rate 99 ml/min (>60); GFR (African American) 120 ML/MIN (>60)
[2024-03-02] MEDS: IOPAMIDOL-370 (76%);100ML BOTTLE 75 ML IV (10:12)
[2024-03-02] MEDS: BARIUM SULFATE(READI-CAT2);450ML BOTTLE 450 ML PO (10:12)
[2024-03-02] MEDS: SODIUM CHLORIDE 0.9% 10ML SYR (RAD ONLY) 10 ML IV (10:12)
== END 2024-03-02 23:59 | disposition home or self-care (01) ==
LOC: RAD 07:30
PROVIDERS: PCP Internal Medicine Adolescent Medicine; Visit Provider Internal Medicine Adolescent Medicine
DX: M54.42 Lumbago with sciatica, left side (principal); K75.81 Nonalcoholic steatohepatitis (NASH); R10.84 Generalized abdominal pain
CPT/HCPCS: 36415; 72148; 74177; 82565; 84520; Q9967

== ENCOUNTER 2024-03-10 12:53 | Outpatient (CLI) | payer MEDICARE, SELFPAY ==
--- NOTE | 2024-03-10 12:59 | XR_ITS ---
FINAL REPORT CLINICAL HISTORY: RIGHT HIP PAIN COMPARISON: None FINDINGS: RIGHT HIP Two views of the right hip with an AP view of the pelvis demonstrate no acute fracture or dislocation. There are mild hypertrophic changes of the acetabular margin consistent with osteoarthritis. The joint spaces are preserved. The visualized bony structures are well aligned. No soft tissue abnormality is seen. IMPRESSION: Mild hypertrophic changes of osteoarthritis. Reviewed, Interpreted and Dictated by Carlos Craven MD Transcribed by Conchita Rivas Authenticated and [facility]
== END 2024-03-10 23:59 | disposition home or self-care (01) ==
LOC: RAD 12:54
PROVIDERS: PCP Internal Medicine Adolescent Medicine; Visit Provider Internal Medicine Adolescent Medicine
DX: M25.551 Pain in right hip (principal)
CPT/HCPCS: 73502

== ENCOUNTER 2024-03-31 12:50 | Outpatient (POV) | payer MEDICARE, SELFPAY ==
[2024-03-31 12:54] VITALS: BP 140/72; PULSE 81; RESP 18; O2SAT 96; BMI 39.1
--- NOTE | 2024-03-31 13:21 | A.OFFVIS_ITS ---
HPI Data of Consult Patient: new to practice Consult date: 03/31/24 Requesting Physician: Judith Kelley APRN Primary Care Provider: Ezra Leyva MD Consult Narrative Reason for consult: Low back pain, right hip pain, right ankle pain, shoulder, arm pain History of present illness: Ms. Byrd is a 68 year old female who presents today as a new patient. She is a referral from Dr. Leyva's office. Today she rates her pain a 8 out of 10. Patient states her pain is all in multiple locations including her low back and right hip as well as her right ankle and shoulder and arm from a fracture. Patient does state that she has had low back pain for about 30 years and that is not really new. She does state that she just recently had a fall in October causing her to break her left arm and shoulder and that it was nondisplaced not requiring surgery. She states that Dr. Shearer had was wanting it to heal on its own however she still is having chronic pain in this location and states that it is still not healed. Patient does state that she is scheduled to see him here soon. Patient does state that she also has right ankle pain related to an old injury where she hyperextended her Achilles. Patient does states she is currently in physical therapy for that however has not really noticed significant relief. Patient does state what bothers her the most right now is the low back/right hip/side pain. Patient states it is constant and feels like a toothache with occasional cramping. Patient does state that it will occasionally feel like bugs are crawling on her . She states that overall it is just uncomfortable and does interfere with her ability perform activities of daily living such as cooking and cleaning. Patient states it is affecting her sleep and that she is interested in any help that we may be able to provide. Patient denies any prior back surgery or injection history. Patient does currently take aspirin 325 mg 4 times a day, gabapentin, baclofen and Humira. Patient does state that she has severe arthritis and sees a specialist in [place]. Patient does state that she has to be very cautious with what medications she takes due to prior liver issues. 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 Patient has tried conservative treatment currently including oral medications, heat and ice and topicals including IcyHot with minimal relief. Patient does continue to do at home exercising and stretching that is physician guided from her physical therapist with no additional change. Her Manjit has been reviewed and is appropriate. CC: Judith Kelley APRN [facility] Disclaimer: The information contained in this section may have been updated after the patient was seen, as this information can be updated by other users. Medical History Kidney stone Chronic kidney disease Urinary tract infection Pneumonia History of COVID-19 Endometriosis Pelvic inflammatory disease (PID) History of stroke Osteoarthritis Fibromyalgia History of diverticulitis Irritable bowel syndrome (IBS) History of gastroesophageal reflux (GERD) Hypothyroid Diabetes mellitus, type 2 Hyperlipidemia Hypertension History of anemia Surgical History H/O thyroidectomy H/O colonoscopy H/O shoulder surgery History of hysterectomy History of tonsillectomy History of cholecystectomy Family History Father Throat cancer Family history of abdominal aortic aneurysm Mother Pancreatic cancer Family history of diabetes mellitus type II Family history of stroke Grandfather Family history of myocardial infarction Social History Smoking Status: Never smoker alcohol intake: never substance use type: denies use current occupational status: disabled Travel in the last 8 weeks: None household members: spouse housing: house caffeine: Yes (daily) Review of Systems Review of Systems Review of systems:: pertinent systems reviewed and negative unless documented below Review of systems (narrative): Review of Systems: General: No recent weight changes, no fever, no sleep disturbances Respiratory: No cough, no shortness of air, no recurring pulmonary infections Cardiovascular/peripheral vascular: No chest pain, no palpitations, no edema, no shortness of breath Gastrointestinal: No new onset incontinence, normal bowel movements reported Genitourinary: No new onset incontinence Musculoskeletal: Low back pain, right hip pain, right groin pain Psychiatric: [Normal mood/affect] Neurological: [Denies weakness in extremities], [denies balance issues] Meds Home Medications and Allergies Home Medications ?Medication ?Instructions ?Recorded ?Confirmed ?Type calcium carbonate 600 mg-vitamin 1 cap PO DAILY Supplement 10/23/17 02/19/24 History D3 5 mcg (200 unit) capsule (Calcium 600 + D(3)) cyanocobalamin (vitamin B-12) 1,000 mcg PO DAILY Supplement 10/23/17 02/19/24 History 1,000 mcg tablet (Vitamin B-12) docusate sodium 100 mg capsule 300 mg PO QHS constipation 10/23/17 02/19/24 History (Dulcolax Stool Softener (docusate)) gabapentin 300 mg capsule 300 mg PO BID Pain 90 days 10/23/17 02/19/24 History insulin human U-100 NPH-regulr 14 unit SUB-Q QAM dm 10/23/17 02/19/24 History 70-30 mix 100 unit/mL subcutaneous susp (Novolin 70/30 U-100 Insulin) levothyroxine 50 mcg tablet 50 mcg PO DAILY thyroid 90 days 10/23/17 02/19/24 History losartan 50 mg tablet 50 mg PO DAILY bp 90 days 10/23/17 02/19/24 History metformin 500 mg tablet 1,000 mg PO BID Diabetes 90 days 10/23/17 02/19/24 History pyridoxine (vitamin B6) 100 mg 100 mg PO HS Supplement 10/23/17 02/19/24 History tablet (Vitamin B-6) rosuvastatin 10 mg tablet 10 mg PO HS Cholesterol 90 days 08/20/18 02/19/24 History insulin detemir U-100 100 unit/mL 15 unit SQ HS dm 12/10/18 02/19/24 History (3 mL) subcutaneous pen loratadine-pseudoephedrine ER 10 1 each PO HS allergies 12/10/18 02/19/24 History mg-240 mg tablet,extended [id number] potassium 99 mg tablet 99 mg PO HS Supplement 12/10/18 02/19/24 History ferrous sulfate 325 mg (65 mg 325 mg PO DAILY Supplement 01/25/19 02/19/24 History iron) tablet pantoprazole 40 mg tablet,delayed 40 mg PO BID GERD 01/25/19 02/19/24 History release mupirocin 2 % topical ointment 1 ea topical DAILY . 11/05/21 02/19/24 History albuterol sulfate 2.5 mg/3 mL 2.5 mg inhalation QID PRN asthma 08/16/22 02/19/24 History (0.083 %) solution for nebulization aspirin 325 mg capsule 325 mg PO DAILY Blood thinner 08/16/22 02/19/24 History baclofen 10 mg tablet 10 mg PO DAILY Pain 08/16/22 02/19/24 History citicoline 500 mg capsule 1 mg PO DAILY . 08/16/22 02/19/24 History (Cognitive Health) clobetasol 0.05 % topical cream 1 applic topical HS . 08/16/22 02/19/24 History multivitamin 1 tab PO DAILY Supplement 08/16/22 02/19/24 History peg 3350-electrolytes 236 240 ml PO Q10M prep 08/16/22 02/19/24 History gram-22.74 gram-6.74 gram-5.86 gram solution (Golytely) pumpkin seed extract-soy germ 300 1 cap PO DAILY Supplement 08/16/22 02/19/24 History mg capsule (Azo Bladder Control) semaglutide 7 mg tablet (Rybelsus) 7 mg PO DAILY . 08/16/22 02/19/24 History hydrocodone 5 mg-acetaminophen 325 1 tab PO Q6H PRN pain 3 days #12 10/22/23 02/19/24 Rx mg tablet tabs diazepam 5 mg tablet 5 mg PO DAILY 02/19/24 02/19/24 History insulin glargine U-300 conc 300 30 unit SQ HS 02/19/24 02/19/24 History unit/mL (3 mL) subcutaneous pen (Toujeo Max U-300 SoloStar) ropinirole 0.5 mg tablet 0.5 mg PO BID 02/19/24 02/19/24 History New Prescriptions to Start Prescriptions: Allergies Allergy/AdvReac Type Severity Reaction Status Date / Time clonazepam Allergy Severe I-HIVES Verified 02/19/24 13:15 diazepam Allergy Severe I-HIVES Verified 02/19/24 13:15 meperidine Allergy Severe HEMORRHAGE\ Verified 02/19/24 13:15 Penicillins Allergy Severe COMA Verified 02/19/24 13:15 tegaserod [From Zelnorm] Allergy Intermediate I-HIVES Verified 02/19/24 13:15 promethazine Allergy Mild HIVES,NAUSE Verified 02/19/24 13:15 A tramadol Allergy Mild I-HIVES Verified 02/19/24 13:15 canagliflozin [From Invokana] Allergy Unknown Verified 02/19/24 13:15 capsaicin [From Capzasin] Allergy Unknown Blister Verified 02/19/24 13:15 duloxetine [From Cymbalta] Allergy Unknown Verified 02/19/24 13:15 menthol [From Capzasin] Allergy Unknown Blister Verified 02/19/24 13:15 metformin [From Janumet] Allergy Unknown Verified 02/19/24 13:15 sitagliptin [From Janumet] Allergy Unknown Verified 02/19/24 13:15 empagliflozin Allergy Hives Verified 02/19/24 13:15 [From Jardiance] lisinopril AdvReac Cough Verified 02/19/24 13:15 CRANBERRIES Allergy Unknown I-HIVES Uncoded 02/19/24 13:15 Objective Narrative: Physical Exam: General: Alert and oriented x3, no acute distress, pleasant and cooperative Lungs: Respirations even and unlabored, symmetrical chest expansion Eyes: PERRL Musculoskeletal: Flexion and extension of lumbar [spine] somewhat guarded secondary to pain, [antalgic gait noted] point tenderness along right SI with positive right Katherin's, Sam's, Gaenslen's, compression and distraction exam Neurological: Speech clear, no gross sensory deficit Additional findings Additional findings: FINDINGS: Sagittal images show normal vertebral height. Alignment is normal. Marrow signal pattern is unremarkable. T12-L1: Unremarkable. L1-2: Mild annular disc bulge. L2-3: Mild annular disc bulge. L3-4: Unremarkable. L4-5: Moderate annular disc bulge and mild facet arthropathy. L5-S1: Mild annular disc bulge and mild facet arthropathy. IMPRESSION: Multilevel degenerative disc disease as above. Reviewed, Interpreted and Dictated by Brianna Eubanks MD Transcribed by Rosario Waters Authenticated and [facility] Assessment and Plan *Assessment and plan (1) Sacroiliitis: Status: Acute Category: Medical Code(s): M46.1 - Sacroiliitis, not elsewhere classified Plan Patient is experiencing worsening pain in her low back along the right side with point tenderness at the right SI and a positive right Katherin's, Sam's, Ga enslen's, compression and distraction exam. I have discussed with the patient that she may benefit from a right SI injection. Risk and benefits were discussed with the patient and she would like to proceed forward with this plan of care. Patient has tried and failed conservative therapy including current physical therapy and continued at home stretching exercise for longer than 6 weeks. Patient will be scheduled for a right SI injection under fluoroscopy. Patient has been instructed to contact the clinic with any concerns before the next appointment. Dr. Jones has reviewed this note and agrees with this plan of care. This note was dictated using voice recognition software and make contain errors or omissions. All injections are used with Lidocaine or Bupivacaine and Depo Medrol.
== END 2024-03-31 23:59 | disposition home or self-care (01) ==
LOC: SC.PAIN 12:51
PROVIDERS: PCP Internal Medicine Adolescent Medicine; Visit Provider Nurse Practitioner Family
DX: M46.1 Sacroiliitis, not elsewhere classified (principal); Z73.89 Other problems related to life management difficulty; Z79.4 Long term (current) use of insulin; E11.9 Type 2 diabetes mellitus without complications; Z79.899 Other long term (current) drug therapy; Z86.73 Personal history of transient ischemic attack (TIA), and cerebral infarction without residual deficits
CPT/HCPCS: 99202; G0463

== ENCOUNTER 2024-04-13 09:42 | Day surgery (SDC) | payer MEDICARE, SELFPAY ==
[2024-04-13 09:56] VITALS: BP 168/68; PULSE 86; RESP 16; TEMP 36.2; O2SAT 96; BMI 38.6
[2024-04-13 10:09] LABS: POC Glucose,Bedside 248 (70-110)
[2024-04-13] MEDS: BUPIVACAINE 0.25% 10ML INJ 25 MG IJ (10:16)
[2024-04-13] MEDS: LIDOCAINE 1% 5ML PF VIAL 5 ML (10:16)
[2024-04-13] MEDS: methylPREDNISolone ACETATE 80MG/ML VIAL 80 MG (10:16)
[2024-04-13 10:26] VITALS: BP 152/46; PULSE 83; RESP 18; O2SAT 96
--- NOTE | 2024-04-13 10:27 | EXP.PAIN.PRO ---
Procedure Date: 04/13/24 Time: 10:00 Anesthesiologist:: Fortino Jimenez CRNA Complications:: None Pre-procedure Diagnosis:: Right sacroiliitis Post-procedure Diagnosis:: Same Indications for Procedure:: Patient is a pleasant 68-year-old female comes our clinic today for right sacroiliac joint injection of cortisone and local anesthetic. She describes low lumbar back pain off the midline to the right. Also, right posterior hip pain. She reports difficulty transitioning from sitting to standing. Ambulation increases pain. She rates her pain 8/10. Procedure Details:: Procedure: Right sacroliliac joint injection under fluoroscopy Informed consent was obtained and the risk and benefits of the procedure were explained to the patient.~ The patient was taken to the procedure room and noninvasive monitors were placed including noninvasive blood pressure cuff and pulse oximeter.~ The patient was placed prone on the procedure table.~ The~ right hip was cleansed using Betadine as a cleansing solution.~ C-arm fluorosocpy was used to view the right SI joint.~ The skin and subcutaneous tissues were anesthetized using Lidocaine 1.5% and a 25-gauge needle.~ After this, a 22-gauge spinal needle was inserted under fluoroscopic guidance into the inferior aspect of the right SI joint.~ Omnipaque dye was injected and a good spread was seen throughout the joint.~ After this, approximately 5 mL of bupivacaine 0.25% and Depo-Medrol 40 mg was incrementally injected into the sacroiliac joint.~ The patient tolerated the procedure well with no complications.~ The patient was observed in the Pain Clinic, then discharged home neurologically intact.~ Plan and Disposition:: Patient was discharged without incident.
== END 2024-04-13 10:26 | disposition home or self-care (01) ==
PROVIDERS: PCP Internal Medicine Adolescent Medicine; Visit Provider Nurse Anesthetist, Certified Registered
DX: M46.1 Sacroiliitis, not elsewhere classified (principal)
CPT/HCPCS: 27096; 82962; G0260; J1010

== ENCOUNTER 2024-04-20 12:15 | Outpatient (CLI) | payer MEDICARE, SELFPAY ==
--- NOTE | 2024-04-20 12:22 | XR_ITS ---
FINAL REPORT CLINICAL HISTORY: check the healing process COMPARISON: 02/19/2024 FINDINGS: Left shoulder Three views were obtained. Again identified is a fracture of the humeral head and neck. The bony alignment is stable. There is no significant callus formation. There are mild degenerative changes. No other fracture or dislocation is identified. IMPRESSION: No significant healing of the proximal humeral fracture. Reviewed, Interpreted and Dictated by Jake Mcgregor III, MD Transcribed by Jaja Sierra Authenticated and [facility]
== END 2024-04-20 23:59 | disposition home or self-care (01) ==
LOC: RAD 12:16
PROVIDERS: PCP Internal Medicine Adolescent Medicine; Visit Provider Orthopaedic Surgery
DX: S42.202A Unspecified fracture of upper end of left humerus, initial encounter for closed fracture (principal)
CPT/HCPCS: 73030

== ENCOUNTER 2024-05-05 14:22 | Outpatient (POV) | payer MEDICARE, SELFPAY ==
[2024-05-05 14:42] VITALS: BP 166/64; PULSE 82; RESP 16; O2SAT 97; BMI 37.9
--- NOTE | 2024-05-05 14:54 | A.OFFVIS_ITS ---
[facility] Disclaimer: The information contained in this section may have been updated after the patient was seen, as this information can be updated by other users. Medical History Kidney stone Chronic kidney disease Urinary tract infection Pneumonia History of COVID-19 Endometriosis Pelvic inflammatory disease (PID) History of stroke Osteoarthritis Fibromyalgia History of diverticulitis Irritable bowel syndrome (IBS) History of gastroesophageal reflux (GERD) Hypothyroid Diabetes mellitus, type 2 Hyperlipidemia Hypertension History of anemia Surgical History H/O thyroidectomy H/O colonoscopy H/O shoulder surgery History of hysterectomy History of tonsillectomy History of cholecystectomy Family History Father Throat cancer Family history of abdominal aortic aneurysm Mother Pancreatic cancer Family history of diabetes mellitus type II Family history of stroke Grandfather Family history of myocardial infarction Social History Smoking Status: Never smoker alcohol intake: never substance use type: denies use current occupational status: other Travel in the last 8 weeks: None household members: spouse housing: house caffeine: Yes (daily) PM Subjective & Objective Subjective Subjective:: Patient is a pleasant 68-year-old female who presents today for follow-up of rig ht SI injection on 04/13/2024. Patient states that she did have significant relief of at least 85% following this injection and feels like it still helping. She does rate her pain today a 6 out of 10 however states her overall back pain is just a 1 out of 10. Patient does state that she has pain in other areas that are causing most of her issues today. Patient does state that she has a broken arm and still has other areas in her spine that bothers her. Patient does state however with the worst pain now gone it is much more manageable. Her Manjit has been reviewed and is appropriate. Review of Systems: General: No recent weight changes, no fever, no sleep disturbances Respiratory: No cough, no shortness of air, no recurring pulmonary infections Cardiovascular/peripheral vascular: No chest pain, no palpitations, no edema, no shortness of breath Gastrointestinal: No new onset incontinence, normal bowel movements reported Genitourinary: No new onset incontinence Musculoskeletal: Right arm pain Psychiatric: [Normal mood/affect] Neurological: [Denies weakness in extremities], [denies balance issues] Pain at rest (0-10 scale): 6 Objective Objective:: Physical Exam: General: Alert and oriented x3, no acute distress, pleasant and cooperative Lungs: Respirations even and unlabored, symmetrical chest expansion Eyes: PERRL Musculoskeletal: Flexion and extension of cervical [spine] somewhat guarded secondary to pain, [antalgic gait noted] Neurological: Speech clear, no gross sensory deficit Has patient had previous pain injection?: Yes Percent improvement in pain since last injection: 85% Conservative treatment options previously tried: Home exercise plan Length of treatment: Longer than 6 weeks Meds Home Medications and Allergies Home Medications ?Medication ?Instructions ?Recorded ?Confirmed ?Type calcium carbonate 600 mg-vitamin 1 cap PO DAILY Supplement 10/23/17 05/05/24 History D3 5 mcg (200 unit) capsule (Calcium 600 + D(3)) cyanocobalamin (vitamin B-12) 1,000 mcg PO DAILY Supplement 10/23/17 05/05/24 History 1,000 mcg tablet (Vitamin B-12) docusate sodium 100 mg capsule 300 mg PO QHS constipation 10/23/17 05/05/24 History (Dulcolax Stool Softener (docusate)) gabapentin 300 mg capsule 300 mg PO BID Pain 90 days 10/23/17 05/05/24 History insulin human U-100 NPH-regulr 14 unit SUB-Q QAM dm 10/23/17 05/05/24 History 70-30 mix 100 unit/mL subcutaneous susp (Novolin 70/30 U-100 Insulin) levothyroxine 50 mcg tablet 50 mcg PO DAILY thyroid 90 days 10/23/17 05/05/24 History losartan 50 mg tablet 50 mg PO DAILY bp 90 days 10/23/17 05/05/24 History metformin 500 mg tablet 1,000 mg PO BID Diabetes 90 days 10/23/17 05/05/24 History pyridoxine (vitamin B6) 100 mg 100 mg PO HS Supplement 10/23/17 05/05/24 History tablet (Vitamin B-6) rosuvastatin 10 mg tablet 10 mg PO HS Cholesterol 90 days 08/20/18 05/05/24 History insulin detemir U-100 100 unit/mL 15 unit SQ HS dm 12/10/18 05/05/24 History (3 mL) subcutaneous pen loratadine-pseudoephedrine ER 10 1 each PO HS allergies 12/10/18 05/05/24 History mg-240 mg tablet,extended [id number] potassium 99 mg tablet 99 mg PO HS Supplement 12/10/18 05/05/24 History ferrous sulfate 325 mg (65 mg 325 mg PO DAILY Supplement 01/25/19 05/05/24 History iron) tablet pantoprazole 40 mg tablet,delayed 40 mg PO BID GERD 01/25/19 05/05/24 History release mupirocin 2 % topical ointment 1 ea topical DAILY . 11/05/21 05/05/24 History albuterol sulfate 2.5 mg/3 mL 2.5 mg inhalation QID PRN asthma 08/16/22 05/05/24 History (0.083 %) solution for nebulization aspirin 325 mg capsule 325 mg PO DAILY Blood thinner 08/16/22 05/05/24 History baclofen 10 mg tablet 10 mg PO DAILY Pain 08/16/22 05/05/24 History citicoline 500 mg capsule 1 mg PO DAILY . 08/16/22 05/05/24 History (Cognitive Health) clobetasol 0.05 % topical cream 1 applic topical HS . 08/16/22 05/05/24 History multivitamin 1 tab PO DAILY Supplement 08/16/22 05/05/24 History pumpkin seed extract-soy germ 300 1 cap PO DAILY Supplement 08/16/22 05/05/24 History mg capsule (Azo Bladder Control) semaglutide 7 mg tablet (Rybelsus) 7 mg PO DAILY . 08/16/22 05/05/24 History hydrocodone 5 mg-acetaminophen 325 1 tab PO Q6H PRN pain 3 days #12 10/22/23 05/05/24 Rx mg tablet tabs diazepam 5 mg tablet 5 mg PO DAILY 02/19/24 05/05/24 History insulin glargine U-300 conc 300 30 unit SQ HS 02/19/24 05/05/24 History unit/mL (3 mL) subcutaneous pen (Toujeo Max U-300 SoloStar) ropinirole 0.5 mg tablet 0.5 mg PO BID 02/19/24 05/05/24 History New Prescriptions to Start Prescriptions: Allergies Allergy/AdvReac Type Severity Reaction Status Date / Time clonazepam Allergy Severe I-HIVES Verified 04/20/24 13:07 diazepam Allergy Severe I-HIVES Verified 04/20/24 13:07 meperidine Allergy Severe HEMORRHAGE\ Verified 04/20/24 13:07 Penicillins Allergy Severe COMA Verified 04/20/24 13:07 tegaserod [From Zelnorm] Allergy Intermediate I-HIVES Verified 04/20/24 13:07 promethazine Allergy Mild HIVES,NAUSE Verified 04/20/24 13:07 A tramadol Allergy Mild I-HIVES Verified 04/20/24 13:07 canagliflozin [From Invokana] Allergy Unknown Verified 04/20/24 13:07 capsaicin [From Capzasin] Allergy Unknown Blister Verified 04/20/24 13:07 duloxetine [From Cymbalta] Allergy Unknown Verified 04/20/24 13:07 menthol [From Capzasin] Allergy Unknown Blister Verified 04/20/24 13:07 metformin [From Janumet] Allergy Unknown Verified 04/20/24 13:07 sitagliptin [From Janumet] Allergy Unknown Verified 04/20/24 13:07 empagliflozin Allergy Hives Verified 04/20/24 13:07 [From Jardiance] lisinopril AdvReac Cough Verified 04/20/24 13:07 CRANBERRIES Allergy Unknown I-HIVES Uncoded 04/20/24 13:07 Assessment and Plan *Assessment and plan (1) Closed fracture of left proximal humerus: Status: Acute Qualifiers: Encounter type: subsequent encounter Fracture morphology: other fracture Fracture alignment: displaced Fracture healing: with delayed healing Qualified Code(s): S42.292G - Other displaced fracture of upper end of left humerus, subsequent encounter for fracture with delayed healing Category: Medical Code(s): S42.202A - Unspecified fracture of upper end of left humerus, initial encounter for closed fracture Plan Patient has had significant improvement following her SI injection and does not require any additional injection therapy at this time. I will order the patient a compounded cream. Patient will return to clinic in 1 month for reevaluation of symptoms and plan of care. Patient has been instructed to contact the clinic with any concerns before the next appointment. Dr. Jones has reviewed this note and agrees with this plan of care. This note was dictated using voice recognition software and make contain errors or omissions. All injections are used with Lidocaine or Bupivacaine and Depo Medrol.
== END 2024-05-05 23:59 | disposition home or self-care (01) ==
LOC: SC.PAIN 14:23
PROVIDERS: PCP Internal Medicine Adolescent Medicine; Visit Provider Nurse Practitioner Family
DX: S42.292G Other displaced fracture of upper end of left humerus, subsequent encounter for fracture with delayed healing (principal); Z79.899 Other long term (current) drug therapy
CPT/HCPCS: 99212; G0463

== ENCOUNTER 2024-05-13 14:00 | Outpatient (RCR) | payer MEDICARE, SELFPAY ==
--- NOTE | 2024-03-17 11:59 | HMH.PTOPEV ---
PT Outpatient Evaluation Rehab PT Outpatient Evaluation Start: 03/17/24 11:21 Freq: Status: Active Protocol: Document 03/17/24 11:21 ALEXEY (Rec: 03/17/24 11:59 ALEXEY [id number]) E-signed By Rocael Philip, PT Outpatient Therapy Subjective History Subjective History Pt reports h/o chronic right ankle pain since tripping injury ~2 yrs ago. Pt reports previous arthritic diagnosis ' caused this injury to be worse ', pt reports achilles pain initially, however, right ankle pain has progressed to a more global issue. Pt now reports pain on top of right foot and ankle, pain in the heel, arch of the foot, and soreness into the calf muscle, as well as swelling, weakness , and stiffness. Pt reports spondyloarthritis 'which is arthritis in my muscles, and it why this issue keeps giving me trouble.' PMH: left humerus fx, spondyloarthritis, DM. New diagnosis of cancer in past 12 No months? Chief Complaint Pain,Stiff,Swelling,Weakness Symptom Type Ache,Throb,Sharp,Dull,Stabbing ,Burning Symptoms Relieved By Rest/Positioning Symptoms Aggravated By Standing,Physical Activity, Walking Prior Functional Limitations Housework,Standing,Walking Current Functional Limitations Housework,Standing,Squatting, Walking,Stairs Symptom Description Constant but Variable Level of pain today (0-10) 3 Pain scale - at its best (0-10) 3 Pain scale - at its worst (0-10) 10 Ankle/Foot Eval Gait Observation General Gait Pattern Observation Antalgic Gait,Wide Based Gait Assistive Device Ambulation Assistive Device None Palpation Tenderness right Ankle/Foot Palpation Findings Tenderness Ankle/Foot Palpation Overall Comment 3/4 anterior tibialis tendon, achilles tendon, plantar facia insertion ROM Ankle/Foot Dorsiflexion w/Knee Extended 0-10 Active Range Motion (degrees) Ankle/Foot Plantar Flexion Active Range 0-40 of Motion (degrees) Ankle/Foot Eversion Active Range of 0-25 Motion (degrees) Ankle/Foot Inversion Active Range of 0-20 Motion (degrees) MMT Ankle Dorsiflexion Strength Grade 4 Good Ankle Plantarflexion Strength Grade 4 Good Foot Eversion Strength Grade 3+ Fair+ Foot Inversion Strength Grade 3+ Fair+ Special Tests Ankle Anterior Drawer Test Negative Right Ankle Inversion (supination) Test Negative Right Ankle Posterior Drawer Test Negative Right Lower Extremity Functional Index Activities Today, do you or would you have any difficulty at all with: a.Any of your usual work, housework or Moderate difficulty school activities b. Your usual hobbies, recreational or Quite a bit of difficulty sporting activities c. Getting into or out of the bath A little bit of difficulty d. Walking between rooms Moderate difficulty e. Putting on your shoes or socks A little bit of difficulty f. Squatting Extreme difficulty or unable to perform activity g. Lifting an object, like a bag of Quite a bit of difficulty groceries from the floor h. Performing light activities around Quite a bit of difficulty your home i. Performing heavy activities around Quite a bit of difficulty your home j. Getting into or out of a car Moderate difficulty k. Walking 2 blocks Quite a bit of difficulty l. Walking a mile Extreme difficulty or unable to perform activity m. Going up or down 10 stairs (about 1 Extreme difficulty or unable flight of stairs) to perform activity n. Standing for 1 hour Extreme difficulty or unable to perform activity o. Sitting for 1 hour Quite a bit of difficulty p. Running on even ground Extreme difficulty or unable to perform activity q. Running on uneven ground Extreme difficulty or unable to perform activity r. Making sharp turns while running fast Extreme difficulty or unable to perform activity s. Hopping Extreme difficulty or unable to perform activity t. Rolling over in bed Extreme difficulty or unable to perform activity LEFI Score Lower Extremity Functional Index Score 18 Outpatient Therapy Assessment Impairments Problems/Impairmments Palpation Tenderness,Impaired Range of Motion,Impaired Strength,Impaired Gait Pattern ,Impaired Walking,Impaired Standing,Impaired Household Care,Impaired Stair Climbing, Increased Edema,Subjective C/O Pain,Impaired Self Care/Self Management Prognosis Rehab Potential Good Clinical Impression Consistent with Diagnosis Yes Short Term Goals Number of Weeks 4 Decreased Palpation Tenderness Yes: 1-2/4 right ankle Increase Range of Motion Yes: 50-75% of WFL RIGHT ANKLE AROM Increase Strength Yes: 4--4/5 RIGHT ANKLE MM Increase Ability to Walk Yes: 5MIN Increase Ability to Stand Yes: 10MIN Improve LEFI Score Yes: 25-30 Decrease Subjective C/O Pain Yes: 4-5/10 W/ABOVE ACTIVITIES Patient to be Ind w/ HEP Yes Alf Goals Number of Weeks 8-10 Decreased Palpation Tenderness Yes: 0-1/4 RIGHT ANKLE Increase Range of Motion Yes: WFL RIGHT ANKLE AROM Increase Strength Yes: 4+-5/5 RIGHT ANKLE Improve Gait Pattern without Assistive Yes: WFL ON LEVEL TERRAIN Device Increase Ability to Walk Yes: 10MIN Increase Ability to Stand 15MIN Improve Ability For Household Care Yes: 15MIN Improve LEFI Score Yes: 40-45 Decrease Subjective C/O Pain Yes: 0-3/10 W/ABOVE ACTIVITIES Patient to be Ind w/ Advanced HEP Yes Outpatient Therapy Plan of Care Treatment Plan May Include Therapeutic Exercise Including Home Yes Exercise Program Manual Therapy Techniques Yes Neuromuscular Re-education Yes Therapeutic Activities to Return to Yes Previous Functional/Work Level Gait Training Yes ADL/Self Care Education Yes Dry Needling Yes Thermal Modalities Yes Electrical Stimulation Yes Ultrasound/Phonophoresis Yes Iontophoresis Yes Vasopneumatic Compression Pump Yes Manual Lymphatic Drainage Yes Eval/Re-Eval Yes Frequency Times per week 2-3 Duration Number of Weeks 8-10 Addendums This patient is a candidate for social No or vocational rehab? Patient/Guardian verbally acknowledges Yes understanding of treatment program and consents to further treatment? Patient/Guardian verbally acknowledges Yes understanding of diagnosis, prognosis and goals for treatment? Eval Complexity PT Charges 14287 - High Complexity Shoulder/Elbow Eval Shoulder Objective Measurements Elbow Objective Measurements PHYSICIAN CERTIFICATION: I certify the specified therapy services for Rosi Byrd are required, authorized, and reviewed every 30 days.
--- NOTE | 2024-04-13 13:38 | HMH.RHREAS ---
Rehab Reassessment Rehab OP Re-assessment Start: 03/17/24 11:21 Freq: Status: Active Protocol: Document 04/13/24 13:07 ALEXEY (Rec: 04/13/24 13:38 ALEXEY [id number]) E-signed By Rocael Philip, PT Lower Extremity Functional Index Activities Today, do you or would you have any difficulty at all with: a.Any of your usual work, housework or A little bit of difficulty school activities b. Your usual hobbies, recreational or Moderate difficulty sporting activities c. Getting into or out of the bath No difficulty d. Walking between rooms A little bit of difficulty e. Putting on your shoes or socks A little bit of difficulty f. Squatting Extreme difficulty or unable to perform activity g. Lifting an object, like a bag of Moderate difficulty groceries from the floor h. Performing light activities around A little bit of difficulty your home i. Performing heavy activities around Quite a bit of difficulty your home j. Getting into or out of a car Moderate difficulty k. Walking 2 blocks Quite a bit of difficulty l. Walking a mile Extreme difficulty or unable to perform activity m. Going up or down 10 stairs (about 1 Quite a bit of difficulty flight of stairs) n. Standing for 1 hour Quite a bit of difficulty o. Sitting for 1 hour Quite a bit of difficulty p. Running on even ground Extreme difficulty or unable to perform activity q. Running on uneven ground Extreme difficulty or unable to perform activity r. Making sharp turns while running fast Extreme difficulty or unable to perform activity s. Hopping Extreme difficulty or unable to perform activity t. Rolling over in bed Extreme difficulty or unable to perform activity LEFI Score Lower Extremity Functional Index Score 27 Rehab Re-assessment Subjective Subjective Pt reports 2/10 right ankle pain (lateral aspect) this pm on VAS, and feels like 'I'm not walking on a 4inch heel anymore.' Objective Objective Notes AROM: RIGHT ANKLE DF 0-12, PF 0-51, INV 0-33, EVR 0-21 MMT: RIGHT ANKLE DF 4+/5, PF 4 -4+/5, INV 4--4/5, EVR 4--4/5 TTP: RIGHT ANKLE PERONEAL 2/4, RIGHT ATF 1-2/4, RIGHT ACHILLES 1-2/4 GAIT: TOEING OUT B/L W/MIN-MOD ANTALGIC PATTERN THROUGH B/L LE'S ON LEVEL TERRAIN Assessment Progress Assessment Progressing as Expected Assessment Notes Pt exhibits significantly improved strength, ROM, LEF score, and TTP Patient goals met STG'S 03/18 LTG'S 09/20 Goals Not Met LTG'S 03/20 Plan Plan Pt to continue w/skilled P.T. to make further improvements in ROM, strength, TTP, and gait to allow for optimal function Frequency of Therapy 1-2x/wk Duration of therapy 4-6wks Time and Billing Re-Eval Time 12 Re-Eval Billing Units 1 PHYSICIAN CERTIFICATION: I certify the specified therapy services for Rosi Byrd are required, authorized, and reviewed every 30 days.
== END 2024-05-13 23:59 | disposition home or self-care (01) ==
LOC: PT 14:00
PROVIDERS: Visit Provider Internal Medicine Adolescent Medicine
DX: M76.61 Achilles tendinitis, right leg (principal)
CPT/HCPCS: 97014; 97035; 97110; 97163; 97164; G0283

== ENCOUNTER 2024-06-03 09:12 | Outpatient (POV) | payer MEDICARE, SELFPAY ==
[2024-06-03 09:44] LABS: Basophils # 0.2 K/mm3 (0-0.2); Basophils % 1.5 % (0.1-2.0); Eosinophils # 0.5 K/mm3 (0.0-0.4); Eosinophils % 5.3 % (0.1-12.0); Hematocrit 45.1 % (37.0-47.0); Hemoglobin 14.9 g/dL (12.2-16.2); Lymphocytes # 3.9 K/mm3 (0.7-4.5); Lymphocytes % 38.1 % (10-50); Mean Corpuscular HGB Conc 33.1 g/dL (31.8-35.4); Mean Corpuscular Hemoglobin 30.4 pg (27.0-31.2); Mean Corpuscular Volume 91.9 fl (81-99); Mean Platelet Volume 8.4 fl (7.4-10.4); Monocytes # 0.4 K/mm3 (0.1-1.0); Monocytes % 4.4 % (1.7-9.3); Neutrophils # 5.2 K/mm3 (1.8-7.8); Neutrophils % 50.7 % (37.0-80.0); Platelet Count 259 K/mm3 (142-424); Red Blood Count 4.91 M/mm3 (4.20-5.40); Red Cell Distribution Width 15.3 % (11.5-17.5); White Blood Count 10.2 K/mm3 (4.8-10.8)
[2024-06-03 10:17] LABS: Albumin Level 3.9 g/dl (3.5-5.0); Chloride 107 mmol/L (98-107); Potassium 4.5 mmoL/L (3.5-5.1); Sodium 141 mmol/L (136-145)
[2024-06-03 10:19] LABS: Blood Urea Nitrogen 12 mg/dl (7-17)
[2024-06-03 10:20] LABS: Alanine Aminotransferase 30 U/L (12-78); Albumin/Globulin Ratio 1.2 (1.1-1.8); Alkaline Phosphatase 81 U/L (38-126); Anion Gap 10.5 mEq/L (5-15); Aspartate Amino Transferase 38 U/L (14-36); Bilirubin,Total 0.7 mg/dl (0.2-1.3); Calcium 9.2 mg/dl (8.4-10.2); Carbon Dioxide 28 mmol/L (22.0-30.0); Cholesterol 116 mg/dl (140-200); Estimated Glomerular Filt Rate 83 ml/min (>60); GFR (African American) 100 ML/MIN (>60); Globulin 3.2 g/dL (1.3-3.2); Glucose 136 mg/dl (74-100); Total Protein,Serum 7.1 g/dl (6.3-8.2); Triglycerides 113 mg/dl (30-150); VLDL Cholesterol 23 mg/dL (0-40)
[2024-06-03 10:21] LABS: Chol/HDL Ratio 2.6 (1-3.5); HDL Cholesterol 44 mg/dl (40-60)
[2024-06-03 10:31] LABS: Direct LDL Cholesterol 57.09 mg/dL (100-129)
[2024-06-03 10:51] LABS: Thyroid Stimulating Hormone < 0.02 uIU/mL (0.465-4.68)
[2024-06-03 10:55] LABS: Ferritin 10.7 ng/ml (11.1-264)
[2024-06-03 11:04] LABS: Hemoglobin A1C 6.2 % (4.0-6.0)
[2024-06-03 11:54] LABS: Vitamin B12 > 1000 pg/mL (239-931)
--- NOTE | 2024-06-03 14:19 | A.OFFVIS_ITS ---
[facility] Disclaimer: The information contained in this section may have been updated after the patient was seen, as this information can be updated by other users. Medical History Kidney stone Chronic kidney disease Urinary tract infection Pneumonia History of COVID-19 Endometriosis Pelvic inflammatory disease (PID) History of stroke Osteoarthritis Fibromyalgia History of diverticulitis Irritable bowel syndrome (IBS) History of gastroesophageal reflux (GERD) Hypothyroid Diabetes mellitus, type 2 Hyperlipidemia Hypertension History of anemia Surgical History H/O thyroidectomy H/O colonoscopy H/O shoulder surgery History of hysterectomy History of tonsillectomy History of cholecystectomy Family History Father Throat cancer Family history of abdominal aortic aneurysm Mother Pancreatic cancer Family history of diabetes mellitus type II Family history of stroke Grandfather Family history of myocardial infarction Social History Smoking Status: Never smoker alcohol intake: never substance use type: denies use current occupational status: other Travel in the last 8 weeks: None household members: spouse housing: house caffeine: Yes (daily) PM Subjective & Objective Subjective Subjective:: Patient is a pleasant 68-year-old female who presents today for follow-up. Toda y she rates her pain a 5 out of 10. Patient denies any new trauma or injury. She does state that she still feels like the right SI injection that she got in the beginning of April is still significantly helping. She states she has been having a little bit more soreness in her upper right side and is wondering whether or not that has something to do with the sacroiliitis. Patient did state that she chose not to proceed forward with the compounded cream. Patient denies any other changes. Patient does state that her is scheduled for surgery in June due to some urology issues. Her Manjit has been reviewed and is appropriate. Review of Systems: General: No recent weight changes, no fever, no sleep disturbances Respiratory: No cough, no shortness of air, no recurring pulmonary infections Cardiovascular/peripheral vascular: No chest pain, no palpitations, no edema, no shortness of breath Gastrointestinal: No new onset incontinence, normal bowel movements reported Genitourinary: No new onset incontinence Musculoskeletal: Right upper thigh pain Psychiatric: [Normal mood/affect] Neurological: [Denies weakness in extremities], [denies balance issues] Pain at rest (0-10 scale): 5 Objective Objective:: Physical Exam: General: Alert and oriented x3, no acute distress, pleasant and cooperative Lungs: Respirations even and unlabored, symmetrical chest expansion Eyes: PERRL Musculoskeletal: Flexion and extension of lumbar [spine] somewhat guarded secondary to pain, [antalgic gait noted] Neurological: Speech clear, no gross sensory deficit Has patient had previous pain injection?: No Conservative treatment options previously tried: Home exercise plan Length of treatment: Longer than 12 weeks Meds Home Medications and Allergies Home Medications ?Medication ?Instructions ?Recorded ?Confirmed ?Type calcium 600 mg (as 1 cap PO DAILY Supplement 10/23/17 05/05/24 History carbonate)-vitamin D3 5 mcg (200 unit) capsule (Calcium 600 + D(3)) cyanocobalamin (vitamin B-12) 1,000 mcg PO DAILY Supplement 10/23/17 05/05/24 History 1,000 mcg tablet (Vitamin B-12) docusate sodium 100 mg capsule 300 mg PO QHS constipation 10/23/17 05/05/24 History (Dulcolax Stool Softener (docusate)) gabapentin 300 mg capsule 300 mg PO BID Pain 90 days 10/23/17 05/05/24 History insulin human U-100 NPH-regulr 14 unit SUB-Q QAM dm 10/23/17 05/05/24 History 70-30 mix 100 unit/mL subcutaneous susp (Novolin 70/30 U-100 Insulin) levothyroxine 50 mcg tablet 50 mcg PO DAILY thyroid 90 days 10/23/17 05/05/24 History losartan 50 mg tablet 50 mg PO DAILY bp 90 days 10/23/17 05/05/24 History metformin 500 mg tablet 1,000 mg PO BID Diabetes 90 days 10/23/17 05/05/24 History pyridoxine (vitamin B6) 100 mg 100 mg PO HS Supplement 10/23/17 05/05/24 History tablet (Vitamin B-6) rosuvastatin 10 mg tablet 10 mg PO HS Cholesterol 90 days 08/20/18 05/05/24 History insulin detemir U-100 100 unit/mL 15 unit SQ HS dm 12/10/18 05/05/24 History (3 mL) subcutaneous pen loratadine-pseudoephedrine ER 10 1 each PO HS allergies 12/10/18 05/05/24 History mg-240 mg tablet,extended [id number] potassium 99 mg tablet 99 mg PO HS Supplement 12/10/18 05/05/24 History ferrous sulfate 325 mg (65 mg 325 mg PO DAILY Supplement 01/25/19 05/05/24 History iron) tablet pantoprazole 40 mg tablet,delayed 40 mg PO BID GERD 01/25/19 05/05/24 History release mupirocin 2 % topical ointment 1 ea topical DAILY . 11/05/21 05/05/24 History albuterol sulfate 2.5 mg/3 mL 2.5 mg inhalation QID PRN asthma 08/16/22 05/05/24 History (0.083 %) solution for nebulization aspirin 325 mg capsule 325 mg PO DAILY Blood thinner 08/16/22 05/05/24 History baclofen 10 mg tablet 10 mg PO DAILY Pain 08/16/22 05/05/24 History citicoline 500 mg capsule 1 mg PO DAILY . 08/16/22 05/05/24 History (Cognitive Health) clobetasol 0.05 % topical cream 1 applic topical HS . 08/16/22 05/05/24 History multivitamin 1 tab PO DAILY Supplement 08/16/22 05/05/24 History pumpkin seed extract-soy germ 300 1 cap PO DAILY Supplement 08/16/22 05/05/24 History mg capsule (Azo Bladder Control) semaglutide 7 mg tablet (Rybelsus) 7 mg PO DAILY . 08/16/22 05/05/24 History hydrocodone 5 mg-acetaminophen 325 1 tab PO Q6H PRN pain 3 days #12 10/22/23 05/05/24 Rx mg tablet tabs diazepam 5 mg tablet 5 mg PO DAILY 02/19/24 05/05/24 History insulin glargine U-300 conc 300 30 unit SQ HS 02/19/24 05/05/24 History unit/mL (3 mL) subcutaneous pen (Toujeo Max U-300 SoloStar) ropinirole 0.5 mg tablet 0.5 mg PO BID 02/19/24 05/05/24 History New Prescriptions to Start Prescriptions: Allergies Allergy/AdvReac Type Severity Reaction Status Date / Time clonazepam Allergy Severe I-HIVES Verified 04/20/24 13:07 diazepam Allergy Severe I-HIVES Verified 04/20/24 13:07 meperidine Allergy Severe HEMORRHAGE\ Verified 04/20/24 13:07 Penicillins Allergy Severe COMA Verified 04/20/24 13:07 tegaserod [From Zelnorm] Allergy Intermediate I-HIVES Verified 04/20/24 13:07 promethazine Allergy Mild HIVES,NAUSE Verified 04/20/24 13:07 A tramadol Allergy Mild I-HIVES Verified 04/20/24 13:07 canagliflozin [From Invokana] Allergy Unknown Verified 04/20/24 13:07 capsaicin [From Capzasin] Allergy Unknown Blister Verified 04/20/24 13:07 duloxetine [From Cymbalta] Allergy Unknown Verified 04/20/24 13:07 menthol [From Capzasin] Allergy Unknown Blister Verified 04/20/24 13:07 metformin [From Janumet] Allergy Unknown Verified 04/20/24 13:07 sitagliptin [From Janumet] Allergy Unknown Verified 04/20/24 13:07 empagliflozin Allergy Hives Verified 04/20/24 13:07 [From Jardiance] lisinopril AdvReac Cough Verified 04/20/24 13:07 CRANBERRIES Allergy Unknown I-HIVES Uncoded 04/20/24 13:07 Assessment and Plan *Assessment and plan (1) Sacroiliitis: Status: Acute Category: Medical Code(s): M46.1 - Sacroiliitis, not elsewhere classified Plan Patient is still doing well overall from her SI injections and does not require any additional injection therapy at this time. I did discuss with the patient that the SI joint can have some symptoms going into her upper thigh. Patient acknowledges understanding. Patient will return to clinic in 3 months for r eevaluation of symptoms and plan of care. Patient has been instructed to contact the clinic with any concerns before the next appointment. Dr. Jones has reviewed this note and agrees with this plan of care. This note was dictated using voice recognition software and make contain errors or omissions. All injections are used with Lidocaine or Bupivacaine and Depo Medrol.
[2024-06-03 15:27] VITALS: BP 147/58; PULSE 90; RESP 18; O2SAT 97; BMI 38.9
== END 2024-06-03 23:59 | disposition home or self-care (01) ==
PROVIDERS: PCP Internal Medicine Adolescent Medicine; Visit Provider Nurse Practitioner Family
DX: E11.42 Type 2 diabetes mellitus with diabetic polyneuropathy (principal); M46.1 Sacroiliitis, not elsewhere classified; Z79.899 Other long term (current) drug therapy
CPT/HCPCS: 36415; 80053; 80061; 82607; 82728; 83036; 84443; 85025; 99212; G0463

== ENCOUNTER 2024-06-28 10:39 | Outpatient (CLI) | payer MEDICARE, SELFPAY ==
[2024-06-28 11:30] LABS: Basophils # 0.1 K/mm3 (0-0.2); Basophils % 1.1 % (0.1-2.0); Eosinophils # 0.5 K/mm3 (0.0-0.4); Eosinophils % 5.3 % (0.1-12.0); Hematocrit 43.2 % (37.0-47.0); Hemoglobin 14.7 g/dL (12.2-16.2); Lymphocytes # 3.3 K/mm3 (0.7-4.5); Lymphocytes % 37.9 % (10-50); Mean Corpuscular Hemoglobin 31.1 pg (27.0-31.2); Mean Corpuscular Volume 91.3 fl (81-99); Mean Platelet Volume 8.6 fl (7.4-10.4); Monocytes # 0.5 K/mm3 (0.1-1.0); Monocytes % 5.3 % (1.7-9.3); Neutrophils # 4.4 K/mm3 (1.8-7.8); Neutrophils % 50.3 % (37.0-80.0); Platelet Count 235 K/mm3 (142-424); Red Blood Count 4.73 M/mm3 (4.20-5.40); Red Cell Distribution Width 15.4 % (11.5-17.5); White Blood Count 8.8 K/mm3 (4.8-10.8)
[2024-06-28 11:38] LABS: Albumin Level 3.8 g/dl (3.5-5.0); Chloride 107 mmol/L (98-107); Potassium 4.2 mmoL/L (3.5-5.1); Sodium 142 mmol/L (136-145)
[2024-06-28 11:41] LABS: Alanine Aminotransferase 28 U/L (12-78); Albumin/Globulin Ratio 1.3 (1.1-1.8); Alkaline Phosphatase 67 U/L (38-126); Anion Gap 12.2 mEq/L (5-15); Aspartate Amino Transferase 40 U/L (14-36); Bilirubin,Total 0.7 mg/dl (0.2-1.3); Blood Urea Nitrogen 13 mg/dl (7-17); Carbon Dioxide 27 mmol/L (22.0-30.0); Estimated Glomerular Filt Rate 71 ml/min (>60); GFR (African American) 86 ML/MIN (>60); Total Protein,Serum 6.8 g/dl (6.3-8.2)
[2024-06-28 11:42] LABS: Calcium 9.2 mg/dl (8.4-10.2); Glucose 126 mg/dl (74-100)
[2024-06-28 12:11] LABS: Erythrocyte Sedimentation Rate 20 mm/hr (0-30)
== END 2024-06-28 23:59 | disposition home or self-care (01) ==
LOC: LAB 10:41
PROVIDERS: PCP Internal Medicine Adolescent Medicine; Visit Provider Nurse Practitioner Family
DX: M45.9 Ankylosing spondylitis of unspecified sites in spine (principal); D84.821 Immunodeficiency due to drugs; Z79.899 Other long term (current) drug therapy; Z51.81 Encounter for therapeutic drug level monitoring; R53.83 Other fatigue
CPT/HCPCS: 36415; 80053; 85025; 85651; 86140

== ENCOUNTER 2024-09-02 13:44 | Outpatient (POV) | payer MEDICARE, SELFPAY ==
--- NOTE | 2024-09-02 14:55 | EXP.PAIN.SOA ---
[facility] Disclaimer: The information contained in this section may have been updated after the patient was seen, as this information can be updated by other users. Medical History Kidney stone Chronic kidney disease Urinary tract infection Pneumonia History of COVID-19 Endometriosis Pelvic inflammatory disease (PID) History of stroke Osteoarthritis Fibromyalgia History of diverticulitis Irritable bowel syndrome (IBS) History of gastroesophageal reflux (GERD) Hypothyroid Diabetes mellitus, type 2 Hyperlipidemia Hypertension History of anemia Surgical History H/O thyroidectomy H/O colonoscopy H/O shoulder surgery History of hysterectomy History of tonsillectomy History of cholecystectomy Family History Father Throat cancer Family history of abdominal aortic aneurysm Mother Pancreatic cancer Family history of diabetes mellitus type II Family history of stroke Grandfather Family history of myocardial infarction Social History Smoking Status: Never smoker alcohol intake: never substance use type: denies use current occupational status: other Travel in the last 8 weeks: None household members: spouse housing: house caffeine: Yes (daily) PM Subjective & Objective Subjective Subjective:: Patient is a pleasant 68-year-old female who presents today for follow-up. Today she rates her pain a 7 out of 10. She denies any new injury from her last appointment. She does state that she has noticed a little bit more pain in and around her right groin and right leg area. She does state that it is worse with increased activity and at times does go down her entire right extremity. Patient states that it does seem very aggravating while she is driving. Patient does have a longstanding history of a hyperextended Achilles' heel that does cause a lot of her lower right leg symptoms. Patient states that she does have a lot going on with her that he was recently diagnosed with another area of cancer in and around his liver. She states that they are scheduled to do treatment starting Friday. Patient is managed with gabapentin, baclofen and ropinirole from her PCP. Her Manjit has been reviewed and is appropriate. Review of Systems: General: No recent weight changes, no fever, no sleep disturbances Respiratory: No cough, no shortness of air, no recurring pulmonary infections Cardiovascular/peripheral vascular: No chest pain, no palpitations, no edema, no shortness of breath Gastrointestinal: No new onset incontinence, normal bowel movements reported Genitourinary: No new onset incontinence Musculoskeletal: Low back pain, right groin pain, right leg pain Psychiatric: [Normal mood/affect] Neurological: [Denies weakness in extremities], [denies balance issues] Pain at rest (0-10 scale): 7 Objective Objective:: Physical Exam: General: Alert and oriented x3, no acute distress, pleasant and cooperative Lungs: Respirations even and unlabored, symmetrical chest expansion Eyes: PERRL Musculoskeletal: Flexion and extension of lumbar [spine] somewhat guarded secondary to pain, [antalgic gait noted] point tenderness along right SI with positive right Katherin's, Sam's, Gaenslen's, compression and distraction exam Neurological: Speech clear, no gross sensory deficit Has patient had previous pain injection?: No Conservative treatment options previously tried: Home exercise plan Length of treatment: Longer than 12 weeks Meds Home Medications and Allergies Home Medications ?Medication ?Instructions ?Recorded ?Confirmed ?Type calcium 600 mg (as 1 cap PO DAILY Supplement 10/23/17 06/03/24 History carbonate)-vitamin D3 5 mcg (200 unit) capsule (Calcium 600 + D(3)) cyanocobalamin (vitamin B-12) 1,000 mcg PO DAILY Supplement 10/23/17 06/03/24 History 1,000 mcg tablet (Vitamin B-12) docusate sodium 100 mg capsule 300 mg PO QHS constipation 10/23/17 06/03/24 History (Dulcolax Stool Softener (docusate)) gabapentin 300 mg capsule 300 mg PO BID Pain 90 days 10/23/17 06/03/24 History insulin human U-100 NPH-regulr 14 unit SUB-Q QAM dm 10/23/17 06/03/24 History 70-30 mix 100 unit/mL subcutaneous susp (Novolin 70/30 U-100 Insulin) levothyroxine 50 mcg tablet 50 mcg PO DAILY thyroid 90 days 10/23/17 06/03/24 History losartan 50 mg tablet 50 mg PO DAILY bp 90 days 10/23/17 06/03/24 History metformin 500 mg tablet 1,000 mg PO BID Diabetes 90 days 10/23/17 06/03/24 History pyridoxine (vitamin B6) 100 mg 100 mg PO HS Supplement 10/23/17 06/03/24 History tablet (Vitamin B-6) rosuvastatin 10 mg tablet 10 mg PO HS Cholesterol 90 days 08/20/18 06/03/24 History insulin detemir U-100 100 unit/mL 15 unit SQ HS dm 12/10/18 06/03/24 History (3 mL) subcutaneous pen loratadine-pseudoephedrine ER 10 1 each PO HS allergies 12/10/18 06/03/24 History mg-240 mg tablet,extended [id number] potassium 99 mg tablet 99 mg PO HS Supplement 12/10/18 06/03/24 History ferrous sulfate 325 mg (65 mg 325 mg PO DAILY Supplement 01/25/19 06/03/24 History iron) tablet pantoprazole 40 mg tablet,delayed 40 mg PO BID GERD 01/25/19 06/03/24 History release mupirocin 2 % topical ointment 1 ea topical DAILY . 11/05/21 06/03/24 History albuterol sulfate 2.5 mg/3 mL 2.5 mg inhalation QID PRN asthma 08/16/22 06/03/24 History (0.083 %) solution for nebulization aspirin 325 mg capsule 325 mg PO DAILY Blood thinner 08/16/22 06/03/24 History baclofen 10 mg tablet 10 mg PO DAILY Pain 08/16/22 06/03/24 History citicoline 500 mg capsule 1 mg PO DAILY . 08/16/22 06/03/24 History (Cognitive Health) clobetasol 0.05 % topical cream 1 applic topical HS . 08/16/22 06/03/24 History multivitamin 1 tab PO DAILY Supplement 08/16/22 06/03/24 History pumpkin seed extract-soy germ 300 1 cap PO DAILY Supplement 08/16/22 06/03/24 History mg capsule (Azo Bladder Control) semaglutide 7 mg tablet (Rybelsus) 7 mg PO DAILY . 08/16/22 06/03/24 History hydrocodone 5 mg-acetaminophen 325 1 tab PO Q6H PRN pain 3 days #12 10/22/23 06/03/24 Rx mg tablet tabs diazepam 5 mg tablet 5 mg PO DAILY 02/19/24 06/03/24 History insulin glargine U-300 conc 300 30 unit SQ HS 02/19/24 06/03/24 History unit/mL (3 mL) subcutaneous pen (Toujeo Max U-300 SoloStar) ropinirole 0.5 mg tablet 0.5 mg PO BID 02/19/24 06/03/24 History New Prescriptions to Start Prescriptions: Allergies Allergy/AdvReac Type Severity Reaction Status Date / Time clonazepam Allergy Severe I-HIVES Verified 04/20/24 13:07 diazepam Allergy Severe I-HIVES Verified 04/20/24 13:07 meperidine Allergy Severe HEMORRHAGE\ Verified 04/20/24 13:07 Penicillins Allergy Severe COMA Verified 04/20/24 13:07 tegaserod (From Zelnorm) Allergy Intermediate I-HIVES Verified 04/20/24 13:07 promethazine Allergy Mild HIVES,NAUSE Verified 04/20/24 13:07 A tramadol Allergy Mild I-HIVES Verified 04/20/24 13:07 canagliflozin (From Invokana) Allergy Unknown Verified 04/20/24 13:07 capsaicin (From Capzasin) Allergy Unknown Blister Verified 04/20/24 13:07 duloxetine (From Cymbalta) Allergy Unknown Verified 04/20/24 13:07 menthol (From Capzasin) Allergy Unknown Blister Verified 04/20/24 13:07 metformin (From Janumet) Allergy Unknown Verified 04/20/24 13:07 sitagliptin (From Janumet) Allergy Unknown Verified 04/20/24 13:07 empagliflozin (From Allergy Hives Verified 04/20/24 13:07 Jardiance) lisinopril AdvReac Cough Verified 04/20/24 13:07 CRANBERRIES Allergy Unknown I-HIVES Uncoded 04/20/24 13:07 Assessment and Plan *Assessment and plan (1) Sacroiliitis: Status: Acute Category: Medical Code(s): M46.1 - Sacroiliitis, not elsewhere classified (2) Greater trochanteric bursitis of right hip: Status: Acute Category: Medical Code(s): M70.61 - Trochanteric bursitis, right hip Plan Patient does appear to have some right-sided bursitis and a little bit inflammation in her right SI joint again. Patient did have significant findings including point tenderness on her SI joint and a positive right Katherin's, Sam's, Gaenslen's, compression and distraction exam. I did discuss with the patient that she may benefit from additional SI injections or bursa injections however she does have a lot going on with her 's current health. Patient will plan on coming back in our office for a follow-up in 1 month however was counseled that if she would like to proceed forward with these injections she can call and schedule it over the phone. Patient agrees with this plan of care. Patient has been instructed to contact the clinic with any concerns before the next appointment. Dr. Jones has reviewed this note and agrees with this plan of care. This note was dictated using voice recognition software and make contain errors or omissions. All injections are used with Lidocaine, Bupivacaine and Depo Medrol. Occasionally urine drug screen is needed to verify patient's compliance with our office pain contract. This is ordered based off specific treatments related to chronic pain with the potential to abuse certain medications.
[2024-09-02 14:56] VITALS: BP 122/63; PULSE 82; RESP 14; O2SAT 97; BMI 37.8
== END 2024-09-02 23:59 | disposition home or self-care (01) ==
LOC: SC.PAIN 13:46
PROVIDERS: PCP Internal Medicine Adolescent Medicine; Visit Provider Nurse Practitioner Family
DX: M46.1 Sacroiliitis, not elsewhere classified (principal); M70.61 Trochanteric bursitis, right hip; Z79.899 Other long term (current) drug therapy
CPT/HCPCS: 99212; G0463

== ENCOUNTER 2024-09-09 12:54 | Outpatient (CLI) | payer MEDICARE, SELFPAY ==
--- NOTE | 2024-09-09 12:58 | XR_ITS ---
FINAL REPORT CLINICAL HISTORY: lt shoulder pain COMPARISON: 04/20/2024 FINDINGS: LEFT SHOULDER 4 views of the left shoulder were obtained. There is a moderately displaced fracture through the surgical neck of the humerus, which appears to be chronic. The glenohumeral joint is preserved. The acromioclavicular joint is intact. Soft tissues are unremarkable. IMPRESSION: Chronic appearing moderately displaced fracture surgical neck of the humerus. Reviewed, Interpreted and Dictated by Carlos Craven MD Transcribed by Tanisha Li Authenticated and [facility]
== END 2024-09-09 23:59 | disposition home or self-care (01) ==
LOC: RAD 12:55
PROVIDERS: PCP Internal Medicine Adolescent Medicine; Visit Provider Orthopaedic Surgery
DX: M25.512 Pain in left shoulder (principal); S42.292G Other displaced fracture of upper end of left humerus, subsequent encounter for fracture with delayed healing
CPT/HCPCS: 73030

== ENCOUNTER 2024-09-30 14:57 | Outpatient (POV) | payer MEDICARE, SELFPAY ==
--- NOTE | 2024-09-30 15:05 | A.OFFVIS_ITS ---
[facility] Disclaimer: The information contained in this section may have been updated after the patient was seen, as this information can be updated by other users. Medical History Kidney stone Chronic kidney disease Urinary tract infection Pneumonia History of COVID-19 Endometriosis Pelvic inflammatory disease (PID) History of stroke Osteoarthritis Fibromyalgia History of diverticulitis Irritable bowel syndrome (IBS) History of gastroesophageal reflux (GERD) Hypothyroid Diabetes mellitus, type 2 Hyperlipidemia Hypertension History of anemia Surgical History H/O thyroidectomy H/O colonoscopy H/O shoulder surgery History of hysterectomy History of tonsillectomy History of cholecystectomy Family History Father Throat cancer Family history of abdominal aortic aneurysm Mother Pancreatic cancer Family history of diabetes mellitus type II Family history of stroke Grandfather Family history of myocardial infarction Social History Smoking Status: Never smoker alcohol intake: never substance use type: denies use current occupational status: other Travel in the last 8 weeks: None household members: spouse housing: house caffeine: Yes (daily) PM Subjective & Objective Subjective Subjective:: Patient is a pleasant 69-year-old female who presents today for 1 month follow- up. Today she rates her pain a 10 out of 10. At our last visit she was positive for a right SI and right bursa pain however she had a lot going on with her 's additional cancer diagnosis and treatment and did not want to schedule for injections yet. Today she states that it is continued to progress and now is actually going down both her legs all the way to her feet. She states she does have numbness and tingling into those extremities and continues to have significant soreness all across her back into her buttocks. Patient denies any additional falls from her last appointment. She does state that her is starting his radium treatments next week for his cancer and is scheduled to have 5 doses. She states that they ended up finding additional cancer areas. Patient does note that she is going to be very preoccupied with his care however the pain is really interfering with her ability to perform activities of daily living such as cooking or cleaning or even simple ambulation. Patient does state that she is interested in injection therapy today as this is just progressively worsened and is not going away. Patient is prescribed gabapentin, baclofen and ropinirole from her PCP. Her Manjit has been reviewed and is appropriate. Review of Systems: General: No recent weight changes, no fever, no sleep disturbances Respiratory: No cough, no shortness of air, no recurring pulmonary infections Cardiovascular/peripheral vascular: No chest pain, no palpitations, no edema, no shortness of breath Gastrointestinal: No new onset incontinence, normal bowel movements reported Genitourinary: No new onset incontinence Musculoskeletal: Low back pain, bilateral leg pain Psychiatric: [Normal mood/affect] Neurological: [Denies weakness in extremities], [denies balance issues] Pain at rest (0-10 scale): 10 Objective Objective:: Physical Exam: General: Alert and oriented x3, no acute distress, pleasant and cooperative Lungs: Respirations even and unlabored, symmetrical chest expansion Eyes: PERRL Musculoskeletal: Flexion and extension of lumbar [spine] somewhat guarded secondary to pain, [antalgic gait noted] positive leg raise Neurological: Speech clear, no gross sensory deficit Has patient had previous pain injection?: No Conservative treatment options previously tried: Home exercise plan Length of treatment: Longer than 12 weeks Meds Home Medications and Allergies Home Medications ?Medication ?Instructions ?Recorded ?Confirmed ?Type calcium 600 mg (as 1 cap PO DAILY Supplement 10/23/17 09/30/24 History carbonate)-vitamin D3 5 mcg (200 unit) capsule (Calcium 600 + D(3)) cyanocobalamin (vitamin B-12) 1,000 mcg PO DAILY Supplement 10/23/17 09/30/24 History 1,000 mcg tablet (Vitamin B-12) docusate sodium 100 mg capsule 300 mg PO QHS constipation 10/23/17 09/30/24 History (Dulcolax Stool Softener (docusate)) gabapentin 300 mg capsule 300 mg PO BID Pain 90 days 10/23/17 09/30/24 History insulin human U-100 NPH-regulr 14 unit SUB-Q QAM dm 10/23/17 09/30/24 History 70-30 mix 100 unit/mL subcutaneous susp (Novolin 70/30 U-100 Insulin) levothyroxine 50 mcg tablet 50 mcg PO DAILY thyroid 90 days 10/23/17 09/30/24 History losartan 50 mg tablet 50 mg PO DAILY bp 90 days 10/23/17 09/30/24 History metformin 500 mg tablet 1,000 mg PO BID Diabetes 90 days 10/23/17 09/30/24 Hi story pyridoxine (vitamin B6) 100 mg 100 mg PO HS Supplement 10/23/17 09/30/24 History tablet (Vitamin B-6) rosuvastatin 10 mg tablet 10 mg PO HS Cholesterol 90 days 08/20/18 09/30/24 History insulin detemir U-100 100 unit/mL 15 unit SQ HS dm 12/10/18 09/30/24 History (3 mL) subcutaneous pen loratadine-pseudoephedrine ER 10 1 each PO HS allergies 12/10/18 09/30/24 History mg-240 mg tablet,extended [id number] potassium 99 mg tablet 99 mg PO HS Supplement 12/10/18 09/30/24 History ferrous sulfate 325 mg (65 mg 325 mg PO DAILY Supplement 01/25/19 09/30/24 History iron) tablet pantoprazole 40 mg tablet,delayed 40 mg PO BID GERD 01/25/19 09/30/24 History release mupirocin 2 % topical ointment 1 ea topical DAILY . 11/05/21 09/30/24 History albuterol sulfate 2.5 mg/3 mL 2.5 mg inhalation QID PRN asthma 08/16/22 09/30/24 History (0.083 %) solution for nebulization aspirin 325 mg capsule 325 mg PO DAILY Blood thinner 08/16/22 09/30/24 History baclofen 10 mg tablet 10 mg PO DAILY Pain 08/16/22 09/30/24 History citicoline 500 mg capsule 1 mg PO DAILY . 08/16/22 09/30/24 History (Cognitive Health) clobetasol 0.05 % topical cream 1 applic topical HS . 08/16/22 09/30/24 History multivitamin 1 tab PO DAILY Supplement 08/16/22 09/30/24 History pumpkin seed extract-soy germ 300 1 cap PO DAILY Supplement 08/16/22 09/30/24 History mg capsule (Azo Bladder Control) semaglutide 7 mg tablet (Rybelsus) 7 mg PO DAILY . 08/16/22 09/30/24 History hydrocodone 5 mg-acetaminophen 325 1 tab PO Q6H PRN pain 3 days #12 10/22/23 09/30/24 Rx mg tablet tabs diazepam 5 mg tablet 5 mg PO DAILY 02/19/24 09/30/24 History insulin glargine U-300 conc 300 30 unit SQ HS 02/19/24 09/30/24 History unit/mL (3 mL) subcutaneous pen (Toujeo Max U-300 SoloStar) ropinirole 0.5 mg tablet 0.5 mg PO BID 02/19/24 09/30/24 History New Prescriptions to Start Prescriptions: Allergies Allergy/AdvReac Type Severity Reaction Status Date / Time clonazepam Allergy Severe I-HIVES Verified 09/09/24 13:52 diazepam Allergy Severe I-HIVES Verified 09/09/24 13:52 meperidine Allergy Severe HEMORRHAGE\ Verified 09/09/24 13:52 Penicillins Allergy Severe COMA Verified 09/09/24 13:52 tegaserod (From Zelnorm) Allergy Intermediate I-HIVES Verified 09/09/24 13:52 promethazine Allergy Mild HIVES,NAUSE Verified 09/09/24 13:52 A tramadol Allergy Mild I-HIVES Verified 09/09/24 13:52 canagliflozin (From Invokana) Allergy Unknown Verified 09/09/24 13:52 capsaicin (From Capzasin) Allergy Unknown Blister Verified 09/09/24 13:52 duloxetine (From Cymbalta) Allergy Unknown Verified 09/09/24 13:52 menthol (From Capzasin) Allergy Unknown Blister Verified 09/09/24 13:52 metformin (From Janumet) Allergy Unknown Verified 09/09/24 13:52 sitagliptin (From Janumet) Allergy Unknown Verified 09/09/24 13:52 empagliflozin (From Allergy Hives Verified 09/09/24 13:52 Jardiance) lisinopril AdvReac Cough Verified 09/09/24 13:52 CRANBERRIES Allergy Unknown I-HIVES Uncoded 09/09/24 13:52 Assessment and Plan *Assessment and plan (1) Degenerative disc disease: Status: Acute Category: Medical (2) Lumbar radiculopathy: Status: Acute Category: Medical Code(s): M54.16 - Radiculopathy, lumbar region (3) Greater trochanteric bursitis of right hip: Status: Acute Category: Medical Code(s): M70.61 - Trochanteric bursitis, right hip (4) Sacroiliitis: Status: Acute Category: Medical Code(s): M46.1 - Sacroiliitis, not elsewhere classified Plan Patient is experiencing worsening pain in [her] low back with numbness and tingling into her lower extremities. Patient did have limited range of motion of her lumbar spine with a positive leg raise. I did discuss with patient that I do believe they would benefit from a lumbar epidural steroid injection. Risk and benefits were discussed with patient and the patient would like to proceed forward with this plan of care. Patient is on full-strength aspirin written from Dr. Leyva's office. We will call and confirm that she can stop this medication 7 days prior to her injection. Patient has tried and failed conservative therapy including continued at home stretching exercise for longer than 12 weeks between injections. Patient has not had any lumbar epidurals in the past however has had longstanding chronic back pain for longer than 10 years. We will schedule the patient for an LESI L5-S1 under fluoroscopy. Patient has been instructed to contact the clinic with any concerns before the next appointment. Dr. Jones has reviewed this note and agrees with this plan of care. This note was dictated using voice recognition software and make contain errors or omissions. All injections are used with Lidocaine, Bupivacaine and Depo Medrol. Occasionally urine drug screen is needed to verify patient's compliance with our office pain contract. This is ordered based off specific treatments related to chronic pain with the potential to abuse certain medications. Patient has been instructed to contact the clinic with any concerns before the next appointment. Dr. Jones has reviewed this note and agrees with this plan of care. This note was dictated using voice recognition software and make contain errors or omissions. All injections are used with Lidocaine, Bupivacaine and Depo Medrol. Occasionally urine drug screen is needed to verify patient's compliance with our office pain contract. This is ordered based off specific treatments related to chronic pain with the potential to abuse certain medications.
[2024-09-30 15:13] VITALS: BP 148/61; PULSE 78; RESP 16; O2SAT 95; BMI 37.1
--- NOTE | 2024-09-30 15:14 | PC.NURSE ---
PROVIDER NOTIFIED OF PT BP READING, PT DENIES DIZZINESS, H/A OR VISION CHANGES.
== END 2024-09-30 23:59 | disposition home or self-care (01) ==
LOC: SC.PAIN 15:02
PROVIDERS: PCP Internal Medicine Adolescent Medicine; Visit Provider Nurse Practitioner Family
DX: M70.61 Trochanteric bursitis, right hip (principal); M46.1 Sacroiliitis, not elsewhere classified; M51.16 Intervertebral disc disorders with radiculopathy, lumbar region; Z73.89 Other problems related to life management difficulty; Z79.899 Other long term (current) drug therapy
CPT/HCPCS: 99212; G0463

== ENCOUNTER 2024-10-15 09:12 | Outpatient (CLI) | payer MEDICARE, SELFPAY ==
[2024-10-15 09:29] LABS: MANUAL DIFFERENTIAL MANUAL DIFFERENTIAL (MANUAL DIFF)
[2024-10-15 10:25] LABS: Basophils # 0.1 K/mm3 (0-0.2); Eosinophils # 0.3 K/mm3 (0.0-0.4); Eosinophils % 3.4 % (0.1-12.0); Hematocrit 45.1 % (37.0-47.0); Hemoglobin 14.7 g/dL (12.2-16.2); Lymphocytes # 2.9 K/mm3 (0.7-4.5); Lymphocytes % 31.3 % (10-50); Mean Corpuscular HGB Conc 32.6 g/dL (31.8-35.4); Mean Corpuscular Hemoglobin 29.8 pg (27.0-31.2); Mean Corpuscular Volume 91.5 fl (81-99); Mean Platelet Volume 10.8 fl (7.4-10.4); Monocytes # 0.5 K/mm3 (0.1-1.0); Monocytes % 5.8 % (1.7-9.3); Neutrophils # 5.4 K/mm3 (1.8-7.8); Neutrophils % 58.3 % (37.0-80.0); Platelet Count 239 K/mm3 (142-424); Red Blood Count 4.93 M/mm3 (4.20-5.40); Red Cell Distribution Width 14.6 % (11.5-17.5); White Blood Count 9.3 K/mm3 (4.8-10.8)
[2024-10-15 10:40] LABS: Eosinophils % 1 % (0-3); Lymphocytes % 34 % (10-50); Monocytes % 2 % (2-9); Neutrophils % 63 % (42-76); Total Cells Counted 100
[2024-10-15 10:41] LABS: Platelet Estimate Normal; RBC Morphology Normal
[2024-10-15 10:54] LABS: Chol/HDL Ratio 2.5 (1-3.5); Cholesterol 119 mg/dl (140-200); HDL Cholesterol 48 mg/dl (40-60); Triglycerides 65 mg/dl (30-150); VLDL Cholesterol 13 mg/dL (0-40)
[2024-10-15 11:05] LABS: Direct LDL Cholesterol 51.79 mg/dL (100-129)
[2024-10-15 11:10] LABS: 25-OH Vitamin D, Total 47.9 ng/mL (30-100)
[2024-10-15 11:13] LABS: Triiodothryronine (T3) Uptake 33 % (23.5-40.5)
[2024-10-15 11:14] LABS: Free Thyroxine Index 3.1 ug/dL (5.93-13.13); T4 (Thyroxine) 9.4 ug/dl (5.53-11.0)
[2024-10-15 11:28] LABS: Thyroid Stimulating Hormone < 0.02 uIU/mL (0.465-4.68)
[2024-10-15 12:41] LABS: Hemoglobin A1C 5.6 % (4.0-6.0)
== END 2024-10-15 23:59 | disposition home or self-care (01) ==
LOC: LAB 09:16
PROVIDERS: PCP Internal Medicine Adolescent Medicine; Visit Provider Internal Medicine Adolescent Medicine
DX: E11.42 Type 2 diabetes mellitus with diabetic polyneuropathy (principal); M85.88 Other specified disorders of bone density and structure, other site; E03.9 Hypothyroidism, unspecified
CPT/HCPCS: 36415; 80061; 82306; 83036; 84436; 84443; 84479; 85007; 85014; 85018; 85048; 85049

== ENCOUNTER 2024-11-02 08:05 | Day surgery (SDC) | payer MEDICARE, SELFPAY ==
[2024-11-02 08:18] VITALS: BP 126/56; PULSE 68; RESP 16; TEMP 36.8; O2SAT 97; BMI 37.1
[2024-11-02 08:21] LABS: POC Glucose,Bedside 109 (70-110)
[2024-11-02] MEDS: methylPREDNISolone ACETATE 80MG/ML VIAL 80 MG (09:10)
[2024-11-02 09:11] VITALS: BP 126/56; PULSE 68; RESP 18; O2SAT 97
[2024-11-02 09:13] VITALS: BP 126/56; PULSE 68; RESP 18; O2SAT 97
[2024-11-02 09:16] VITALS: BP 140/54; PULSE 63; RESP 16; O2SAT 94
--- NOTE | 2024-11-02 09:49 | EXP.PAIN.PRO ---
Procedure Date: 11/02/24 Time: 08:30 Anesthesiologist:: Fortino Jimenez CRNA Complications:: None Pre-procedure Diagnosis:: Degenerative disc lumbar spine multilevels. Lumbar radiculopathy. Post-procedure Diagnosis:: Same. Indications for Procedure:: Patient is a very pleasant 69-year-old female who comes our clinic today for lumbar epidural steroid injection at L5-S1 level. Patient describes low lumbar back pain as well as bilateral hip and leg radicular symptoms at times. She rates her pain 6/10. Procedure Details:: Procedure: Lumbar epidural steroid injection under fluoroscopy Informed consent was obtained and the risks and benefits of the procedure were explained to the patient. The patient was taken to the procedure room and noninvasive monitors placed, including noninvasive blood pressure cuff and pulse oximeter. The back was viewed using C-arm Fluoroscopy and prepped using Chloraprep as a cleansing solution and the L5-S1 interspace was palpated. Skin and subcutaneous tissues were anesthetized using lidocaine 1.5% and a 25-gauge needle. After this, an 18-gauge Touhy epidural needle was placed into the L5-S1 interspace and advanced using fluoroscopic guidance and loss of resistance to air until the epidural space was encountered. After confirmation of needle placement in the epidural space, with dye, a solution containing normal saline, 3 mL and Depo-Medrol 80 mg were incrementally injected into the lumbar epidural space. The patient tolerated the procedure well with no complications. The patient was observed in the Pain Clinic and then discharged home neurologically intact. Plan and Disposition:: Patient was discharged without incident.
== END 2024-11-02 09:16 | disposition home or self-care (01) ==
LOC: SC.PAINP 08:06
PROVIDERS: PCP Internal Medicine Adolescent Medicine; Visit Provider Nurse Anesthetist, Certified Registered
DX: M51.16 Intervertebral disc disorders with radiculopathy, lumbar region (principal)
CPT/HCPCS: 62323; 82962; J1010

== ENCOUNTER 2024-11-22 14:48 | Outpatient (POV) | payer MEDICARE, SELFPAY ==
--- NOTE | 2024-11-22 15:13 | EXP.PAIN.SOA ---
[facility] Disclaimer: The information contained in this section may have been updated after the patient was seen, as this information can be updated by other users. Medical History Kidney stone Chronic kidney disease Urinary tract infection Pneumonia History of COVID-19 Endometriosis Pelvic inflammatory disease (PID) History of stroke Osteoarthritis Fibromyalgia History of diverticulitis Irritable bowel syndrome (IBS) History of gastroesophageal reflux (GERD) Hypothyroid Diabetes mellitus, type 2 Hyperlipidemia Hypertension History of anemia Surgical History H/O thyroidectomy H/O colonoscopy H/O shoulder surgery History of hysterectomy History of tonsillectomy History of cholecystectomy Family History Father Throat cancer Family history of abdominal aortic aneurysm Mother Pancreatic cancer Family history of diabetes mellitus type II Family history of stroke Grandfather Family history of myocardial infarction Social History Smoking Status: Never smoker alcohol intake: never substance use type: denies use current occupational status: other Travel in the last 8 weeks: None household members: spouse housing: house caffeine: Yes (daily) PM Subjective & Objective Subjective Subjective:: Patient is a pleasant 69-year-old female who presents today for follow-up of lumbar epidural steroid injection L5-S1 on 11/02/2024. Today she rates her pain a 1 out of 10. She denies any new falls or injuries. She does state that she had at least 80 to 90% improvement following this procedure and feels like it is still working well. Patient states that she does still have some symptoms into her legs but it is definitely not like what it was. Patient does also make mention that her is now in remission. Patient is currently prescribed gabapentin, baclofen and ropinirole from her primary care. Her Manjit has been reviewed and is appropriate. Review of Systems: General: No recent weight changes, no fever, no sleep disturbances Respiratory: No cough, no shortness of air, no recurring pulmonary infections Cardiovascular/peripheral vascular: No chest pain, no palpitations, no edema, no shortness of breath Gastrointestinal: No new onset incontinence, normal bowel movements reported Genitourinary: No new onset incontinence Musculoskeletal: Low back pain Psychiatric: [Normal mood/affect] Neurological: [Denies weakness in extremities], [denies balance issues] Pain at rest (0-10 scale): 1 Objective Objective:: Physical Exam: General: Alert and oriented x3, no acute distress, pleasant and cooperative Lungs: Respirations even and unlabored, symmetrical chest expansion Eyes: PERRL Musculoskeletal: Flexion and extension of lumbar [spine] somewhat guarded secondary to pain, [antalgic gait noted] Neurological: Speech clear, no gross sensory deficit Has patient had previous pain injection?: Yes Percent improvement in pain since last injection: 80 to 90% Conservative treatment options previously tried: Home exercise plan Length of treatment: Longer than 12 weeks Meds Home Medications and Allergies Home Medications ?Medication ?Instructions ?Recorded ?Confirmed ?Type calcium 600 mg (as 1 cap PO DAILY Supplement 10/23/17 11/02/24 History carbonate)-vitamin D3 5 mcg (200 unit) capsule (Calcium 600 + D(3)) cyanocobalamin (vitamin B-12) 1,000 mcg PO DAILY Supplement 10/23/17 11/02/24 History 1,000 mcg tablet (Vitamin B-12) docusate sodium 100 mg capsule 300 mg PO QHS constipation 10/23/17 11/02/24 History (Dulcolax Stool Softener (docusate)) gabapentin 300 mg capsule 300 mg PO BID Pain 90 days 10/23/17 11/02/24 History insulin human U-100 NPH-regulr 14 unit SUB-Q QAM dm 10/23/17 11/02/24 History 70-30 mix 100 unit/mL subcutaneous susp (Novolin 70/30 U-100 Insulin) levothyroxine 50 mcg tablet 50 mcg PO DAILY thyroid 90 days 10/23/17 11/02/24 History losartan 50 mg tablet 50 mg PO DAILY bp 90 days 10/23/17 11/02/24 History metformin 500 mg tablet 1,000 mg PO BID Diabetes 90 days 10/23/17 11/02/24 History pyridoxine (vitamin B6) 100 mg 100 mg PO HS Supplement 10/23/17 11/02/24 History tablet (Vitamin B-6) rosuvastatin 10 mg tablet 10 mg PO HS Cholesterol 90 days 08/20/18 11/02/24 History insulin detemir U-100 100 unit/mL 15 unit SQ HS dm 12/10/18 11/02/24 History (3 mL) subcutaneous pen loratadine-pseudoephedrine ER 10 1 each PO HS allergies 12/10/18 11/02/24 History mg-240 mg tablet,extended [id number] potassium 99 mg tablet 99 mg PO HS Supplement 12/10/18 11/02/24 History ferrous sulfate 325 mg (65 mg 325 mg PO DAILY Supplement 01/25/19 11/02/24 History iron) tablet pantoprazole 40 mg tablet,delayed 40 mg PO BID GERD 01/25/19 11/02/24 History release mupirocin 2 % topical ointment 1 ea topical DAILY . 11/05/21 11/02/24 History albuterol sulfate 2.5 mg/3 mL 2.5 mg inhalation QID PRN asthma 08/16/22 11/02/24 History (0.083 %) solution for nebulization aspirin 325 mg capsule 325 mg PO DAILY Blood thinner 08/16/22 11/02/24 History baclofen 10 mg tablet 10 mg PO DAILY Pain 08/16/22 11/02/24 History citicoline 500 mg capsule 1 mg PO DAILY . 08/16/22 11/02/24 History (Cognitive Health) clobetasol 0.05 % topical cream 1 applic topical HS . 08/16/22 11/02/24 History multivitamin 1 tab PO DAILY Supplement 08/16/22 11/02/24 History pumpkin seed extract-soy germ 300 1 cap PO DAILY Supplement 08/16/22 11/02/24 History mg capsule (Azo Bladder Control) semaglutide 7 mg tablet (Rybelsus) 7 mg PO DAILY . 08/16/22 11/02/24 History hydrocodone 5 mg-acetaminophen 325 1 tab PO Q6H PRN pain 3 days #12 10/22/23 11/02/24 Rx mg tablet tabs diazepam 5 mg tablet 5 mg PO DAILY 02/19/24 11/02/24 History insulin glargine U-300 conc 300 30 unit SQ HS 02/19/24 11/02/24 History unit/mL (3 mL) subcutaneous pen (Toujeo Max U-300 SoloStar) ropinirole 0.5 mg tablet 0.5 mg PO BID 02/19/24 11/02/24 History New Prescriptions to Start Prescriptions: Allergies Allergy/AdvReac Type Severity Reaction Status Date / Time clonazepam Allergy Severe I-HIVES Verified 10/21/24 10:39 diazepam Allergy Severe I-HIVES Verified 10/21/24 10:39 meperidine Allergy Severe HEMORRHAGE\ Verified 10/21/24 10:39 Penicillins Allergy Severe COMA Verified 10/21/24 10:39 tegaserod (From Zelnorm) Allergy Intermediate I-HIVES Verified 10/21/24 10:39 promethazine Allergy Mild HIVES,NAUSE Verified 10/21/24 10:39 A tramadol Allergy Mild I-HIVES Verified 10/21/24 10:39 canagliflozin (From Invokana) Allergy Unknown Verified 10/21/24 10:39 capsaicin (From Capzasin) Allergy Unknown Blister Verified 10/21/24 10:39 duloxetine (From Cymbalta) Allergy Unknown Verified 10/21/24 10:39 menthol (From Capzasin) Allergy Unknown Blister Verified 10/21/24 10:39 metformin (From Janumet) Allergy Unknown Verified 10/21/24 10:39 sitagliptin (From Janumet) Allergy Unknown Verified 10/21/24 10:39 empagliflozin (From Allergy Hives Verified 10/21/24 10:39 Jardiance) lisinopril AdvReac Cough Verified 10/21/24 10:39 CRANBERRIES Allergy Unknown I-HIVES Uncoded 10/21/24 10:39 Assessment and Plan *Assessment and plan (1) Lumbar radiculopathy: Status: Acute Category: Medical Code(s): M54.16 - Radiculopathy, lumbar region (2) Degenerative disc disease: Status: Acute Category: Medical Plan Patient has had significant improvement and does not require any additional injection therapy at this time. Patient will return to clinic in 6 weeks for reevaluation of symptoms and plan of care.\ Patient has been instructed to contact the clinic with any concerns before the next appointment. Dr. Jones has reviewed this note and agrees with this plan of care. This note was dictated using voice recognition software and make contain errors or omissions. All injections are used with Lidocaine, Bupivacaine and Depo Medrol. Occasionally urine drug screen is needed to verify patient's compliance with our office pain contract. This is ordered based off specific treatments related to chronic pain with the potential to abuse certain medications.
[2024-11-22 15:34] VITALS: BP 138/85; PULSE 95; RESP 14; O2SAT 97
== END 2024-11-22 23:59 | disposition home or self-care (01) ==
LOC: SC.PAIN 14:49
PROVIDERS: PCP Internal Medicine Adolescent Medicine; Visit Provider Nurse Practitioner Family
DX: M51.16 Intervertebral disc disorders with radiculopathy, lumbar region (principal); Z79.899 Other long term (current) drug therapy
CPT/HCPCS: 99212; G0463

== ENCOUNTER 2024-12-30 15:02 | Outpatient (POV) | payer MEDICARE, SELFPAY ==
--- NOTE | 2024-12-30 15:07 | EXP.PAIN.SOA ---
[facility] Disclaimer: The information contained in this section may have been updated after the patient was seen, as this information can be updated by other users. Medical History Kidney stone Chronic kidney disease Urinary tract infection Pneumonia History of COVID-19 Endometriosis Pelvic inflammatory disease (PID) History of stroke Osteoarthritis Fibromyalgia History of diverticulitis Irritable bowel syndrome (IBS) History of gastroesophageal reflux (GERD) Hypothyroid Diabetes mellitus, type 2 Hyperlipidemia Hypertension History of anemia Surgical History H/O thyroidectomy H/O colonoscopy H/O shoulder surgery History of hysterectomy History of tonsillectomy History of cholecystectomy Family History Father Throat cancer Family history of abdominal aortic aneurysm Mother Pancreatic cancer Family history of diabetes mellitus type II Family history of stroke Grandfather Family history of myocardial infarction Social History Smoking Status: Never smoker alcohol intake: never substance use type: denies use current occupational status: other Travel in the last 8 weeks?: None household members: spouse housing: house caffeine: Yes (daily) PM Subjective & Objective Subjective Subjective:: Patient is a pleasant 69-year-old female who presents today for 6-week follow-up. Today she rates her pain 1 out of 10. She denies any new falls or injuries. She states she feels like her last injection is still working well. Patient did previously have her last lumbar epidural steroid injection L5-S1 on November 02 with 80 to 90% improvement. She does state that she had a spot pop up on her right heel about 2 weeks ago that did bust open but it is already healed and looking better. Patient denies any other changes. She does state that her has recently had lab work and his levels are all going down and he has been declared cancer free.Patient is prescribed gabapentin, baclofen and ropinirole from her PCP. Her Manjit has been reviewed. Review of Systems: General: No recent weight changes, no fever, no sleep disturbances Respiratory: No cough, no shortness of air, no recurring pulmonary infections Cardiovascular/peripheral vascular: No chest pain, no palpitations, no edema, no shortness of breath Gastrointestinal: No new onset incontinence, normal bowel movements reported Genitourinary: No new onset incontinence Musculoskeletal: Low back pain Psychiatric: [Normal mood/affect] Neurological: [Denies weakness in extremities], [denies balance issues] Pain at rest (0-10 scale): 1 Objective Objective:: Physical Exam: General: Alert and oriented x3, no acute distress, pleasant and cooperative Lungs: Respirations even and unlabored, symmetrical chest expansion Eyes: PERRL Musculoskeletal: Flexion and extension of lumbar [spine] somewhat guarded secondary to pain, [antalgic gait noted] Neurological: Speech clear, no gross sensory deficit Has patient had previous pain injection?: No Conservative treatment options previously tried: Home exercise plan Length of treatment: Longer than 12 weeks Meds Home Medications and Allergies Home Medications ?Medication ?Instructions ?Recorded ?Confirmed ?Type calcium 600 mg (as 1 cap PO DAILY Supplement 10/23/17 11/22/24 History carbonate)-vitamin D3 5 mcg (200 unit) capsule (Calcium 600 + D(3)) cyanocobalamin (vitamin B-12) 1,000 mcg PO DAILY Supplement 10/23/17 11/22/24 History 1,000 mcg tablet (Vitamin B-12) docusate sodium 100 mg capsule 300 mg PO QHS constipation 10/23/17 11/22/24 History (Dulcolax Stool Softener (docusate)) gabapentin 300 mg capsule 300 mg PO BID Pain 90 days 10/23/17 11/22/24 History insulin human U-100 NPH-regulr 14 unit SUB-Q QAM dm 10/23/17 11/22/24 History 70-30 mix 100 unit/mL subcutaneous susp (Novolin 70/30 U-100 Insulin) levothyroxine 50 mcg tablet 50 mcg PO DAILY thyroid 90 days 10/23/17 11/22/24 History losartan 50 mg tablet 50 mg PO DAILY bp 90 days 10/23/17 11/22/24 History metformin 500 mg tablet 1,000 mg PO BID Diabetes 90 days 10/23/17 11/22/24 History pyridoxine (vitamin B6) 100 mg 100 mg PO HS Supplement 10/23/17 11/22/24 History tablet (Vitamin B-6) rosuvastatin 10 mg tablet 10 mg PO HS Cholesterol 90 days 08/20/18 11/22/24 History insulin detemir U-100 100 unit/mL 15 unit SQ HS dm 05/02/19 04/14/25 History (3 mL) subcutaneous pen loratadine-pseudoephedrine ER 10 1 each PO HS allergies 12/10/18 11/22/24 History mg-240 mg tablet,extended [id number] potassium 99 mg tablet 99 mg PO HS Supplement 12/10/18 11/22/24 History ferrous sulfate 325 mg (65 mg 325 mg PO DAILY Supplement 01/25/19 11/22/24 History iron) tablet pantoprazole 40 mg tablet,delayed 40 mg PO BID GERD 01/25/19 11/22/24 History release mupirocin 2 % topical ointment 1 ea topical DAILY . 11/05/21 11/22/24 History albuterol sulfate 2.5 mg/3 mL 2.5 mg inhalation QID PRN asthma 08/16/22 11/22/24 History (0.083 %) solution for nebulization aspirin 325 mg capsule 325 mg PO DAILY Blood thinner 08/16/22 11/22/24 History baclofen 10 mg tablet 10 mg PO DAILY Pain 08/16/22 11/22/24 History citicoline 500 mg capsule 1 mg PO DAILY . 08/16/22 11/22/24 History (Cognitive Health) clobetasol 0.05 % topical cream 1 applic topical HS . 08/16/22 11/22/24 History multivitamin 1 tab PO DAILY Supplement 08/16/22 11/22/24 History pumpkin seed extract-soy germ 300 1 cap PO DAILY Supplement 08/16/22 11/22/24 History mg capsule (Azo Bladder Control) semaglutide 7 mg tablet (Rybelsus) 7 mg PO DAILY . 08/16/22 11/22/24 History hydrocodone 5 mg-acetaminophen 325 1 tab PO Q6H PRN pain 3 days #12 10/22/23 11/22/24 Rx mg tablet tabs diazepam 5 mg tablet 5 mg PO DAILY 02/19/24 11/22/24 History insulin glargine U-300 conc 300 30 unit SQ HS 02/19/24 11/22/24 History unit/mL (3 mL) subcutaneous pen (Toujeo Max U-300 SoloStar) ropinirole 0.5 mg tablet 0.5 mg PO BID 02/19/24 11/22/24 History New Prescriptions to Start Prescriptions: Allergies Allergy/AdvReac Type Severity Reaction Status Date / Time clonazepam Allergy Severe I-HIVES Verified 10/21/24 10:39 diazepam Allergy Severe I-HIVES Verified 10/21/24 10:39 meperidine Allergy Severe HEMORRHAGE\ Verified 10/21/24 10:39 Penicillins Allergy Severe COMA Verified 10/21/24 10:39 tegaserod (From Zelnorm) Allergy Intermediate I-HIVES Verified 10/21/24 10:39 promethazine Allergy Mild HIVES,NAUSE Verified 10/21/24 10:39 A tramadol Allergy Mild I-HIVES Verified 10/21/24 10:39 canagliflozin (From Invokana) Allergy Unknown Verified 10/21/24 10:39 capsaicin (From Capzasin) Allergy Unknown Blister Verified 10/21/24 10:39 duloxetine (From Cymbalta) Allergy Unknown Verified 10/21/24 10:39 menthol (From Capzasin) Allergy Unknown Blister Verified 10/21/24 10:39 metformin (From Janumet) Allergy Unknown Verified 10/21/24 10:39 sitagliptin (From Janumet) Allergy Unknown Verified 10/21/24 10:39 empagliflozin (From Allergy Hives Verified 10/21/24 10:39 Jardiance) lisinopril AdvReac Cough Verified 10/21/24 10:39 CRANBERRIES Allergy Unknown I-HIVES Uncoded 10/21/24 10:39 Assessment and Plan *Assessment and plan (1) Lumbar radiculopathy: Status: Acute Category: Medical Code(s): M54.16 - Radiculopathy, lumbar region (2) Degenerative disc disease: Status: Acute Category: Medical Plan Patient continues to do well with her previous injection and does not require any additional injection therapy at this time. Patient will return to clinic in 3 months for reevaluation of symptoms and plan of care. Patient has been instructed to contact the clinic with any concerns before the next appointment. Dr. Jones has reviewed this note and agrees with this plan of care. This note was dictated using voice recognition software and make contain errors or omissions. All injections are used with Lidocaine, Bupivacaine and dexamethasone. Occasionally urine drug screen is needed to verify patient's compliance with our office pain contract. This is ordered based off specific treatments related to chronic pain with the potential to abuse certain medications.
[2024-12-30 15:20] VITALS: BP 117/54; PULSE 87; RESP 18; O2SAT 94; BMI 38.0
== END 2024-12-30 23:59 | disposition home or self-care (01) ==
LOC: SC.PAIN 15:05
PROVIDERS: PCP Internal Medicine Adolescent Medicine; Visit Provider Nurse Practitioner Family
DX: M54.16 Radiculopathy, lumbar region (principal); Z79.899 Other long term (current) drug therapy
CPT/HCPCS: 99212; G0463

== ENCOUNTER 2025-01-14 09:40 | Outpatient (CLI) | payer MEDICARE, SELFPAY ==
--- NOTE | 2025-01-14 09:43 | FL_ITS ---
FINAL REPORT CLINICAL HISTORY: PHARYNOGEOSOPHAGEAL 1.43 fluoro time 2796.91 dap FINDINGS: UPPER GI EXAM HISTORY: Oral pharyngeal dysphagia. PROCEDURE: The patient ingested barium. Effervescent crystals were also administered. Spot and overhead films were obtained. FINDINGS: The esophagus is normal. There is no hiatal hernia. There is no gastroesophageal reflux. Peristalsis is normal. While there is the appearance of minimal narrowing of the distal esophagus a 13 mm barium tablet passed through this without delay. The rugal fold pattern of the stomach is normal. The duodenal bulb is normal. Fluoroscopy time: 1 minute 43 seconds Fluoro dose: 2796.91 DAP in uGym2 IMPRESSION: Normal upper GI. Reviewed, Interpreted and Dictated by Eduarda Nunn MD Transcribed by FUENTES Sommer Authenticated and [facility]
[2025-01-14] MEDS: BARIUM SULFATE (E-Z-HD 340GM);135ML BOTTLE 135 ML PO (10:23)
[2025-01-14] MEDS: BARIUM SULFATE(E-Z-AC);750ML BOTTLE 750 ML PO (10:23)
[2025-01-14] MEDS: E-Z-GASII EFFERVESCENT GRANULES;1PK 1 EACH PO (10:24)
== END 2025-01-14 23:59 | disposition home or self-care (01) ==
LOC: RAD 09:41
PROVIDERS: PCP Internal Medicine Adolescent Medicine; Visit Provider Internal Medicine Adolescent Medicine
DX: R13.14 Dysphagia, pharyngoesophageal phase (principal)
CPT/HCPCS: 74246

== ENCOUNTER 2025-01-18 14:13 | Outpatient (CLI) | payer MEDICARE, SELFPAY ==
--- NOTE | 2025-01-18 14:22 | MM_ITS ---
PROCEDURE INFORMATION: Exam: US Right Breast, Complete MG Right Diagnostic Breast Tomosynthesis MG Bilateral Diagnostic Mammography Exam date and time: 01/18/2025 2:52 PM Age: 69 years old Clinical indication: Right breast pain; Additional info: Mass upper quad of right breast TECHNIQUE: Imaging protocol: Complete ultrasound of all four quadrants of the right breast and the retroareolar regions, including ultrasound of the axilla when performed. Right Diagnostic tomosynthesis and 2D mammography including computer-aided detection (CAD) when performed. Unilateral or bilateral exam. Diagnostic mammography of the bilateral breasts including computer-aided detection (CAD) when performed. Bilateral exam. COMPARISON: US BREAST RT COMPLETE 05/15/2021 1:54 PM FINDINGS: MAMMOGRAPHY: Breast composition: The breasts are almost entirely fatty. Breast mammogram findings: No stellate mass, architectural distortion, or suspicious microcalcifications to suggest malignancy. No skin thickening or axillary adenopathy. Specifically, in the upper quadrant of the right breast, there is no suspicious mass. ULTRASOUND: Breast ultrasound findings: Scanning of the right breast in the upper outer quadrant 11 o'clock axis, area of pain and lump is performed and demonstrates no suspicious underlying sonographic abnormality. Complete scanning of the right breast demonstrates no suspicious mass, shadowing, or distortion. A cyst is seen at the 9 o'clock axis, 5 cm from the nipple measuring 0.3 x 0.4 x 0.4 cm. This is probably benign. There is no axillary adenopathy. IMPRESSION: 1. No suspicious finding in the right breast to correlate to the area of pain and palpable concern in the right upper outer quadrant. Continued clinical monitoring is recommended. Further evaluation of a palpable abnormality should be based on clinical grounds regardless of radiographic findings or lack thereof. 2. Probably benign complicated cysts in the right breast at the 9 o'clock axis, 5 cm from the nipple. A follow-up right breast mammogram and ultrasound in 6 months is recommended for close surveillance of this finding. ASSESSMENT: BI-RADS Category 3: Probably benign.
== END 2025-01-18 23:59 | disposition home or self-care (01) ==
LOC: RAD 14:14
PROVIDERS: PCP Internal Medicine Adolescent Medicine; Visit Provider Internal Medicine Adolescent Medicine
DX: N60.01 Solitary cyst of right breast (principal); R92.313 Mammographic fatty tissue density, bilateral breasts
CPT/HCPCS: 76641; 77062; 77066; G0279

== ENCOUNTER 2025-01-20 10:58 | Outpatient (CLI) | payer MEDICARE, SELFPAY ==
[2025-01-20 11:59] LABS: Basophils # 0.1 K/mm3 (0-0.2); Basophils % 1.1 % (0.1-2.0); Eosinophils # 0.5 Kmm3 (0.0-0.4); Eosinophils % 6.4 % (0.1-12.0); Hematocrit 43.2 % (37.0-47.0); Hemoglobin 13.7 g/dL (12.2-16.2); Immature Granulocytes # 0.01 10^3uL; Immature Granulocytes % 0.1 %; Lymphocytes # 2.3 K/mm3 (0.7-4.5); Lymphocytes % 28.2 % (10-50); Mean Corpuscular HGB Conc 31.7 g/dL (31.8-35.4); Mean Corpuscular Hemoglobin 29.5 pg (27.0-31.2); Mean Corpuscular Volume 93.1 fl (81-99); Mean Platelet Volume 10.8 fl (7.4-10.4); Monocytes # 0.5 K/mm3 (0.1-1.0); Monocytes % 5.9 % (1.7-9.3); Neutrophils # 4.7 K/mm3 (1.8-7.8); Neutrophils % 58.3 % (37.0-80.0); Nucleated Red Blood Cells # 0 10^3/uL; Nucleated Red Blood Cells % 0 %; Platelet Count 234 K/mm3 (142-424); Red Blood Count 4.64 M/mm3 (4.20-5.40); Red Cell Distribution Width 14.5 % (11.5-17.5); Red Cell Distribution Width-SD 49.1 fL; White Blood Count 8.1 K/mm3 (4.8-10.8)
[2025-01-20 12:20] LABS: Chol/HDL Ratio 3.4 (1-3.5); Cholesterol 115 mg/dl (140-200); HDL Cholesterol 34 mg/dl (40-60); Triglycerides 112 mg/dl (30-150); VLDL Cholesterol 22 mg/dL (0-40)
[2025-01-20 12:33] LABS: Direct LDL Cholesterol 47.14 mg/dL (100-129)
[2025-01-20 12:37] LABS: 25-OH Vitamin D, Total 43.2 ng/mL (30-100)
[2025-01-20 14:44] LABS: Free Thyroxine Index 3.2 ug/dL (5.93-13.13); T4 (Thyroxine) 9.7 ug/dl (5.53-11.0); Triiodothryronine (T3) Uptake 33 % (23.5-40.5)
[2025-01-20 14:58] LABS: Thyroid Stimulating Hormone < 0.02 uIU/mL (0.465-4.68)
[2025-01-25 14:09] LABS: Albumin Level 3.7 g/dl (3.5-5.0); Chloride 111 mmol/L (98-107); Potassium 4.7 mmoL/L (3.5-5.1); Sodium 144 mmol/L (136-145)
[2025-01-25 14:11] LABS: Blood Urea Nitrogen 11 mg/dl (7-17); Estimated Glomerular Filt Rate 83 ml/min (>60); GFR (African American) 100 ML/MIN (>60)
[2025-01-25 14:12] LABS: Alanine Aminotransferase 19 U/L (12-78); Albumin/Globulin Ratio 1.1 (1.1-1.8); Alkaline Phosphatase 83 U/L (38-126); Anion Gap 10.7 mEq/L (5-15); Aspartate Amino Transferase 28 U/L (14-36); Bilirubin,Total 0.5 mg/dl (0.2-1.3); Calcium 9.4 mg/dl (8.4-10.2); Carbon Dioxide 27 mmol/L (22.0-30.0); Globulin 3.5 g/dL (1.3-3.2); Glucose 109 mg/dl (74-100); Total Protein,Serum 7.2 g/dl (6.3-8.2)
== END 2025-01-20 23:59 | disposition home or self-care (01) ==
LOC: LAB 10:59
PROVIDERS: PCP Internal Medicine Adolescent Medicine; Visit Provider Internal Medicine Adolescent Medicine
DX: E11.42 Type 2 diabetes mellitus with diabetic polyneuropathy (principal); M85.88 Other specified disorders of bone density and structure, other site; E03.9 Hypothyroidism, unspecified
CPT/HCPCS: 36415; 80053; 80061; 82306; 84436; 84443; 84479; 85025

== ENCOUNTER 2025-03-03 09:13 | Outpatient (CLI) | payer MEDICARE, SELFPAY ==
--- NOTE | 2025-03-03 09:17 | XR_ITS ---
FINAL REPORT CLINICAL HISTORY: Left shoulder pain since fx in October of 2023 COMPARISON: 09/09/2024 FINDINGS: LEFT SHOULDER Two views of the left shoulder were obtained. There is a transverse fracture of the humeral neck. There is nonunion of the fracture with 6 mm of separation at the fracture margins. There are mild degenerative changes of the glenohumeral and acromioclavicular joints. Osteopenia is noted. IMPRESSION: Nonunion of the humeral neck fracture. Reviewed, Interpreted and Dictated by Brianna Eubanks MD Transcribed by Tanisha Li Authenticated and [facility]
--- OUTSIDE RECORDS SUMMARY | 2025-03-03 09:18 | XMS_ITS | Clinical Summary ---
Author Organization [facility] Address [address] [place] [address] Care Team Providers Care Salvationist Name Role Phone Ezra Leyva MD Primary Care Provider [phone] Allergies Active Allergy Reactions Criticality Noted Date Comments Canagliflozin Hives High 02/09/2024 Capsaicin Hives 02/09/2024 Clonazepam Anaphylaxis,Hives High 02/09/2024 Cranberry Hives 02/09/2024 Cranberry Extract Hives 11/19/2021 Diazepam Anaphylaxis,Hives High 02/09/2024 Duloxetine Hcl Hives 02/09/2024 Empagliflozin Other (See Comments) 02/09/2024 YEAST INFECTIONS PER PT Lisinopril Other (See Comments) 02/09/2024 CHRONIC COUGH Bupivacaine Hives 02/09/2024 Menthol Anaphylaxis High 02/09/2024 Meperidine Other (See Comments) High 02/09/2024 COMA LIKE STATE PER PT Metformin Other (See Comments) 02/09/2024 YEAST INFECTIONS PER PT Penicillins Other (See Comments) High 02/09/2024 COMA LIKE STATE PER PT Promethazine Nausea And Vomiting 02/09/2024 Sitagliptin Other (See Comments) 02/09/2024 YEAST INFECTIONS Tramadol Hives 02/09/2024 Medications losartan (COZAAR) 50 MG tablet Take 1 tablet by mouth Daily. Active rosuvastatin (CRESTOR) 10 MG tablet Take 1 tablet by mouth Daily. Active metFORMIN (GLUCOPHAGE) 500 MG tablet Take 2 tablets by mouth 2 (Two) Times a Day With Meals. Active ferrous sulfate 325 (65 FE) MG tablet Take 1 tablet by mouth Daily With Breakfast. Active docusate sodium (COLACE) 100 MG capsule Take 3 capsules by mouth Every Night. Active loratadine-pseu doephedrine (Claritin-D 24 Hour) 10-240 MG per 24 hr tablet Take 1 tablet by mouth Daily. Active Pumpkin Seed-Soy Germ (AZO BLADDER CONTROL/GO-LESS PO) Take by mouth. 1 in the am and 1 in the pm Active aspirin 325 MG tablet Take 4 tablets by mouth Daily. Active pantoprazole (PROTONIX) 40 MG EC tablet Take 1 tablet by mouth Daily. Active Blood Glucose Monitoring Suppl ([employer] Confirm Glucose Monitor) w/Device kit Use. Injects 14 units once daily Takes Cognium Brain Supplement BID Active albuterol sulfate HFA 108 (90 Base) MCG/ACT inhaler Inhale 2 puffs Every 4 (Four) Hours As Needed for Wheezing. inhale 0.5 milliliter by inhalation route 3- 4 times every day via nebulizer as needed Active gabapentin (NEURONTIN) 300 MG capsule Take 1 capsule by mouth 4 (Four) Times a Day. Active vitamin B-6 (PYRIDOXINE) 100 MG tablet Take 1 tablet by mouth Daily. Active vitamin B-12 (CYANOCOBALAMIN ) 1000 MCG tablet Take 1 tablet by mouth Daily. Active Cholecalciferol 25 MCG (1000 UT) tablet Take 1 tablet by mouth Daily. Active Semaglutide (Rybelsus) 7 MG tablet Take by mouth. Activ e levothyroxine (SYNTHROID, LEVOTHROID) 50 MCG tablet Take 1 tablet by mouth Daily. Active Calcium Carb-Cholecalci ferol (Calcium 600+D3) 600-5 MG-MCG tablet Take by mouth. A ctive Mis Natural Products (NEURIVA PO) Take by mouth. Neuriva Original 100 mg-100 mg capsule Active Collagen-Vitami n C (Collagen Skin Renewal) 833-30 MG tablet Take by mouth Daily. Active Toujeo Max SoloStar 300 UNIT/ML solution pen-injector injection Inject under the skin into the appropriate area as directed. 4 Active venlafaxine XR (EFFEXOR-XR) 37.5 MG 24 hr capsule take 1 capsule by mouth once daily 4 Active rOPINIRole (REQUIP) 1 MG tablet take 1 tablet by mouth twice daily 4 Active adalimumab (HUMIRA) 40 MG/0.8ML Prefilled Syringe Kit injection Inject 0.8 mL under the skin into the appropriate area as directed Every 14 (Fourteen) Days. 0.8 mL 5 4 Active baclofen (LIORESAL) 10 MG tablet Take 1 tablet by mouth twice daily 180 tablet 5 Active Active Problems Problem Noted Date Diagnosed Date Encounter for medication monitoring 02/10/2024 Assessment & Plan (02/10/2024 1:36 PM EDT): Negative hepatitis panel 01/28/24 Diabetes mellitus with diabetic polyneuropathy 0 02/10/2024 Hypothyroidism 02/10/2024 Microcytic anemia 02/10/2024 Restrictive lung disease due to kyphoscoliosis 0 02/10/2024 Xerosis of skin 02/10/2024 Ankylosing spondylitis 02/06/2024 Assessment & Plan (07/02/2024 1:48 PM EST): * She established care with us here at the [facility] as of 08/13/2019. She was HLA B27 +, AUTUMN +, RF and CCP Negative. Her CXR showed ankylosing of the thoracic spine. * She has a daughter with RA. * Medications/treatments/interventions tried include: Tylenol, Cymbalta (allergic), gabapentin, Tramadol (allergic), she has seen a chiropractor, She has a history of stomach ulcers (she tries to limit/avoid NSAIDS), ibuprofen, Morphine, Humira, Baclofen, venlafaxine, she has seen pain management specialists (Dr. Jones), she has seen orthopaedic surgeons, physical therapy 1. Continue Humira. Refill today 2. Labs ordered today 3. Follow up in 4-6 months. 4. She has seen a chiropractor PRN. 5. She takes aspirin PRN. 6. Tylenol PRN is ok as directed. 7. She is intolerant/allergic to Tramadol. 8. She takes Baclofen PRN for muscle pain/spasms. Refill today 9. We gave her a handout on ankylosing spondylitis to take home and review 10. She avoids/limits oral NSAIDs due to GI issues 11. Her prognosis is guarded. She has chronic pain Orders: C-reactive Protein; Future Comprehensive Metabolic Panel; Future CBC Auto Differential; Future Sedimentation Rate; Future Assessment & Plan (02/10/2024 1:37 PM EDT): * She established care with us here at the [facility] as of 08/13/2019. She was HLA B27 +, AUTUMN +, RF and CCP Negative. Her CXR showed ankylosing of the thoracic spine. * She has a daughter with RA. * Medications/treatments/interventions tried include: Tylenol, Cymbalta (allergic), gabapentin, Tramadol (allergic), she has seen a chiropractor, She has a history of stomach ulcers (she tries to limit/avoid NSAIDS), ibuprofen, Morphine, Humira, Baclofen. 1. Continue Humira. Refill today 2. Labs ordered today to do prior to next visit. Labs 01/28/24 stable. 3. Follow up in 4-6 months. 4. She has seen a chiropractor PRN. 5. She takes aspirin PRN. 6. Tylenol PRN is ok as directed. 7. She is intolerant/allergic to Tramadol. 8. She takes Baclofen PRN for muscle pain/spasms. Refill today 9. She avoids/limits oral NSAIDs due to GI issues 10. Her prognosis is guarded. 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 * Started 10/18/2019 1. Hold if the patient develops infection. 2. Avoid live vaccines while on this medication. 3. No recent serious infections 4. No injection site reactions. 5. Also hold this medication perioperatively if the patient is going to have a surgical procedure Orders: C-reactive Protein; Future Comprehensive Metabolic Panel; Future CBC Auto Differential; Future Sedimentation Rate; Future Assessment & Plan (02/06/2024 1:44 PM EDT): * Humira 40 mg SQ every 14 days for ankylosing spondylitis. * Started 10/18/2019. 1. Hold if the patient develops infection. 2. Avoid live vaccines while on this medication. 3. No recent serious infections 4. No injection site reactions. 5. Also hold this medication perioperatively if the patient is going to have a surgical procedure Osteoarthritis 02/06/2024 Assessment & Plan (07/02/2024 1:48 PM EST): 1. Tylenol PRN is fine as directed. 2. She lists that she is allergic/intolerant of Tramadol. 3. Weight loss would be helpful. 4. She has seen a chiropractor. 5. She takes aspirin PRN 6. She has taken gabapentin for neuropathic pain 7. She limits/avoids oral NSAIDS due to GI issues 8. She has seen orthopaedic surgeons 9. She saw pain management (Dr. Jones) 10. She had hip injection 11. She has done some physical therapy Orders: C-reactive Protein; Future Comprehensive Metabolic Panel; Future CBC Auto Differential; Future Sedimentation Rate; Future Assessment & Plan (02/10/2024 1:37 PM EDT): 1. Tylenol PRN is fine as directed. 2. She lists that she is allergic/intolerant of Tramadol. 3. Weight loss would be helpful. 4. She has seen a chiropractor. 5. She takes aspirin PRN 6. She takes gabapentin for neuropathic pain from PCP 7. She limits/avoids oral NSAIDS due to GI issues 8. She fell and broke her left arm 10/2023. She is following with ortho Dr. Manfred Kelley. The fracture did not require surgery. Fibromyalgia 02/06/2024 Assessment & Plan (07/02/2024 1:48 PM EST): 1. H & P consistent with this diagnosis. 2. Encourage aerobic activity and sleep hygiene. 3. If she has not had a sleep study/consultation consider getting this done. 4. She does not take NSAIDs regularly due to history of stomach ulcers. 5. She will follow up with us in 4-6 months. 6. Weight loss would be helpful. 8. She has seen a chiropractor 9. She takes gabapentin per her PCP 10. She lists that she is allergic to Cymbalta 11. She lists that she is allergic to Tramadol. 12. Continue Baclofen PRN. Refill today 13. She has tried taking venlafaxine 14. She has seen pain management 15. She had a hip injection. 16. She has done some physical therapy Orders: C-reactive Protein; Future Comprehensive Metabolic Panel; Future CBC Auto Differential; Future Sedimentation Rate; Future Assessment & Plan (02/06/2024 1:44 PM EDT): * Medications/treatments/interventions tried include: Tylenol, Cymbalta (allergic), gabapentin, Tramadol (allergic), she has seen a chiropractor, She has a history of stomach ulcers (she tries to limit/avoid NSAIDS), ibuprofen, Morphine, Humira, Baclofen. 1. H & P consistent with this diagnosis. 2. Encourage aerobic activity and sleep hygiene. 3. If she has not had a sleep study/consultation consider getting this done. 4. She does not take NSAIDs regularly due to history of stomach ulcers. 5. She will follow up with us in 4-6 months. 6. Weight loss would be helpful. 8. She has seen a chiropractor 9. She takes gabapentin per her PCP 10. She lists that she is allergic to Cymbalta 11. She lists that she is allergic to Tramadol. 12. Continue Baclofen PRN. Refill today Other fatigue 02/06/2024 Assessment & Plan (02/10/2024 1:36 PM EDT): QTB negative 01/28/24 Family History Medical History Relation Name Comments Hypertension Daughter Rheum arthritis Daughter Aneurysm Father Arthritis Father Cancer Father Tremor Father Arthritis Mother Dementia Mother Pancreatic cancer Mother Parkinsonism Mother Gout Son Relation Name Status Comments Daughter Father Mother Son Social History Tobacco Use Types Packs/Day Years Used Date Smoking Tobacco: Never Smokeless Tobacco: Never Tobacco Cessation:Counseling Given: Not Answered Alcohol Use Standard Drinks/Week Comments Not Currently 0 (1 standard drink = 0.6 oz pur e alcohol) Comments Unknown Sex and Gender Information Value Date Recorded Sex Assigned at Not on file Legal Sex Female 8:48 AM EDT Gender Identity Not on file Sexual Orientation Not on file Last Filed Vital Signs Vital Sign Reading Time Taken Comments Blood Pressure 124/58 07/02/2024 1:26 PM EST Pulse 77 07/02/2024 1:26 PM EST Temperature 35.9 C (96.6 F) 07/02/2024 1:26 PM EST Respiratory Rate - - Oxygen Saturation - - Inhaled Oxygen Concentration - - Weight 108 kg (238 lb 8 oz) 07/02/2024 1:[address] Height 167.6 cm (5' 5.98 ) 07/02/2024 1:26 PM ES T Body Mass Index 38.51 07/02/2024 1:26 PM EST Plan of Treatment Health Maintenance Due Date Last Done Comments DXA SCAN 1954 COVID-19 Vaccine (#1) 1959 DIABETIC EYE EXAM 1964 DIABETIC FOOT EXAM 1964 URINE MICROALBUMIN-CREATININE RATIO (uACR) 1964 Pneumococcal Vaccine 50+ (1 of 2 - PCV) 1973 TDAP/TD VACCINES (1 - Tdap) 1973 ZOSTER VACCINE (1 of 2) 1973 MAMMOGRAM 1994 COLOGUARD 1999 COLON CANCER SCREENING 5 YEAR SIGMOIDOSCOPY 1999 COLONOSCOPY 1999 COLORECTAL CANCER SCREENING 1999 CT COLONOGRAPHY 1999 FECAL OCCULT BLOOD TEST 1999 FIT Testing (1 year) 1999 ANNUAL WELLNESS VISIT 12/15/2023 HEMOGLOBIN A1C 12/15/2023 HEPATITIS C SCREENING 12/15/2023 INFLUENZA VACCINE 05/11/2025 Insurance MEDICARE A & B Care Teams Salvationist Relationship Specialty Start Date End Date Ezra Leyva MD [address] [facility] [address] [place] [address] PCP - General Adolescent Medicine 12/06/23
--- OUTSIDE RECORDS SUMMARY | 2025-03-03 09:18 | XMS_ITS ---
Author Organization [facility] Address [address] [place] [address] Care Team Providers Care Lead Painter Name Role Phone Ezra Leyva MD Primary Care Provider [phone] Rheumatology - External Fill Status:Enrolled (Active) Start date:02/10/2024 Enrollment date:02/10/2024 Enrollment reason:Identified as being on target medication Current support & services provided:Benefits Investigation, External Pharmacy Dispensing Linked medications:Adalimumab (Active) Linked problems:Ankylosing spondylitis (Active) Case Team Name Relationship Phone Angela William Dianeticist Patient Ca re Superintendent Stevedoring William nSider Dianeticist Superintendent Stevedoring Brant Hebert PharmD Pharmacist Continued Care and Services Coordination
--- NOTE | 2025-03-03 14:15 | CT_ITS ---
FINAL REPORT TECHNIQUE: Thin section axial CT images with coronal and sagittal reformats were performed through the neck. This study was performed with techniques to keep radiation doses as low as reasonably achievable (ALARA). Individualized dose reduction techniques using automated exposure control or adjustment of mA and/or kV according to the patient''s size were employed. CLINICAL HISTORY: history of polyps and adhesions on the vocal cords FINDINGS: No adenopathy or mass lesion is present . Salivary glands are normal. The vocal cords are symmetric in position. 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 There is presumed left thyroidectomy. Right thyroid masses are noted. Largest mass measures 33 mm. There is a superior hyperdense mass measuring 18 mm. IMPRESSION: Small right internal laryngocele with symmetric appearance of the vocal cords. Right thyroid masses measuring up to 33 mm. Reviewed, Interpreted and Dictated by Brianna Eubanks MD Transcribed by Jaja Sierra Authenticated and [facility]
== END 2025-03-03 23:59 | disposition home or self-care (01) ==
LOC: RAD 09:14
PROVIDERS: PCP Internal Medicine Adolescent Medicine; Visit Provider Nurse Practitioner
DX: S42.212K Unspecified displaced fracture of surgical neck of left humerus, subsequent encounter for fracture with nonunion (principal); Q31.3 Laryngocele; E07.9 Disorder of thyroid, unspecified; Z86.018 Personal history of other benign neoplasm
CPT/HCPCS: 70490; 73030

== ENCOUNTER 2025-03-18 13:24 | Outpatient (CLI) | payer MEDICARE, SELFPAY ==
--- NOTE | 2025-03-18 | CA_ITS ---
APPROVED REPORT EXAM: Comprehensive 2D, Doppler, and color-flow Echocardiogram Operator Catalyst Concentration: RICHARD Cole, RVS Ht: 5 ft 5 in Wt: 279lbs BSA: 2.28 BP: 166/84 mmHg Indications: Edema, Obesity, Murmur Echo Enhancing Agent Comments: Technically limited windows due to body habitus 2D Dimensions IVSd 1.13 cm F: 0.6-1.0 LVEF (Visual) 60.00 % PWd 1.28 cm F: 0.6 - 1.0 LA Volume 52.80 mL LVDd 4.34 cm F: 3.9 - 5.3 LA Volume Index 23.16 mL/m2 (M/F) 16-34 LVDs 2.24 cm F: 2.2 - 3.5 Left Atrium 3.04 cm F: 2.7 - 3.8 M-Mode Dimensions LA Diam 4.22 cm (1.9-4.0) TAPSE 1.88 (<1.7) LV Diastology E Decel Time 280 (160-240 msec) E/A Ratio 1.12 MED A' 15.50 cm/s LAT A' 14.50 cm/s Aortic Valve JESÚS Index 0.95 cm2/m2 AoV Peak Rashi. 130.0 (50-130 cm/s) AI PHT 382.00 ms AO Peak GR. 6.80 mmHg AO Mean GR. 3.30 (<5 mmHg) AO VTI 25.6 (18-25 cm) JESÚS (VTI) 2.21 (2.5-4.5 cm2) Mitral Valve MV A Velocity 61.0 (40-130 cm/s) E/A Ratio 1.12 Pulmonary Valve PV Peak Velocity 88.0 (50-150 cm/s) Tricuspid Valve TR P. Velocity 225.00 cm/s RAP Estimate 10.00 mmHg RVSP 30.20 mmHg Left Ventricle The left ventricle is normal size. Left ventricular systolic function is normal. The left ventricular ejection fraction is within the normal range. There is increased left ventricular wall thickness. Proximal septal thickening is present. There is normal LV segmental wall motion. The left ventricular diastolic function is normal. LVEF is 65% Right Ventricle The right ventricle is normal size. The right ventricular systolic function is normal. Atria The left atrium size is normal. The right atrium size is normal. There is no color Doppler evidence of interatrial shunt. Aortic Valve The aortic valve is mildly thickened. There is no hemodynamically significant aortic valvular stenosis. Moderate aortic regurgitation is present. Mitral Valve The mitral valve is normal in structure. No evidence of mitral valve stenosis. Trace mitral regurgitation is present. Tricuspid Valve The tricuspid valve leaflets are thin and pliable. Mild tricuspid regurgitation. RVSP is 20-25 mmHg. Pulmonic Valve The pulmonary valve is grossly normal in structure. Trace pulmonic valve regurgitation is present. Great Vessels The aortic root is normal in size. IVC is normal in size and collapses >50% with inspiration. Pericardium There is no pericardial effusion. Other Information Study Quality: Technically Difficult Conclusion Technically difficult study. Normal biventricular size and systolic function. Moderate AI. Mild TR. Electronically signed by : Evelyne Da Silva MD 03/18/2025 15:04:41
--- OUTSIDE RECORDS SUMMARY | 2025-03-18 13:28 | XMS_ITS ---
Author Organization [facility] Address [address] [place] [address] Care Team Providers Care Elect Equip Maint Eng Name Role Phone Ezra Leyva MD Primary Care Provider [phone] Rheumatology - External Fill Status:Enrolled (Active) Start date:02/10/2024 Enrollment date:02/10/2024 Enrollment reason:Identified as being on target medication Current support & services provided:Benefits Investigation, External Pharmacy Dispensing Linked medications:Adalimumab (Active) Linked problems:Ankylosing spondylitis (Active) Case Team Name Relationship Phone Angela William Computer Bookkeeper Patient Ca re Metal Trimmer William Snider Computer Bookkeeper Metal Trimmer Brant Hebert PharmD Pharmacist Continued Care and Services Coordination
--- OUTSIDE RECORDS SUMMARY | 2025-03-18 13:28 | XMS_ITS | Clinical Summary ---
Author Organization [facility] Address [address] [place] [address] Care Team Providers Care Hospital Account Liaison Name Role Phone Ezra Leyva MD Primary Care Provider [phone] Allergies Active Allergy Reactions Criticality Noted Date [...] mouth Daily. Active Blood Glucose Monitoring Suppl ([employer] Confirm Glucose Monitor) w/Device kit Use. Injects [...] us here at the [facility] as of 08/13/2019. She was HLA B27 [...] us here at the [facility] as of 08/13/2019. She was HLA B27 [...] Insurance MEDICARE A & B Care Teams Hospital Account Liaison Relationship Specialty Start Date End Date Ezra Leyva MD [address] [facility] [address] [place] [address] PCP - General Adolescent Medicine 12/06/23
--- NOTE | 2025-03-18 14:00 | US_ITS ---
FINAL REPORT TECHNIQUE: Limited sonographic images of the thyroid were obtained. CLINICAL HISTORY: thyroid nod seen on ct FINDINGS: Patient is to this post left lobectomy. The right lobe of the thyroid measures 5.7 x 2.7 x 2.8 cm. There is a large mass in the right lobe measuring 3.8 x 2.6 cm which is predominantly hypoechoic and solid consistent with TR 4. IMPRESSION: Predominantly hypoechoic and predominantly solid large mass in the right lobe of the thyroid consistent with TR 4. Recommend biopsy. Reviewed, Interpreted and Dictated by Carlos Craven MD Transcribed by Jaja Sierra Authenticated and [facility]
== END 2025-03-18 23:59 | disposition home or self-care (01) ==
LOC: RAD 13:25
PROVIDERS: PCP Internal Medicine Adolescent Medicine; Visit Provider Nurse Practitioner
DX: I08.2 Rheumatic disorders of both aortic and tricuspid valves (principal); E04.1 Nontoxic single thyroid nodule; E66.9 Obesity, unspecified
CPT/HCPCS: 76536; 93306

== ENCOUNTER 2025-03-25 12:48 | Outpatient (CLI) | payer MEDICARE, SELFPAY ==
--- OUTSIDE RECORDS SUMMARY | 2025-03-25 12:51 | XMS_ITS | Clinical Summary ---
Author Organization [facility] Address [address] [place] [address] Care Team Providers Care Environmental Manager Name Role Phone Ezra Leyva MD Primary Care Provider [phone] Allergies Active Allergy Reactions Criticality Noted Date [...] mouth Daily. Active Blood Glucose Monitoring Suppl ([employer] Confirm Glucose Monitor) w/Device kit Use. Injects [...] us here at the [facility] as of 08/13/2019. She was HLA [...] us here at the [facility] as of 08/13/2019. She was HLA [...] Insurance MEDICARE A & B Care Teams Environmental Manager Relationship Specialty Start Date End Date Ezra Leyva MD [address] [facility] [address] [place] [address] PCP - General Adolescent Medicine 12/06/23
--- OUTSIDE RECORDS SUMMARY | 2025-03-25 12:51 | XMS_ITS ---
Author Organization [facility] Address [address] [place] [address] Care Team Providers Care Narrative Writer Name Role Phone Ezra Leyva MD Primary Care Provider [phone] Rheumatology - External Fill Status:Enrolled (Active) Start date:02/10/2024 Enrollment date:02/10/2024 Enrollment reason:Identified as being on target medication Current support & services provided:Benefits Investigation, External Pharmacy Dispensing Linked medications:Adalimumab (Active) Linked problems:Ankylosing spondylitis (Active) Case Team Name Relationship Phone Angela William Structural Fitter Patient Ca re Cake Maker William Snider Structural Fitter Cake Maker Brant Hebert PharmD Pharmacist Continued Care and Services Coordination
[2025-03-25 15:32] LABS: Free T4 (Free Thyroxine) 1.08 ng/dl (0.78-2.19)
[2025-03-25 16:03] LABS: Thyroid Stimulating Hormone < 0.02 uIU/mL (0.465-4.68)
== END 2025-03-25 23:59 | disposition home or self-care (01) ==
LOC: LAB 12:49
PROVIDERS: PCP Internal Medicine Adolescent Medicine; Visit Provider Nurse Practitioner
DX: E89.0 Postprocedural hypothyroidism (principal)
CPT/HCPCS: 36415; 84439; 84443

== ENCOUNTER 2025-03-30 07:56 | Outpatient (CLI) | payer MEDICARE, SELFPAY ==
--- OUTSIDE RECORDS SUMMARY | 2025-03-30 07:58 | XMS_ITS | Clinical Summary ---
Author Organization [facility] Address [address] [place] [address] Care Team Providers Care Advertising Assistant Name Role Phone Ezra Leyva MD Primary Care Provider [phone] Allergies Active Allergy Reactions Criticality Noted Date [...] mouth Daily. Active Blood Glucose Monitoring Suppl ([employer] Confirm Glucose Monitor) w/Device kit Use. Injects [...] us here at the [facility] as of 08/13/2019. She was HLA B27 [...] us here at the [facility] as of 08/13/2019. She was HLA B27 [...] Insurance MEDICARE A & B Care Teams Advertising Assistant Relationship Specialty Start Date End Date Ezra Leyva MD [address] [facility] [address] [place] [address] PCP - General Adolescent Medicine 12/06/23
--- OUTSIDE RECORDS SUMMARY | 2025-03-30 07:58 | XMS_ITS ---
Author Organization [facility] Address [address] [place] [address] Care Team Providers Care Television And Radio Repairer Name Role Phone Ezra Leyva MD Primary Care Provider [phone] Rheumatology - External Fill Status:Enrolled (Active) Start date:02/10/2024 Enrollment date:02/10/2024 Enrollment reason:Identified as being on target medication Current support & services provided:Benefits Investigation, External Pharmacy Dispensing Linked medications:Adalimumab (Active) Linked problems:Ankylosing spondylitis (Active) Case Team Name Relationship Phone Angela William Gig Tender Patient Ca re Dry Plasterer William Snider Gig Tender Dry Plasterer Brant Hebert PharmD Pharmacist Continued Care and Services Coordination
--- NOTE | 2025-03-30 08:00 | US_ITS ---
FINAL REPORT CLINICAL HISTORY: RT THYROID NODULE -- RT THRYOID FNA -- BETSY DILL FINDINGS: ULTRASOUND GUIDED THYROID BIOPSY HISTORY: Right Thyroid nodule/mass. TECHNIQUE: Informed consent was obtained from the patient.Timeout procedure was performed prior to beginning. Limitedsonographic evaluation of thyroid gland was performed to localize lesion of interest. The neck was prepped in a routine sterile fashion and locally anesthetized with 1% lidocaine. FNA was performed with 25-gauge needle under direct sonographic visualization. 4 passes were made. Cytology is pending. Procedure was well tolerated. CONCLUSION: 1. Technically successful thyroid fine needle aspiration of a large right thyroid nodule. Reviewed, Interpreted and Dictated by Carlos Craven MD Transcribed by Nia Elam PA-C Authenticated and [facility]
== END 2025-03-30 23:59 | disposition home or self-care (01) ==
LOC: RAD 07:57
PROVIDERS: PCP Internal Medicine Adolescent Medicine; Visit Provider Nurse Practitioner
DX: E01.0 Iodine-deficiency related diffuse (endemic) goiter (principal)
CPT/HCPCS: 10005

== ENCOUNTER 2025-03-31 14:34 | Outpatient (POV) | payer MEDICARE, SELFPAY ==
--- OUTSIDE RECORDS SUMMARY | 2025-03-31 14:40 | XMS_ITS ---
[facility] Address [address] [place] [address] Care Team Providers Care Bend Sorter Name Role Phone Ezra Leyva MD Primary Care Provider [phone] Rheumatology - External Fill Status:Enrolled (Active) Start date:02/10/2024 Enrollment date:02/10/2024 Enrollment reason:Identified as being on target medication Current support & services provided:Benefits Investigation, External Pharmacy Dispensing Linked medications:Adalimumab (Active) Linked problems:Ankylosing spondylitis (Active) Case Team Name Relationship Phone Angela William Event Organizer Patient Ca re Manager Business Management William Snider Event Organizer Manager Business Management Brant Hebert PharmD Pharmacist Continued Care and Services Coordination
--- OUTSIDE RECORDS SUMMARY | 2025-03-31 14:40 | XMS_ITS | Clinical Summary ---
Author Organization [facility] Address [address] [place] [address] Care Team Providers Care Order Taker Name Role Phone Ezra Leyva MD Primary Care Provider [phone] Allergies Active Allergy Reactions Criticality Noted Date [...] mouth Daily. Active Blood Glucose Monitoring Suppl ([employer] Confirm Glucose Monitor) w/Device kit Use. [...] us here at the [facility] as of 08/13/2019. She was HLA B27 [...] us here at the [facility] as of 08/13/2019. She was HLA B27 [...] Insurance MEDICARE A & B Care Teams Order Taker Relationship Specialty Start Date End Date Ezra Leyva MD [address] [facility] [address] [place] [address] PCP - General Adolescent Medicine 12/06/23
[2025-03-31 14:46] VITALS: BP 125/53; PULSE 88; RESP 14; O2SAT 96; BMI 37.4
--- NOTE | 2025-03-31 15:47 | EXP.PAIN.SOA ---
[facility] Disclaimer: The information contained in this section may have been updated after the patient was seen, as this information can be updated by other users. Medical History (Updated 03/22/25 @ 13:38 by ELY Stewart) Thyromegaly Thyroid nodule History of benign thyroid tumor Hoarseness Sore throat Dysphagia Kidney stone Chronic kidney disease Urinary tract infection Pneumonia History of COVID-19 Endometriosis Pelvic inflammatory disease (PID) History of stroke Osteoarthritis Fibromyalgia History of diverticulitis Irritable bowel syndrome (IBS) History of gastroesophageal reflux (GERD) Hypothyroid Diabetes mellitus, type 2 Hyperlipidemia Hypertension History of anemia Surgical History (Updated 03/22/25 @ 13:39 by ELY Stewart) History of partial thyroidectomy H/O thyroidectomy H/O colonoscopy H/O shoulder surgery History of hysterectomy History of tonsillectomy History of cholecystectomy Family History Father Throat cancer Family history of abdominal aortic aneurysm Mother Pancreatic cancer Family history of diabetes mellitus type II Family history of stroke Grandfather Family history of myocardial infarction Social History Smoking Status: Never smoker alcohol intake: never substance use type: denies use current occupational status: other Travel in the last 8 weeks?: None household members: spouse housing: house caffeine: Yes (daily) PM Subjective & Objective Subjective Subjective:: Patient is a pleasant 69-year-old female who presents today for worsening low back pain with radiating symptoms to her hip, buttocks and down her right calf. Patient rates that pain an 8 out of 10 and denies any new falls or injuries. Patient does state it is still that same pain we have treated her for in the past. Patient did have her last epidural injection of L5-S1 back in October that did provide 80 to 90% improvement. Patient does feel like it is worn off now. Patient does state that she does have other things going on where she had a biopsy yesterday on her thyroid and is having some trouble swallowing and is scheduled to see a GI doctor coming up. Patient is on a full-strength 325 mg aspirin. Her Manjit has been reviewed and is appropriate. Review of Systems: General: No recent weight changes, no fever, no sleep disturbances Respiratory: No cough, no shortness of air, no recurring pulmonary infections Cardiovascular/peripheral vascular: No chest pain, no palpitations, no edema, no shortness of breath Gastrointestinal: No new onset incontinence, normal bowel movements reported Genitourinary: No new onset incontinence Musculoskeletal: Low back pain, right leg numbness tingling Psychiatric: [Normal mood/affect] Neurological: [Denies weakness in extremities], [denies balance issues] Pain at rest (0-10 scale): 8 Objective Objective:: Physical Exam: General: Alert and oriented x3, no acute distress, pleasant and cooperative Lungs: Respirations even and unlabored, symmetrical chest expansion Eyes: PERRL Musculoskeletal: Flexion and extension of lumbar [spine] somewhat guarded secondary to pain, [antalgic gait noted] positive leg raise Neurological: Speech clear, no gross sensory deficit Has patient had previous pain injection?: No Conservative treatment options previously tried: Home exercise plan Length of treatment: Longer than 12 weeks Meds Home Medications and Allergies Home Medications ?Medication ?Instructions ?Recorded ?Confirmed ?Type calcium 600 mg (as 1 cap PO DAILY Supplement 10/23/17 03/31/25 History carbonate)-vitamin D3 5 mcg (200 unit) capsule (Calcium 600 + D(3)) cyanocobalamin (vitamin B-12) 1,000 mcg PO DAILY Supplement 10/23/17 03/31/25 History 1,000 mcg tablet (Vitamin B-12) docusate sodium 100 mg capsule 300 mg PO QHS constipation 10/23/17 03/31/25 History (Dulcolax Stool Softener (docusate)) gabapentin 300 mg capsule 300 mg PO BID Pain 90 days 10/23/17 03/31/25 History insulin human U-100 NPH-regulr 14 unit SUB-Q QAM dm 10/23/17 03/31/25 History 70-30 mix 100 unit/mL subcutaneous susp (Novolin 70/30 U-100 Insulin) levothyroxine 50 mcg tablet 50 mcg PO DAILY thyroid 90 days 10/23/17 03/31/25 History losartan 50 mg tablet 50 mg PO DAILY bp 90 days 10/23/17 03/31/25 History metformin 500 mg tablet 1,000 mg PO BID Diabetes 90 days 10/23/17 03/31/25 History pyridoxine (vitamin B6) 100 mg 100 mg PO HS Supplement 10/23/17 03/31/25 History tablet (Vitamin B-6) rosuvastatin 10 mg tablet 10 mg PO HS Cholesterol 90 days 08/20/18 03/31/25 History insulin detemir U-100 100 unit/mL 15 unit SQ HS dm 12/10/18 03/31/25 History (3 mL) subcutaneous pen loratadine-pseudoephedrine ER 10 1 each PO HS allergies 12/10/18 03/31/25 History mg-240 mg tablet,extended [id number] potassium 99 mg tablet 99 mg PO HS Supplement 12/10/18 03/31/25 History ferrous sulfate 325 mg (65 mg 325 mg PO DAILY Supplement 01/25/19 03/31/25 History iron) tablet pantoprazole 40 mg tablet,delayed 40 mg PO BID GERD 01/25/19 03/31/25 History release mupirocin 2 % topical ointment 1 ea topical DAILY . 11/05/21 03/31/25 History albuterol sulfate 2.5 mg/3 mL 2.5 mg inhalation QID PRN asthma 08/16/22 03/31/25 History (0.083 %) solution for nebulization aspirin 325 mg capsule 325 mg PO DAILY Blood thinner 08/16/22 03/31/25 History baclofen 10 mg tablet 10 mg PO DAILY Pain 08/16/22 03/31/25 History citicoline 500 mg capsule 1 mg PO DAILY . 08/16/22 03/31/25 History ([employer]) clobetasol 0.05 % topical cream 1 applic topical HS . 08/16/22 03/31/25 History multivitamin 1 tab PO DAILY Supplement 08/16/22 03/31/25 History pumpkin seed extract-soy germ 300 1 cap PO DAILY Supplement 08/16/22 03/31/25 History mg capsule (Azo Bladder Control) semaglutide 7 mg tablet (Rybelsus) 7 mg PO DAILY . 08/16/22 03/31/25 History insulin glargine U-300 conc 300 30 unit SQ HS 02/19/24 03/31/25 History unit/mL (3 mL) subcutaneous pen (Toujeo Max U-300 SoloStar) ropinirole 0.5 mg tablet 0.5 mg PO BID 02/19/24 03/31/25 History ropinirole 2 mg tablet 2 mg PO DIRECTED 02/22/25 03/31/25 History New Prescriptions to Start Prescriptions: Allergies Allergy/AdvReac Type Severity Reaction Status Date / Time clonazepam Allergy Severe I-HIVES Verified 03/22/25 13:33 diazepam Allergy Severe I-HIVES Verified 03/22/25 13:33 meperidine Allergy Severe HEMORRHAGE\ Verified 03/22/25 13:33 Penicillins Allergy Severe COMA Verified 03/22/25 13:33 tegaserod (From Zelnorm) Allergy Intermediate I-HIVES Verified 03/22/25 13:33 promethazine Allergy Mild HIVES,NAUSE Verified 03/22/25 13:33 A tramadol Allergy Mild I-HIVES Verified 03/22/25 13:33 canagliflozin (From Invokana) Allergy Unknown Verified 03/22/25 13:33 capsaicin (From Capzasin) Allergy Unknown Blister Verified 03/22/25 13:33 duloxetine (From Cymbalta) Allergy Unknown Verified 03/22/25 13:33 menthol (From Capzasin) Allergy Unknown Blister Verified 03/22/25 13:33 metformin (From Janumet) Allergy Unknown Verified 03/22/25 13:33 sitagliptin (From Janumet) Allergy Unknown Verified 03/22/25 13:33 empagliflozin (From Allergy Hives Verified 03/22/25 13:33 Jardiance) lisinopril AdvReac Cough Verified 03/22/25 13:33 CRANBERRIES Allergy Unknown I-HIVES Uncoded 03/22/25 13:33 Assessment and Plan *Assessment and plan (1) Lumbar radiculopathy: Status: Acute Category: Medical Code(s): M54.16 - Radiculopathy, lumbar region (2) Degenerative disc disease: Status: Acute Category: Medical Plan Patient is experiencing worsening pain in her low back with numbness and tingling into her lower extremities. Patient did have limited range of motion of her lumbar spine with a positive leg raise. I did discuss with patient that I do believe they would benefit from a lumbar epidural steroid injection. Risk and benefits were discussed with patient and the patient would like to proceed forward with this plan of care. Patient is on full-strength aspirin and I have discussed with her that she will have to stop this medication for a full week prior to this injection. Patient acknowledges understanding and agrees with plan of care.. Patient has tried and failed conservative therapy including oral medications, heat and ice, topicals and continued at home stretching exercise for longer than 12 weeks between injections. Patient has had chronic back pain for longer than 6 months. Patient did previously have a lumbar epidural back in October that provided 80 percent relief and lasted longer than 3 months. We will schedule the patient for an LESI L5-S1 under fluoroscopy. Patient has been instructed to contact the clinic with any concerns before the next appointment. Dr. Jones has reviewed this note and agrees with this plan of care. This note was dictated using voice recognition software and make contain errors or omissions. All injections are used with Lidocaine, Bupivacaine and dexamethasone. Occasionally urine drug screen is needed to verify patient's compliance with our office pain contract. This is ordered based off specific treatments related to chronic pain with the potential to abuse certain medications.
== END 2025-03-31 23:59 | disposition home or self-care (01) ==
LOC: SC.PAIN 14:35
PROVIDERS: PCP Internal Medicine Adolescent Medicine; Visit Provider Nurse Practitioner Family
DX: M54.16 Radiculopathy, lumbar region (principal); Z79.82 Long term (current) use of aspirin
CPT/HCPCS: 99212; G0463

== ENCOUNTER 2025-05-24 09:48 | Day surgery (SDC) | payer MEDICARE, SELFPAY ==
[2025-05-24 10:01] VITALS: BP 144/52; PULSE 94; RESP 16; O2SAT 97; BMI 36.9
--- NOTE | 2025-05-24 10:13 | EXP.PAIN.PRO ---
Procedure Date: 05/24/25 Time: 10:00 Anesthesiologist:: Travon Jimenez CRNA Complications:: None Pre-procedure Diagnosis:: Degenerative disc lumbar spine multilevels. Lumbar radiculopathy. Post-procedure Diagnosis:: Same. Indications for Procedure:: Patient is a very pleasant 69-year-old female comes her clinic today for lumbar epidural steroid injection. Patient describes low lumbar back pain as constant, dull, aching. Patient also reports bilateral hip and leg radicular symptoms at times. She rates her pain 7/10. Procedure Details:: Procedure: Lumbar epidural steroid injection under fluoroscopy Informed consent was obtained and the risks and benefits of the procedure were explained to the patient. The patient was taken to the procedure room and noninvasive monitors placed, including noninvasive blood pressure cuff and pulse oximeter. The back was viewed using C-arm Fluoroscopy and prepped using Chloraprep as a cleansing solution and the L4-L5 interspace was palpated. Skin and subcutaneous tissues were anesthetized using lidocaine 1.5% and a 25-gauge needle. After this, an 18-gauge Touhy epidural needle was placed into the L4-L5 interspace and advanced using fluoroscopic guidance and loss of resistance to air until the epidural space was encountered. After confirmation of needle placement in the epidural space, with dye, a solution containing normal saline, 3 mL and dexamethasone 10 mg were incrementally injected into the lumbar epidural space. The patient tolerated the procedure well with no complications. The patient was observed in the Pain Clinic and then discharged home neurologically intact. Plan and Disposition:: Patient was discharged without incident.
[2025-05-24 10:14] LABS: POC Glucose,Bedside 134 gm/dL (70-110)
[2025-05-24] MEDS: DEXAMETHASONE 10MG/ML 1ML VIAL 10 MG (10:15)
[2025-05-24 10:16] VITALS: BP 144/52; PULSE 94; RESP 18; O2SAT 97
[2025-05-24 10:18] VITALS: BP 144/52; PULSE 94; RESP 18; O2SAT 97
[2025-05-24 10:21] VITALS: BP 110/65; PULSE 87; RESP 16; O2SAT 97
== END 2025-05-24 10:21 | disposition home or self-care (01) ==
PROVIDERS: PCP Internal Medicine Adolescent Medicine; Visit Provider Nurse Anesthetist, Certified Registered
DX: M51.16 Intervertebral disc disorders with radiculopathy, lumbar region (principal); E03.9 Hypothyroidism, unspecified; E11.22 Type 2 diabetes mellitus with diabetic chronic kidney disease; I12.9 Hypertensive chronic kidney disease with stage 1 through stage 4 chronic kidney disease, or unspecified chronic kidney disease; N18.9 Chronic kidney disease, unspecified; K21.9 Gastro-esophageal reflux disease without esophagitis; M79.7 Fibromyalgia; E78.5 Hyperlipidemia, unspecified; Z86.73 Personal history of transient ischemic attack (TIA), and cerebral infarction without residual deficits; Z88.0 Allergy status to penicillin; Z88.8 Allergy status to other drugs, medicaments and biological substances; Z88.5 Allergy status to narcotic agent; Z91.018 Allergy to other foods; Z79.85 Long-term (current) use of injectable non-insulin antidiabetic drugs; Z79.84 Long term (current) use of oral hypoglycemic drugs; Z79.4 Long term (current) use of insulin; Z79.890 Hormone replacement therapy; Z79.899 Other long term (current) drug therapy
CPT/HCPCS: 62323; 82962; J1100

== ENCOUNTER 2025-05-25 06:32 | Day surgery (SDC) | payer MEDICARE, SELFPAY ==
--- NOTE | 2025-05-25 06:54 | EXP.HP ---
History of Present Illness *Admission Date: 05/25/25 *History of present illness: Mrs. Byrd is a 69-year-old female who is here for diagnostic EGD secondary to dysphagia. This began about 1-1/2 years ago and was initially thought to be related to her thyroid. She was found to have a solid mass on the thyroid but biopsies were benign. She did have a partial thyroidectomy years ago. Her dysphagia is to both solids and liquids. She will sometimes have to regurgitate food. She does take pantoprazole twice daily and [place] daily which helps to control her heartburn and reflux. She does state that her father had throat cancer diagnosed in his 30s. She does report a history of a hiatal hernia. She also struggles with constipation. She believes her last endoscopy was 5 years ago (Jake Enrique MD). She had an attempted colonoscopy in 2022 but the bowel preparation was poor. She does take 3 stool softeners daily and if she goes up to a week without a bowel movement she will use an enema. The examination is deemed medically necessary for diagnostic EGD. The patient has been seen, interviewed and examined prior to the procedure by both myself and the anesthesia provider. [facility] Disclaimer: The information contained in this section may have been updated after the patient was seen, as this information can be updated by other users. Medical History Thyromegaly Thyroid nodule History of benign thyroid tumor Hoarseness Sore throat Dysphagia Kidney stone Chronic kidney disease Urinary tract infection Pneumonia History of COVID-19 Endometriosis Pelvic inflammatory disease (PID) History of stroke Osteoarthritis Fibromyalgia History of diverticulitis Irritable bowel syndrome (IBS) History of gastroesophageal reflux (GERD) Hypothyroid Diabetes mellitus, type 2 Hyperlipidemia Hypertension History of anemia Surgical History History of partial thyroidectomy H/O thyroidectomy H/O colonoscopy H/O shoulder surgery History of hysterectomy History of tonsillectomy History of cholecystectomy Family History Father Throat cancer Family history of abdominal aortic aneurysm Mother Pancreatic cancer Family history of diabetes mellitus type II Family history of stroke Grandfather Family history of myocardial infarction Social History (Updated 05/25/25 @ 07:05 by Almita Machado RN) Smoking Status: Never smoker alcohol intake: never substance use type: denies use current occupational status: other Travel in the last 8 weeks?: None household members: spouse housing: house caffeine: Yes (daily) Have you lived/traveled outside [place] in past 30 days?: No Contact w/someone who lives/traveled outside US past 30 days?: No Exposure to someone with infectious disease in past 14 days?: No Do you have a fever (greater than 100.4 F or 38 C)?: No Have you tested positive for COVID-19?: No Exposed to someone with COVID-19 in past 14 days?: No Do you have a sore throat?: No Do you have a cough?: No Do you have any weakness?: No Do you have any diarrhea?: No Are you experiencing any unusual bleeding?: No Do you have any muscle aches/pain?: No Do you have any abdominal pain?: No Are you experiencing loss of taste or smell?: No Other Medical History Have you received the Flu Vaccine for this season: No Have you received the Pneumonia Vaccine: No Review of Systems Review of Systems Review of systems (narrative): Negative *Cardiovascular Comments: Negative *Gastrointestinal Comments: Negative *Genitourinary Comments: Negative *Musculoskeletal Comments: Negative *Neurologic Comments: Negative Meds Home Medications and Allergies Home Medications ?Medication ?Instructions ?Recorded ?Confirmed ?Type calcium 600 mg (as 1 cap PO DAILY Supplement 10/23/17 05/25/25 History carbonate)-vitamin D3 5 mcg (200 unit) capsule (Calcium 600 + D(3)) docusate sodium 100 mg capsule 300 mg PO QHS constipation 10/23/17 05/25/25 History (Dulcolax Stool Softener (docusate)) insulin human U-100 NPH-regulr 14 unit SUB-Q QAM dm 10/23/17 05/25/25 History 70-30 mix 100 unit/mL subcutaneous susp (Novolin 70/30 U-100 Insulin) levothyroxine 50 mcg tablet 50 mcg PO DAILY thyroid 90 days 10/23/17 05/25/25 History losartan 50 mg tablet 50 mg PO DAILY bp 90 days 10/23/17 05/25/25 History metformin 500 mg tablet 1,000 mg PO BID Diabetes 90 days 10/23/17 05/25/25 History rosuvastatin 10 mg tablet 10 mg PO HS Cholesterol 90 days 08/20/18 05/25/25 History ferrous sulfate 325 mg (65 mg 325 mg PO DAILY Supplement 01/25/19 05/25/25 History iron) tablet pantoprazole 40 mg tablet,delayed 40 mg PO BID GERD 01/25/19 05/25/25 History release albuterol sulfate 2.5 mg/3 mL 2.5 mg inhalation QID PRN asthma 08/16/22 05/25/25 History (0.083 %) solution for nebulization aspirin 325 mg capsule 325 mg PO DAILY Blood thinner 08/16/22 05/25/25 History semaglutide 7 mg tablet (Rybelsus) 7 mg PO DAILY . 08/16/22 05/25/25 History insulin glargine U-300 conc 300 30 unit SQ HS 02/19/24 05/25/25 History unit/mL (3 mL) subcutaneous pen (Toujeo Max U-300 SoloStar) ropinirole 2 mg tablet 2 mg PO DIRECTED 02/22/25 05/25/25 History baclofen 10 mg tablet 10 mg PO TID Pain 04/18/25 05/25/25 History clobetasol 0.05 % scalp solution 0.05 applic topical . 04/18/25 05/25/25 History coffee extract 100 mg-phosphatidyl 100 cap PO . 04/18/25 05/25/25 History serine 100 mg capsule (Neuriva Original) diphenhydramine HCl 25 mg capsule 25 mg PO HS PRN . 04/18/25 05/25/25 History (Benadryl) gabapentin 300 mg capsule 300 mg PO QID Pain 90 days #360 04/18/25 05/25/25 History caps levocetirizine 5 mg tablet (Xyzal) 5 mg PO DAILY 04/18/25 05/25/25 History pumpkin seed extract-soy germ 300 1 cap PO BID Supplement 04/18/25 05/25/25 History mg capsule (Azo Bladder Control) ropinirole 0.5 mg tablet 2 mg PO BID 04/18/25 05/25/25 History New Prescriptions to Start Prescriptions: Allergies Allergy/AdvReac Type Severity Reaction Status Date / Time clonazepam Allergy Severe I-HIVES Verified 05/25/25 07:16 diazepam Allergy Severe I-HIVES Verified 05/25/25 07:16 meperidine Allergy Severe HEMORRHAGE\ Verified 05/25/25 07:16 Penicillins Allergy Severe COMA Verified 05/25/25 07:16 tegaserod (From Zelnorm) Allergy Intermediate I-HIVES Verified 05/25/25 07:16 promethazine Allergy Mild HIVES,NAUSE Verified 05/25/25 07:16 A tramadol Allergy Mild I-HIVES Verified 05/25/25 07:16 canagliflozin (From Invokana) Allergy Unknown Other Verified 05/25/25 07:16 capsaicin (From Capzasin) Allergy Unknown Blister Verified 05/25/25 07:16 duloxetine (From Cymbalta) Allergy Unknown Unknown Verified 05/25/25 07:16 allergy reaction menthol (From Capzasin) Allergy Unknown Blister Verified 05/25/25 07:16 metformin (From Janumet) Allergy Unknown Hives Verified 05/25/25 07:16 sitagliptin (From Janumet) Allergy Unknown Other Verified 05/25/25 07:16 empagliflozin (From Allergy Hives Verified 05/25/25 07:16 Jardiance) lisinopril AdvReac Cough Verified 05/25/25 07:16 CRANBERRIES Allergy Unknown I-HIVES Uncoded 04/18/25 15:07 Exam *Routine HEENT Exam Head: Present normocephalic Eye: Present EOMI and PERRL ENT: Present mucous membranes moist *Routine Neck Exam Neck: Present supple *Routine Respiratory Exam Respiratory: Present CTA bilaterally *Routine Cardiovascular Exam Cardiovascular: Present RRR *Routine Abdominal Exam Abdominal: Present soft and normoactive bowel sounds; Absent tenderness *Routine Rectal Exam Rectal:: deferred *Routine Genitalia Exam Genitalia:: deferred *Routine Extremities Exam Extremities: Absent cyanosis, clubbing or edema *Routine Skin Exam Skin: Present warm; Absent rash *Routine Neurological Exam Neurological: Present alert and oriented X3 Assessment and Plan *Assessment and plan (1) Dysphagia: Status: Acute Qualifiers: Dysphagia type: unspecified Qualified Code(s): R13.10 - Dysphagia, unspecified Category: Medical Code(s): R13.10 - Dysphagia, unspecified (2) History of benign thyroid tumor: Status: Acute Category: Medical Code(s): Z86.018 - Personal history of other benign neoplasm (3) Acid reflux: Status: Acute Category: Medical Code(s): K21.9 - Gastro-esophageal reflux disease without esophagitis (4) Chronic constipation: Status: Acute Category: Medical Code(s): K59.09 - Other constipation (5) Hoarseness: Status: Acute Category: Medical Code(s): R49.0 - Dysphonia Plan A/P: 1. Dysphagia (both solids and liquids) is the preprocedural diagnosis. The patient does have a long history of acid reflux. She reports some hoarseness and has history of a benign thyroid tumor. The patient will be anesthetized/sedated using MAC sedation. The patient has been seen and examined. Cardiac and lung assessment prior to the examination is stable. Proceed with planned diagnostic EGD.
--- NOTE | 2025-05-25 06:59 | P.PCN_ITS ---
[facility] Procedure Note Date: 05/25/25 Time: 08:22 Procedure Note:: Upper Endoscopy Procedure Report: Esophagogastroduodenoscopy with cold biopsies and TTS balloon dilation Endoscopost: Joby Castro II, MD Referring Physician: Ezra Leyva M.D. Date of Procedure: May 25, 2025 Equipment: Olympus GIF-1100 standard upper endoscope Sedation: MAC sedation Indications: Mrs. Byrd is a 69-year-old female who is here for diagnostic EGD secondary to dysphagia. This began about 1-1/2 years ago and was initially thought to be related to her thyroid. She was found to have a solid mass on the thyroid but biopsies were benign. She did have a partial thyroidectomy years ago. Her dysphagia is to both solids and liquids. She will sometimes have to regurgitate food. She does take pantoprazole twice daily and Millie-Goode daily (after taking Rybelsus) which helps to control her heartburn and reflux. She does state that her father had throat cancer diagnosed in his 30s. She does report a history of a hiatal hernia. She also struggles with constipation. She believes her last endoscopy was 5 years ago (Jake Enrique MD). She had an attempted colonoscopy in 2022 but the bowel preparation was poor. She does take 3 stool softeners daily and if she goes up to a week without a bowel movement she will use an enema. It was recommended to the patient to get MiraLAX plus Metamucil. She could not find this at the pharmacy but did get a fiber gummy and I believe Mirafiber and her bowel function has improved. The examination is deemed medically necessary for diagnostic EGD. Procedure: Prior to the procedure, a history and physical exam was performed, and patient's medications and allergies were reviewed. The risks, benefits and alternatives of the sedation and procedure were discussed with the patient. All questions were answered and informed consent was obtained. The patient was brought to the procedure room. Patient identification and proposed procedure were verified by the physician and the nurse. The patient was placed in a left lateral decubitus position and the scope was passed under direct vision. Throughout the procedure, the patient's blood pressure, pulse, and oxygen saturations were monitored continuously. The upper GI endoscopy was accomplished without difficulty. The patient tolerated the procedure well. Findings: The scope was passed directly into the upper esophagus and advanced to the third portion of the duodenum. The post bulbar duodenum and duodenal bulb were normal with normal mucosa and conniventes. 2 cold biopsies were taken from the second portion of the duodenum for the disaccharidase assay. The scope was withdrawn through a normal duodenal bulb and pylorus into the stomach. There was linear reactive gastropathy of the antrum. There was some mild chronic atrophic gastritis of the body and fundus. Cold biopsies were taken along the lesser curvature. Upon retroflexion there was no hiatal hernia. The scope was then withdrawn into the esophagus. There was no evidence of reflux esophagitis or Dent's esophagus. There was no Schatzki's ring, corrugation or furrowing. 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 There were also tertiary contractions and evidence of moderate esophageal dysmotility. The entire esophagus was dilated to 60 Tongan/20 mm with a TTS hydrostatic balloon. There was fracturing of the proximal esophageal web. There was some cricopharyngeal spasm. The remainder of the esophageal mucosa was normal. Impression: 1. Proximal esophageal web and cricopharyngeal spasm status post dilation to 20 mm 2. Nonerosive GERD with moderate esophageal dysmotility 3. Linear reactive gastropathy of antrum and mild chronic atrophic gastritis Plan: I will follow-up the biopsies and disaccharidase assay. I will discuss the findings with the patient and family.
[2025-05-25 07:05] VITALS: BP 136/87; PULSE 60; RESP 16; TEMP 36.6; O2SAT 99; BMI 36.9
--- NOTE | 2025-05-25 07:27 | P.PNANES_ITS ---
[facility] Disclaimer: The information contained in this section may have been updated after the patient was seen, as this information can be updated by other users. Medical History Thyromegaly Thyroid nodule History of benign thyroid tumor Hoarseness Sore throat Dysphagia Kidney stone Chronic kidney disease Urinary tract infection Pneumonia History of COVID-19 Endometriosis Pelvic inflammatory disease (PID) History of stroke Osteoarthritis Fibromyalgia History of diverticulitis Irritable bowel syndrome (IBS) History of gastroesophageal reflux (GERD) Hypothyroid Diabetes mellitus, type 2 Hyperlipidemia Hypertension History of anemia Surgical History History of partial thyroidectomy H/O thyroidectomy H/O colonoscopy H/O shoulder surgery History of hysterectomy History of tonsillectomy History of cholecystectomy Family History Father Throat cancer Family history of abdominal aortic aneurysm Mother Pancreatic cancer Family history of diabetes mellitus type II Family history of stroke Grandfather Family history of myocardial infarction Social History (Updated 05/25/25 @ 07:05 by Almita Machado RN) Smoking Status: Never smoker alcohol intake: never substance use type: denies use current occupational status: other Travel in the last 8 weeks?: None household members: spouse housing: house caffeine: Yes (daily) Have you lived/traveled outside [place] in past 30 days?: No Contact w/someone who lives/traveled outside US past 30 days?: No Exposure to someone with infectious disease in past 14 days?: No Do you have a fever (greater than 100.4 F or 38 C)?: No Have you tested positive for COVID-19?: No Exposed to someone with COVID-19 in past 14 days?: No Do you have a sore throat?: No Do you have a cough?: No Do you have any weakness?: No Do you have any diarrhea?: No Are you experiencing any unusual bleeding?: No Do you have any muscle aches/pain?: No Do you have any abdominal pain?: No Are you experiencing loss of taste or smell?: No [facility] Anesthesia Checklist Patient Identification Patient Identification: Arm Band and Verbal (Name & ) Structural Data Admitted From: Home Planned Operative Procedure/s: EGD Consent for Planned Operative Procedure(s) Verified: Yes Verified Documents: Surgical Consent NPO Status Verified Time NPO: 00:00 Additional verifications Anesthesia Reactions: No Airway Assessment Mallampati Score:: Class II C-Spine Mobility Assessed: Yes TMJ Mobility Assessed: Yes Dentition: Dentures-good fit (Bottom edentulous) Neurological Assessment Level of Consciousness: Awake, Alert and Appropriate Hx Seizures: No Numbness or tingling in extremities: No Anesthesia Plan Anesthesia Risk discussed: Yes Anesthesia Plan: Verified ASA Class: III Anesthesia Type: MAC
[2025-05-25 07:29] LABS: POC Glucose,Bedside 116 gm/dL (70-110)
[2025-05-25] MEDS: LACTATED RINGERS 1000ML 1,000 ML 50 ML IV (07:31)
[2025-05-25 08:22] VITALS: BP 156/73; PULSE 63; RESP 16; TEMP 36.1; O2SAT 98
[2025-05-25 08:32] VITALS: BP 149/70; PULSE 67; RESP 17; TEMP 36.1; O2SAT 97
[2025-05-25 08:42] VITALS: BP 152/66; PULSE 67; RESP 18; TEMP 36.1; O2SAT 97
[2025-05-25 08:52] VITALS: BP 128/54; PULSE 58; RESP 18; TEMP 36.1; O2SAT 99
[2025-05-30 16:15] LABS: Interpretation Notes (.); Lactase 29.49 (>/= 14.0); Maltase 200.39 (>/= 110.0); Palatinase 16.16 (>/= 8.5); Reference Notes (.); Sucrase 54.94 (>/= 25.0)
== END 2025-05-25 09:20 | disposition home or self-care (01) ==
PROVIDERS: PCP Internal Medicine Adolescent Medicine; Visit Provider Internal Medicine Gastroenterology
PROC: 0DJ08ZZ Inspection of Upper Intestinal Tract, Via Natural or Artificial Opening Endoscopic (ICD-10-PCS; CPT 43239; principal; 2025-05-25 08:00)
DX: K29.40 Chronic atrophic gastritis without bleeding (principal); K21.9 Gastro-esophageal reflux disease without esophagitis; K22.4 Dyskinesia of esophagus; K31.89 Other diseases of stomach and duodenum; K59.09 Other constipation; E03.9 Hypothyroidism, unspecified; E78.5 Hyperlipidemia, unspecified; E11.22 Type 2 diabetes mellitus with diabetic chronic kidney disease; I12.9 Hypertensive chronic kidney disease with stage 1 through stage 4 chronic kidney disease, or unspecified chronic kidney disease; N18.9 Chronic kidney disease, unspecified; Z79.4 Long term (current) use of insulin; Z79.85 Long-term (current) use of injectable non-insulin antidiabetic drugs; Z88.0 Allergy status to penicillin; Z88.5 Allergy status to narcotic agent; Z88.8 Allergy status to other drugs, medicaments and biological substances; Z86.018 Personal history of other benign neoplasm; Z80.2 Family history of malignant neoplasm of other respiratory and intrathoracic organs
CPT/HCPCS: 43239; 43249; 82657; 82962; 88305; C1726; J2003; J2704; J7120

== ENCOUNTER 2025-06-29 09:42 | Outpatient (CLI) | payer MEDICARE, SELFPAY ==
[2025-06-29 10:35] LABS: Hematocrit 41.6 % (37.0-47.0); Hemoglobin 12.9 g/dL (12.2-16.2); Immature Granulocytes % 0.4 %; Mean Corpuscular HGB Conc 31.0 g/dL (31.8-35.4); Mean Corpuscular Hemoglobin 27.3 pg (27.0-31.2); Mean Corpuscular Volume 88.1 fl (81-99); Nucleated Red Blood Cells % 0 %; Platelet Count 240 K/mm3 (142-424); Red Blood Count 4.72 M/mm3 (4.20-5.40); Red Cell Distribution Width-SD 50.2 fL; White Blood Count 6.9 K/mm3 (4.8-10.8)
[2025-06-29 10:58] LABS: Alanine Aminotransferase 18 U/L (12-78); Albumin Level 4.0 g/dl (3.5-5.0); Albumin/Globulin Ratio 1.4 (1.1-1.8); Alkaline Phosphatase 85 U/L (38-126); Anion Gap 9.9 mEq/L (5-15); Aspartate Amino Transferase 30 U/L (14-36); Bilirubin,Total 0.6 mg/dl (0.2-1.3); Blood Urea Nitrogen 12 mg/dl (7-17); Calcium 9.6 mg/dl (8.4-10.2); Carbon Dioxide 28 mmol/L (22.0-30.0); Chloride 104 mmol/L (98-107); Creatinine,Serum 0.60 mg/dl (0.52-1.04); Estimated Glomerular Filt Rate 99 ml/min (>60); GFR (African American) 120 ML/MIN (>60); Globulin 2.9 g/dL (1.3-3.2); Glucose 104 mg/dl (74-100); Potassium 3.9 mmoL/L (3.5-5.1); Sodium 138 mmol/L (136-145); Total Protein,Serum 6.9 g/dl (6.3-8.2)
[2025-06-29 11:07] LABS: Iron 71 ug/dL (37-170)
[2025-06-29 11:17] LABS: Total Iron Binding Capacity 338 ug/dL (265-497)
[2025-06-29 11:24] LABS: Free Thyroxine Index 1.9 ug/dL (5.93-13.13); T4 (Thyroxine) 6.7 ug/dl (5.53-11.0); Triiodothryronine (T3) Uptake 29 % (23.5-40.5)
[2025-06-29 11:37] LABS: Thyroid Stimulating Hormone 0.14 uIU/mL (0.465-4.68)
[2025-06-29 11:41] LABS: Ferritin 17.3 ng/ml (11.1-264)
[2025-06-29 12:05] LABS: Hemoglobin A1C 5.5 % (4.0-6.0)
== END 2025-06-29 23:59 | disposition home or self-care (01) ==
LOC: LAB 09:44
PROVIDERS: PCP Internal Medicine Adolescent Medicine; Visit Provider Internal Medicine Adolescent Medicine
DX: E11.42 Type 2 diabetes mellitus with diabetic polyneuropathy (principal); E78.5 Hyperlipidemia, unspecified; D50.9 Iron deficiency anemia, unspecified
CPT/HCPCS: 36415; 80053; 82728; 83036; 83540; 83550; 84436; 84443; 84479; 85025

== ENCOUNTER 2025-07-05 10:19 | Outpatient (CLI) | payer MEDICARE, SELFPAY ==
--- NOTE | 2025-07-05 10:23 | XR_ITS ---
FINAL REPORT CLINICAL HISTORY: CERVICAL RADICULOPATHY best images possible due to pt condition FINDINGS: CERVICAL SPINE Five views were obtained. The lateral view is limited by patient's shoulders. Odontoid view is limited by dental hardware. No fracture is seen through C5. The prevascular soft tissues at C2 are normal. IMPRESSION: Limited exam. Consider CT given the limitations. Reviewed, Interpreted and Dictated by Eduarda Nunn MD Transcribed by Jaja Sierra Authenticated and [facility]
--- OUTSIDE RECORDS SUMMARY | 2025-07-05 10:23 | XMS_ITS ---
Author Organization [facility] Address [address] [place] [address] Care Team Providers Care Supervisor Cell Operation Name Role Phone Ezra Leyva MD Primary Care Provider [phone] Rheumatology - External Fill Status:Enrolled (Active) Start date:02/10/2024 Enrollment date:02/10/2024 Enrollment reason:Identified as being on target medication Current support & services provided:Benefits Investigation, External Pharmacy Dispensing Linked medications:Adalimumab (Active) Linked problems:Ankylosing spondylitis (Active) Case Team Name Relationship Phone Angela William Iap Displays Analyst Patient Ca re International Trade Compliance Manager William Snider Iap Displays Analyst International Trade Compliance Manager Brant Hebert PharmD Pharmacist Continued Care and Services Coordination
--- OUTSIDE RECORDS SUMMARY | 2025-07-05 10:23 | XMS_ITS | Clinical Summary ---
Author Organization [facility] Address [address] [place] [address] Care Team Providers Care Internal Auditor Name Role Phone Ezra Leyva MD Primary Care Provider [phone] Allergies Active Allergy Reactions Criticality Noted Date [...] mouth Daily. Active Blood Glucose Monitoring Suppl (judge.me Confirm Glucose Monitor) w/Device kit Use. Injects [...] us here at the [facility] as of 08/13/2019. She was HLA B27 [...] us here at the [facility] as of 08/13/2019. She was HLA B27 [...] 12/15/2023 HEPATITIS C SCREENING 12/15/2023 INFLUENZA VACCINE 03/11/2025 Insurance MEDICARE A & B Care Teams Internal Auditor Relationship Specialty Start Date End Date Ezra Leyva MD [address] [facility] [address] [place] [address] PCP - General Adolescent Medicine 12/06/23
--- NOTE | 2025-07-05 10:24 | XR_ITS ---
FINAL REPORT CLINICAL HISTORY: ROTATOR CUFF SYNDROME OR RT SHOULDER best images possible due to pt condition FINDINGS: Four views of the right shoulder were obtained. There is no fracture or dislocation. There is degenerative joint disease of the AC and glenohumeral joints. Soft tissues are unremarkable. IMPRESSION: Degenerative joint disease. Reviewed, Interpreted and Dictated by Eduarda Nunn MD Transcribed by Jaja Sierra Authenticated and [facility]
== END 2025-07-05 23:59 | disposition home or self-care (01) ==
LOC: RAD 10:20
PROVIDERS: PCP Internal Medicine Adolescent Medicine; Visit Provider Internal Medicine Adolescent Medicine
DX: M19.011 Primary osteoarthritis, right shoulder (principal); M54.12 Radiculopathy, cervical region; M75.101 Unspecified rotator cuff tear or rupture of right shoulder, not specified as traumatic
CPT/HCPCS: 72050; 73030